=== PATIENT | male | born 1955 | race Caucasian/White ===

== ENCOUNTER 2016-02-29 19:24 | Emergency (ER) | payer OTHER ==
[~2016-02-29] VITALS: Ht 170.2 cm; Wt 120.0 kg
[~2016-02-29 19:24] MED LIST: ATOR40TA49 PO; CARV6.252 PO; LASI20TA PO; PLAV75TA PO; ST JTAB PO; SYNT150T OR
[2016-02-29 19:27] VITALS: BP 110/59; PULSE 98; RESP 16; TEMP 97.6; O2SAT 94
[2016-02-29 19:28] VITALS: PULSE 96; RESP 18; TEMP 98; O2SAT 96
[2016-02-29 23:23] VITALS: BP 100/56; PULSE 85; RESP 14; O2SAT 96
[2016-02-29] MEDS ORDERED: FURO1TAB62 PO (23:43)
[2016-02-29] MEDS ORDERED: LIPI40TA PO (23:43)
[2016-02-29] MEDS ORDERED: ASPI1TAB69 PO (23:43)
[2016-02-29] MEDS ORDERED: LEVO.15 PO (23:43)
[2016-02-29] MEDS ORDERED: SODIUM CHLORIDE 0.9% FLUSH 5 ML FLUSH IVF PRN (23:45)
--- NOTE | 2016-02-29 23:55 | PD ---
HPI Chief Complaint: Edema Time Seen by Provider: 23:31 Travel History International Travel<30 days: No Contact w/Intl Traveler<30days: No Traveled to known affect area: No History of Present Illness HPI This is A 60 year old male with past medical history of diabetes, who presents with bilateral leg edema distal to the knees. He states that he has ran out of the water pills prescribed by his primary care physician, and for the past several days, both legs have been swelling with itchiness predominantly in the left leg. He has purulent lesions predominantly in the left leg that he reports is being managed with by a wound care nurse. He denies, any history of congestive heart failure, cardiovascular disease, and family history of cardiovascular disease. Patient also denies any shortness of breath, palpitations, or chest pain. PFSH Past Medical History Hx Anticoagulant Therapy: Yes Arthritis: Yes Cardiac Catheterization: Yes Cardiovascular Problems: Yes ([place] 2012) Diabetes: Yes Patient Takes Glucophage: No Diminished Hearing: Yes (SLIGHT HEARING LOSS ) Hypertension: No Thyroid Disease: Yes (HYPO) Influenza Vaccination: Yes Past Surgical History Cardiac Surgery: Yes (STENT PLACED IN 09/28) Other Surgery: Yes (rt ft) Social History Alcohol Use: No Tobacco Use: No Substance Use: No Allergies-Medications (Allergen,Severity, Reaction): Coded Allergies: No Known Allergies (Verified , 02/29/16) Reported Meds & Prescriptions Reported Meds & Active Scripts Active Keflex (Cephalexin) 500 Mg Cap 500 Mg PO Q6H 10 Days Clindamycin (Clindamycin HCl) 150 Mg Cap 450 Mg PO Q6H 7 Days Lasix (Furosemide) 20 Mg Tab 20 Mg PO BID Reported Synthroid (Levothyroxine Sodium) 150 Mcg Tab 150 Mcg PO DAILY Lipitor (Atorvastatin Calcium) 40 Mg Tab 40 Mg PO DAILY Aspirin 81 Mg Tabdr 162 Mg PO DAILY Review of Systems Except as stated in HPI: all other systems reviewed are Neg Physical Exam Narrative GENERAL: obese male appears disheveled but oriented x3 SKIN: Warm, edema from knee to lower leg, patient has cellulitis of the left lower extremity anterior portions. He has a weeping wound to the posterior aspect of the distal most catheter. Is a small wound. No abscesses appreciated HEAD: Atraumatic. Normocephalic. EYES: Pupils equal and round. No scleral icterus. No injection or drainage. ENT: No nasal bleeding or discharge. Mucous membranes pink and moist. NECK: Trachea midline. No JVD. CARDIOVASCULAR: Regular rate and rhythm. RESPIRATORY: No accessory muscle use. Clear to auscultation. Breath sounds equal bilaterally. GASTROINTESTINAL: Abdomen soft, non-tender, nondistended. Hepatic and splenic margins not palpable. MUSCULOSKELETAL: Extremities without clubbing, cyanosis, bilateral edema in lower extremities. No obvious deformities. NEUROLOGICAL: Awake and alert. No obvious cranial nerve deficits. Motor grossly within normal limits. Five out of 5 muscle strength in the arms and legs. Normal speech. PSYCHIATRIC: Appropriate mood and affect; insight and judgment normal. Data Data Last Documented VS Vital Signs Date Time Temp Pulse Resp B/P Pulse Ox O2 Delivery O2 Flow Rate FiO2 03/01/16 02:57 74 16 99/63 95 Room Air 02/29/16 19:28 98.0 Orders Electrocardiogram (02/29/16 23:31) B-Type Natriuretic Peptide (02/29/16 23:31) Complete Blood Count With Diff (02/29/16 23:31) Comprehensive Metabolic Panel (02/29/16 23:31) Magnesium (Mg) (02/29/16 23:31) Prothrombin Time / Inr (Pt) (02/29/16 23:31) Act Partial Throm Time (Ptt) (02/29/16 23:31) Troponin I (02/29/16 23:31) Chest, Single Ap (02/29/16 23:31) Ecg Monitoring (02/29/16 23:31) Bilateral Bp Monitoring (02/29/16 23:31) Iv Access Insert/Monitor (02/29/16 23:31) Oximetry (02/29/16 23:31) Oxygen Administration (02/29/16 23:31) Sodium Chloride 0.9% Flush (Ns Flush) (02/29/16 23:45) Acetamin-Hydrocod 325-5 Mg ([place] 5-325 (03/01/16 01:00) Vancomycin Inj (Vancomycin Inj) (03/01/16 01:45) Clindamycin Inj (Cleocin Inj) (03/01/16 01:45) Labs Laboratory Tests Test 02/29/16 23:56 White Blood Count 8.8 TH/MM3 Red Blood Count 3.41 MIL/MM3 Hemoglobin 8.7 GM/DL Hematocrit 27.1 % Mean Corpuscular Volume 79.6 FL Mean Corpuscular Hemoglobin 25.7 PG Mean Corpuscular Hemoglobin 32.3 % Concent Red Cell Distribution Width 15.3 % Platelet Count 261 TH/MM3 Mean Platelet Volume 10.4 FL Neutrophils (%) (Auto) 65.3 % Lymphocytes (%) (Auto) 19.3 % Monocytes (%) (Auto) 6.6 % Eosinophils (%) (Auto) 7.4 % Basophils (%) (Auto) 1.4 % Neutrophils # (Auto) 5.8 TH/MM3 Lymphocytes # (Auto) 1.7 TH/MM3 Monocytes # (Auto) 0.6 TH/MM3 Eosinophils # (Auto) 0.7 TH/MM3 Basophils # (Auto) 0.1 TH/MM3 CBC Comment DIFF FINAL Differential Comment Prothrombin Time 10.8 SEC Prothromb Time International 1.0 RATIO Ratio Activated Partial 24.0 SEC Thromboplast Time Sodium Level 139 MEQ/L Potassium Level 4.0 MEQ/L Chloride Level 107 MEQ/L Carbon Dioxide Level 22.6 MEQ/L Anion Gap 9 MEQ/L Blood Urea Nitrogen 26 MG/DL Creatinine 1.98 MG/DL Estimat Glomerular Filtration 35 ML/MIN Rate Random Glucose 91 MG/DL Calcium Level 9.0 MG/DL Magnesium Level 2.0 MG/DL Total Bilirubin 0.4 MG/DL Aspartate Amino Transf 75 U/L (AST/SGOT) Alanine Aminotransferase 47 U/L (ALT/SGPT) Alkaline Phosphatase 63 U/L Troponin I LESS THAN 0.02 NG/ML B-Type Natriuretic Peptide 7 PG/ML Total Protein 6.6 GM/DL Albumin 2.7 GM/DL [facility] Medical Decision Making Medical Screen Exam Complete: Yes Emergency Medical Condition: No Differential Diagnosis Congestive Heart Failure Bilateral edema cellulitis of the left leg Chronic Kidney Disease possible uncontrolled diabetes Diabetic Neuropathy DVT is highly unlikely Sepsis is highly unlikely Narrative Course Patient roomed in the emergency department, he appears disheveled but nontoxic. He does have bilateral lower extremity edema which is equal bilaterally. He has some mild cellulitis on the left lower extremity and a nonhealing wound of the lateral aspect of the distal most left thigh. Labs are reassuring he is not septic. His cellulitis is amenable to outpatient treatment. He was given clindamycin in the ER. We'll prescribe clindamycin the patient is homeless and will also prescribe Keflex. Discussed with the patient return to ED criteria. Diagnosis Primary Impression: Pedal edema Additional Impression: Cellulitis Admitting Information Admitting Physician Requests: Admit Med/Other Pt SpecificInfo: Prescription(s) given Scripts Cephalexin (Keflex)500 Mg [id number] Mg PO Q6H 10 Days Ref 0 Prov:Girma Ramirez MD 03/01/16 Clindamycin 150 Mg [id number] Mg PO Q6H 7 Days Ref 0 Prov:Girma Ramirez MD 03/01/16 Furosemide (Lasix)20 Mg Tab20 Mg PO BID #60 TAB Ref 0 Prov:Girma Ramirez MD 03/01/16 Disposition: 01 DISCHARGE HOME Condition: Stable Girma Ramirez MD Feb 29, 2016 23:55
[2016-03-01 00:25] LABS: AUTOMATED NEUTROPHIL # 5.8 TH/MM3 (1.8-7.7); BASOPHIL # 0.1 TH/MM3 (0-0.2); BASOPHIL % 1.4 % (0.0-2.0); EOSINOPHIL # 0.7 TH/MM3 (0-0.4); EOSINOPHIL % 7.4 % (0.0-4.0); HEMATOCRIT 27.1 % (39.0-51.0); HEMO FLAGS DIFF FINAL; LYMPH % 19.3 % (9.0-44.0); LYMPHOCYTE # 1.7 TH/MM3 (1.0-4.8); MEAN CELL VOLUME 79.6 FL (80.0-100.0); MEAN CORPUSCULAR HEMOGLOBIN 25.7 PG (27.0-34.0); MEAN CORPUSCULAR HGB CONC 32.3 % (32.0-36.0); MONO % 6.6 % (0.0-8.0); NEUT % 65.3 % (16.0-70.0); PLATELET COUNT 261 TH/MM3 (150-450); RED BLOOD COUNT 3.41 MIL/MM3 (4.50-5.90); RED CELL DISTRIBUTION WIDTH 15.3 % (11.6-17.2); WHITE BLOOD COUNT 8.8 TH/MM3 (4.0-11.0)
[2016-03-01 00:33] LABS: PROTHROMBIN TIME - PATIENT 10.8 SEC (9.8-11.6)
--- NOTE | 2016-03-01 00:42 | RADRPT ---
EXAM DATE/TIME: 02/29/2016 23:58 [facility] COMPARISON: CHEST SINGLE AP, October 02, 2012, 17:39. INDICATIONS : Pt having chest pain. MEDICAL HISTORY : None. SURGICAL HISTORY : None. ENCOUNTER: Initial ACUITY: 1 day PAIN SCORE: 7/10 LOCATION: Bilateral chest FINDINGS: The cardiac silhouette is enlarged in transverse diameter. The lungs are free of acute parenchymal op acity. No effusions are identified. The aortic knob is prominent with tortuosity of the descending th oracic aorta. CONCLUSION: 1. Cardiomegaly. No acute pulmonary disease. Bunny Mcclain MD on March 01, 2016 at 0:40 Board Certified Radiologist. This report was verified electronically.
[2016-03-01 00:57] LABS: BLOOD UREA NITROGEN 26 MG/DL (7-18); GLOMERULAR FILTRATION RATE 35 ML/MIN (>89)
[2016-03-01 00:58] LABS: ALT (GPT) 47 U/L (12-78); ANION GAP 9 MEQ/L (5-15); AST (GOT) 75 U/L (15-37); BICARBONATE 22.6 MEQ/L (21.0-32.0); CHLORIDE 107 MEQ/L (98-107); SODIUM (NA) 139 MEQ/L (136-145)
[2016-03-01 00:59] LABS: ALKALINE PHOSPHATASE 63 U/L (45-117); TOTAL BILIRUBIN ADULT 0.4 MG/DL (0.2-1.0)
[2016-03-01] MEDS ORDERED: ACETAMINOPHEN/HYDROcodone 325 MG/5 MG TAB PO ONE (01:00)
[2016-03-01 01:13] VITALS: BP 104/60; PULSE 86; RESP 20; O2SAT 100
[2016-03-01] MEDS ORDERED: VANCOMYCIN INJ 1,000 MG in SODIUM CHLOR 0.9% 250 ML INJ 250 ML IV ONE (01:45)
[2016-03-01] MEDS ORDERED: CLINDAMYCIN INJ 900 MG in SODIUM CHLORIDE 0.9% INJ 100 ML IV ONE (01:45)
[2016-03-01] MEDS ORDERED: FURO1TAB62 PO (02:13)
[2016-03-01] MEDS ORDERED: CEPH-460 PO (02:13)
[2016-03-01] MEDS ORDERED: CLIN1CAP5 PO (02:13)
[2016-03-01 02:57] VITALS: BP 99/63; PULSE 74; RESP 16; O2SAT 95
[2016-03-01 06:23] VITALS: BP 109/62
--- NOTE | 2016-03-01 15:40 | EKG ---
Date Performed: 02/29/2016 Time Performed: 23:38:29 PTAGE: 60 years EKG: Sinus rhythm MARKED LEFT AXIS DEVIATION Right bundle branch block LATERAL MYOCARDIAL INFARCTION New Q wave in V2, cannot rule out anterior injury Clinical correlation is recommended ABNORMAL ECG PREVIOUS TRACING : 04/10/2015 15.57 DOCTOR: Hamilton Saldivar Interpretating Date/Time 03/01/2016 15:39:03
[2016-03-05] MEDS ORDERED: PLAV75TA29 PO (15:44)
== END 2016-03-01 06:42 | disposition home or self-care (01) ==
LOC: NEPC 19:24
DX: R60.0 Localized edema (principal); L03.116 Cellulitis of left lower limb; E11.9 Type 2 diabetes mellitus without complications; I25.2 Old myocardial infarction; R94.31 Abnormal electrocardiogram [ECG] [EKG]; Z79.82 Long term (current) use of aspirin; Z79.899 Other long term (current) drug therapy
CPT/HCPCS: 71010; 80053; 83735; 83880; 84484; 85025; 85610; 85730; 93005; 96365

== ENCOUNTER 2016-03-13 08:12 | Emergency (ER) | payer OTHER ==
[~2016-03-13 08:12] MED LIST changes: +ASPI1TAB69 PO; -ATOR40TA49 PO; -CARV6.252 PO; +CEPH-460 PO; +CLIN1CAP5 PO; +FURO1TAB62 PO; -LASI20TA PO; +LEVO.15 PO; +LIPI40TA PO; -PLAV75TA PO; +PLAV75TA29 PO; -ST JTAB PO; -SYNT150T OR
[2016-03-13 08:18] VITALS: BP 92/57; PULSE 68; RESP 16; TEMP 97.6; O2SAT 97
[2016-03-13] MEDS ORDERED: ACETAMINOPHEN 500 MG CPLT PO ONE (08:30)
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
[2016-03-13 09:13] LABS: BASOPHIL % 0.4 % (0.0-2.0); EOSINOPHIL # 0.8 TH/MM3 (0-0.4); EOSINOPHIL % 10.2 % (0.0-4.0); HEMATOCRIT 27.8 % (39.0-51.0); HEMO FLAGS DIFF FINAL; LYMPH % 19.7 % (9.0-44.0); LYMPHOCYTE # 1.5 TH/MM3 (1.0-4.8); MEAN CELL VOLUME 79.7 FL (80.0-100.0); MEAN CORPUSCULAR HEMOGLOBIN 25.4 PG (27.0-34.0); MEAN CORPUSCULAR HGB CONC 31.9 % (32.0-36.0); MONO % 6.4 % (0.0-8.0); NEUT % 63.3 % (16.0-70.0); PLATELET COUNT 352 TH/MM3 (150-450); RED BLOOD COUNT 3.49 MIL/MM3 (4.50-5.90); RED CELL DISTRIBUTION WIDTH 15.1 % (11.6-17.2); WHITE BLOOD COUNT 7.8 TH/MM3 (4.0-11.0)
[2016-03-13 09:53] LABS: BICARBONATE 21.7 MEQ/L (21.0-32.0)
[2016-03-13 09:54] LABS: BLOOD UREA NITROGEN 15 MG/DL (7-18)
[2016-03-13 09:56] LABS: ALT (GPT) 43 U/L (12-78); GLOMERULAR FILTRATION RATE 34 ML/MIN (>89)
[2016-03-13 09:58] LABS: TOTAL BILIRUBIN ADULT 0.5 MG/DL (0.2-1.0)
[2016-03-13 09:59] LABS: ALKALINE PHOSPHATASE 63 U/L (45-117)
[2016-03-13 10:01] LABS: ANION GAP 10 MEQ/L (5-15); CHLORIDE 105 MEQ/L (98-107); POTASSIUM 3.4 MEQ/L (3.5-5.1); SODIUM (NA) 137 MEQ/L (136-145)
--- NOTE | 2016-03-13 10:08 | RADHPO ---
EXAM DATE/TIME: 03/13/2016 09:19 [facility] COMPARISON: No previous studies available for comparison. INDICATIONS : Right upper leg pain, no known injury. MEDICAL HISTORY : None. SURGICAL HISTORY : None. ENCOUNTER: Initial ACUITY: 1 day PAIN SCORE: 10/10 LOCATION: Right femur FINDINGS: 2 views of the right femur demonstrates no evidence of fracture or dislocation. The femoral head is a bnormally flattened and subluxed laterally within a very shallow acetabulum consistent with developme ntal hip dysplasia. The bones are normally mineralized. Adjacent soft tissues are unremarkable. CONCLUSION: No evidence of acute injury. Abnormal appearance of the femoral head and acetabulum consistent with d evelopmental hip dysplasia.. Charlette Schaefer MD on March 13, 2016 at 10:05 Board Certified Radiologist. This report was verified electronically.
--- NOTE | 2016-03-13 10:09 | RADHPO ---
EXAM DATE/TIME: 03/13/2016 09:25 [facility] COMPARISON: No previous studies available for comparison. INDICATIONS : Right lower leg pain, no known injury. MEDICAL HISTORY : None. SURGICAL HISTORY : None. ENCOUNTER: Initial ACUITY: 1 day PAIN SCORE: 10/10 LOCATION: Right lower leg FINDINGS: Two view examination of the right tibia demonstrates no evidence of fracture or dislocation. Bony mi neralization is normal. The soft tissue structures are intact. Lateral view of the ankle suggest fus ion of the calcaneus and talus. CONCLUSION: No acute disease. Charlette Schaefer MD on March 13, 2016 at 10:06 Board Certified Radiologist. This report was verified electronically.
[2016-03-13 10:16] LABS: AST (GOT) 79 U/L (15-37)
[2016-03-13 11:29] VITALS: BP 114/66
[2016-03-14] MEDS ORDERED: TYLETAB34 PO (09:08)
[2016-03-14] MEDS ORDERED: SYNT25TA PO (09:18)
== END 2016-03-13 11:37 | disposition home or self-care (01) ==
LOC: PHED 08:12
DX: T14.8 Other injury of unspecified body region (principal); Z99.3 Dependence on wheelchair; Z79.01 Long term (current) use of anticoagulants; E11.9 Type 2 diabetes mellitus without complications; X50.0XXA Overexertion from strenuous movement or load, initial encounter
CPT/HCPCS: 73552; 73590; 80053; 83880; 85025; 99284

== ENCOUNTER 2016-03-14 08:39 | Emergency (ER) | payer OTHER, MEDICAID ==
[~2016-03-14] VITALS: Ht 167.6 cm; Wt 118.0 kg
[~2016-03-14 08:39] MED LIST changes: -ASPI1TAB69 PO; -CEPH-460 PO; -CLIN1CAP5 PO; -LEVO.15 PO; -LIPI40TA PO; -PLAV75TA29 PO
[2016-03-14 09:01] VITALS: BP 95/57; PULSE 72; RESP 18; TEMP 97.6; O2SAT 99
[2016-03-14] MEDS ORDERED: TYLETAB34 PO (09:08)
--- NOTE | 2016-03-14 09:10 | PD ---
HPI Chief Complaint: Pain: Acute or Chronic Time Seen by Provider: 08:54 Travel History International Travel<30 days: No Contact w/Intl Traveler<30days: No Traveled to known affect area: No History of Present Illness HPI This is a frequent visitor to the ER. He was seen here yesterday for the same reason he is here today. He called 911 and asked paramedics to bring him here for left hip pain. He has chronic left hip pain. No acute injury. He is wheelchair bound and homeless. Symptoms severity is mild to moderate PFSH Past Medical History Hx Anticoagulant Therapy: Yes Arthritis: Yes Cardiac Catheterization: Yes Cardiovascular Problems: Yes ([place] 2012) Diabetes: Yes Diminished Hearing: Yes (SLIGHT HEARING LOSS ) Hypertension: No Thyroid Disease: Yes (HYPO-NO MEDS) Past Surgical History Cardiac Surgery: Yes (STENT PLACED IN 09/28) Other Surgery: Yes (rt ft) Social History Alcohol Use: No Tobacco Use: No Substance Use: No Allergies-Medications (Allergen,Severity, Reaction): Coded Allergies: No Known Allergies (Verified , 03/13/16) Reported Meds & Prescriptions Reported Meds & Active Scripts Active Lasix (Furosemide) 20 Mg Tab 20 Mg PO BID Review of Systems General / Constitutional: No: Fever HENT: No: Headaches Cardiovascular: No: Chest Pain or Discomfort Physical Exam Narrative GASTROINTESTINAL: Abdomen soft, non-tender, nondistended. Positive bowel sounds. No hepato-splenomegaly, or palpable masses. No guarding. NECK: Symmetrical appearance, midline trachea. No mass or crepitus. Thyroid without enlargement, tenderness, or mass. He has pain with range of motion of either hip Data Data Last Documented VS Vital Signs Date Time Temp Pulse Resp B/P Pulse Ox O2 Delivery O2 Flow Rate FiO2 03/14/16 09:04 72 16 03/14/16 09:01 97.6 95/57 99 MDM Medical Decision Making Medical Screen Exam Complete: Yes Emergency Medical Condition: Yes Medical Record Reviewed: Yes Differential Diagnosis Arthritis, contusion, chronic pain Narrative Course I have reviewed the patient's electronic medical record. Reviewed his visit from yesterday. He had lab studies and x-rays done yesterday. I don't think repeat workup from yesterday is indicated. I wrote him some Tylenol 3 for intermittent symptom relief if needed. He says he can fill prescriptions. Recommend primary care follow-up Diagnosis Primary Impression: Chronic left hip pain Additional Impression: Homelessness Additional Instructions: The patient was advised to follow up with their physician and return if they worsen. The patient was warned about potential sedation for the medications they will receive on prescription. Med/Other Pt SpecificInfo: Prescription(s) given Scripts Acetaminophen-Codeine (Tylenol-Codeine #3)300-30 mg Tab1 Tab PO Q6HR PRN (PAIN) #20 TAB Ref 0 Prov:Lucas Mueller MD 03/14/16 Disposition: 01 DISCHARGE HOME Condition: Stable Lucas Mueller MD Mar 14, 2016 09:10
[2016-03-14] MEDS ORDERED: SYNT25TA PO (09:18)
== END 2016-03-14 10:18 | disposition home or self-care (01) ==
LOC: PHED 08:39
DX: M25.552 Pain in left hip (principal); G89.29 Other chronic pain; Z59.0 Homelessness
CPT/HCPCS: 99283

== ENCOUNTER 2016-03-15 02:35 | Emergency (ER) | payer OTHER, MEDICAID ==
[~2016-03-15] VITALS: Ht 167.6 cm; Wt 125.0 kg
[~2016-03-15 02:35] MED LIST changes: +SYNT25TA PO; +TYLETAB34 PO
[2016-03-15 02:42] VITALS: BP 90/55; PULSE 70; RESP 18; TEMP 98.7; O2SAT 96
--- NOTE | 2016-03-15 02:48 | PD ---
HPI Chief Complaint: Pain: Acute or Chronic Time Seen by Provider: 02:40 Travel History International Travel<30 days: No Contact w/Intl Traveler<30days: No History of Present Illness HPI 60-year-old homeless man frequent emergency department gas presents with lower extremity cramping. He states he was started on a water pill for some cellulitis a week or so ago. He's been having cramping in his legs at night. He also some numbness in his toes. No other complaints. History Past Medical History Narrative Medical Diabetes CAD Hypothyroid Social History Alcohol Use: No Tobacco Use: No Allergies-Medications (Allergen,Severity, Reaction): Coded Allergies: No Known Allergies (Verified , 03/15/16) Reported Meds & Prescriptions Reported Meds & Active Scripts Active Tylenol-Codeine #3 (Acetaminophen-Codeine) 300-30 mg Tab 1 Tab PO Q6HR PRN Lasix (Furosemide) 20 Mg Tab 20 Mg PO BID Reported Synthroid (Levothyroxine Sodium) 25 Mcg Tab 25 Mcg PO DAILY Review of Systems Except as stated in HPI: all other systems reviewed are Neg Physical Exam Narrative GENERAL: Disheveled obese adult male, no acute distress. SKIN: Warm and dry. CARDIOVASCULAR: Regular rate and rhythm. No murmur appreciated. RESPIRATORY: No accessory muscle use. Clear to auscultation. Breath sounds equal bilaterally. GASTROINTESTINAL: Abdomen soft, non-tender, nondistended. Hepatic and splenic margins not palpable. MUSCULOSKELETAL: No obvious deformities. Chronic edema both lower extremities. Wrapped wounds on the left leg. NEUROLOGICAL: Awake and alert, but drowsy. No obvious cranial nerve deficits. Motor grossly within normal limits. Normal speech. Data Data Last Documented VS Vital Signs Date Time Temp Pulse Resp B/P Pulse Ox O2 Delivery O2 Flow Rate FiO2 03/15/16 02:42 98.7 70 18 90/55 96 Orders Basic Metabolic Panel (Bmp) (03/15/16 02:44) Sodium Chlor 0.9% 1000 Ml Inj (Ns 1000 M (03/15/16 03:00) Labs Laboratory Tests Test 03/15/16 02:50 Sodium Level 140 MEQ/L Potassium Level 3.7 MEQ/L Chloride Level 108 MEQ/L Carbon Dioxide Level 21.7 MEQ/L Anion Gap 10 MEQ/L Blood Urea Nitrogen 19 MG/DL Creatinine 1.92 MG/DL Estimat Glomerular Filtration 36 ML/MIN Rate Random Glucose 93 MG/DL Calcium Level 8.7 MG/DL [facility] Medical Decision Making Medical Screen Exam Complete: Yes Emergency Medical Condition: Yes Interpretation(s) BMP remarkable for mildly elevated BUN/creatinine. Differential Diagnosis Cramping, pain, electrolyte abnormality, other Narrative Course Medical decision making 5 year-old man presents with cramping in his legs. There is recently started on a water pill. We'll just recheck his potassium. Otherwise supportive treatment. Diagnosis Primary Impression: Leg cramping Qualified Code: R25.2 - Cramp of both lower extremities Additional Instructions: Follow-up with a primary physician for further evaluation of her chronic medical problems. Med/Other Pt SpecificInfo: No Change to Meds Disposition: 01 DISCHARGE HOME Condition: Stable Darin Hidalgo MD Mar 15, 2016 02:48
[2016-03-15] MEDS ORDERED: SODIUM CHLOR 0.9% 1000 ML INJ 1,000 ML IV ONE (03:00)
[2016-03-15 03:41] LABS: BICARBONATE 21.7 MEQ/L (21.0-32.0); POTASSIUM 3.7 MEQ/L (3.5-5.1)
== END 2016-03-15 07:20 | disposition home or self-care (01) ==
LOC: NEPE 02:35
DX: R25.2 Cramp and spasm (principal)
CPT/HCPCS: 80048; 96360; 99283; J7030

== ENCOUNTER 2016-04-30 01:19 | Inpatient (IN) | payer OTHER, MEDICARE ==
[~2016-04-30] VITALS: Ht 167.6 cm; Wt 132.0 kg
[2016-04-30] VITALS (10 sets, daily range): BP systolic 85–133; BP diastolic 50–69; PULSE 22–88; RESP 16–22; TEMP 97.5–97.9; O2SAT 95–100
--- NOTE | 2016-04-30 02:34 | PD ---
HPI Chief Complaint: Pain: Acute or Chronic Time Seen by Provider: 02:30 Travel History International Travel<30 days: No Contact w/Intl Traveler<30days: No Traveled to known affect area: No History of Present Illness HPI Patient comes in by EMS complaining of left shoulder, right knee, and right hip pain after falling out of his wheelchair yesterday at his personal [facility]. Patient states he was seen at different ER where he had his right leg ultrasound and an x-ray of his left ankle. Patient states she forgot to mention his left shoulder yesterday. Denies any head injury or loss of consciousness. Patient having pain that he describes as achy like in nature is worse with certain movement in all 3 joints. Patient denies doing anything else for this prior coming to the emergency department. Denies any other known injuries or concerns. Denies any chest pain, shortness of breath, nausea, fevers, or abdominal pain. PFSH Past Medical History Hx Anticoagulant Therapy: Yes (ASA) Arthritis: Yes Cardiac Catheterization: Yes Cardiovascular Problems: Yes High Cholesterol: Yes Coronary Artery Disease: Yes Diabetes: Yes Diminished Hearing: Yes (SLIGHT HEARING LOSS ) Hypertension: No Integumentary: Yes (wounds to bilat legs) Thyroid Disease: Yes (HYPO-) Past Surgical History Cardiac Surgery: Yes (STENT PLACED IN 09/28) Other Surgery: Yes (rt ft) Social History Alcohol Use: No Tobacco Use: No (never) Substance Use: No Allergies-Medications (Allergen,Severity, Reaction): Coded Allergies: No Known Allergies (Verified , 04/30/16) Reported Meds & Prescriptions Reported Meds & Active Scripts Active Tylenol-Codeine #3 (Acetaminophen-Codeine) 300-30 mg Tab 1 Tab PO Q6HR PRN Lasix (Furosemide) 20 Mg Tab 20 Mg PO BID Reported Synthroid (Levothyroxine Sodium) 25 Mcg Tab 25 Mcg PO DAILY Review of Systems Except as stated in HPI: all other systems reviewed are Neg Physical Exam Narrative GENERAL: Well-developed, overly nourished, in no acute distress, and non-ill appearing. SKIN: Warm and dry. Erythematous and bilateral lower extremities. Patient reports this is chronic. HEAD: Atraumatic. Normocephalic. EYES: Pupils equal and round. EOMI. No scleral icterus. No injection or drainage. ENT: No nasal bleeding or discharge. Mucous membranes pink and moist. NECK: Trachea midline. Supple. No nuclear rigidity. CARDIOVASCULAR: Dorsal and radial pulses 2+, intact, and equal bilaterally. Capillary refill less than 2 seconds. RESPIRATORY: No accessory muscle use. No respiratory distress. MUSCULOSKELETAL: No obvious deformities. No clubbing. No cyanosis. 1+ edema bilateral lower extremities patient reports is chronic. Full range of motion. Shoulder:FROM equal BL with passive flexion, extension, Abduction, Adduction, internal/external rotation, and pronation/supination. Sensation equal BL deltoid muscles. Pulses equal BL distal to injury. Capillary refill less than 2 seconds distal to injury and equal BL. FROM distal to injury and equal BL. Strength distal to injury equal BL. NV intact distal to injury equal BL. Flexion and extension of thumb equal BL. Equal strength and movement with abduction/adductions of BL fingers. [employer] strength equal BL. Patient reports tenderness to palpation left lateral shoulder.Knee: Negative patellar apprehension, varus and valgus maneuvers, anterior draw test, and Fermín test. Pulses equal BL distal to injury. Capillary refill less than 2 seconds distal to injury and equal BL. FROM distal to injury and equal BL. Strength distal to injury equal BL. NV intact distal to injury. Dorsal pulses equal BL. Patient reports tenderness anterior aspect of right knee.Hip: FROM and equal BL with passive flexion, extension, Abduction, Adduction, and internal/ external rotation. Pulses equal BL distal to injury. Capillary refill less than 2 seconds distal to injury and equal BL. FROM distal to injury and equal BL. Strength distal to injury equal BL. NV intact distal to injury and equal BL. Plantar flexion and dorsal flexion equal BL. Dorsal pulses equal BL. Patient reports pain with passive movement of right hip. NEUROLOGICAL: Awake and alert. No obvious cranial nerve deficits. Motor grossly within normal limits. Normal speech. PSYCHIATRIC: Appropriate mood and affect; insight and judgment normal. Data Data Last Documented VS Vital Signs Date Time Temp Pulse Resp B/P Pulse Ox O2 Delivery O2 Flow Rate FiO2 04/30/16 09:53 53 20 105/67 100 Room Air 04/30/16 01:28 97.5 Orders Shoulder, Complete (>2vws) (04/30/16 ) Knee, Complete (4vws) (04/30/16 ) Hip, Uni(Ap&Lat) W Ap Pelvis (04/30/16 ) Complete Blood Count With Diff (3/15/17 07:50) Comprehensive Metabolic Panel (04/30/16 07:50) Urinalysis - C+S If Indicated (04/30/16 07:50) Chest, Single Ap (04/30/16 ) Blood Culture (04/30/16 07:50) Lactic Acid (04/30/16 07:50) Clindamycin Inj (Cleocin Inj) (04/30/16 08:00) Morphine Inj (Morphine Inj) (04/30/16 08:00) Ondansetron Inj (Zofran Inj) (04/30/16 08:00) Us Testicles W Doppler (04/30/16 ) Sodium Chlorid 0.9% 500 Ml Inj (Ns 500 M (04/30/16 08:30) Ciprofloxacin 400 Mg Premix (Cipro 400 M (04/30/16 10:00) Admit Order (Ed Use Only) (04/30/16 10:44) Labs Laboratory Tests Test 04/30/16 08:02 White Blood Count 7.3 TH/MM3 Red Blood Count 3.79 MIL/MM3 Hemoglobin 9.7 GM/DL Hematocrit 29.6 % Mean Corpuscular Volume 78.1 FL Mean Corpuscular Hemoglobin 25.6 PG Mean Corpuscular Hemoglobin 32.8 % Concent Red Cell Distribution Width 16.8 % Platelet Count 183 TH/MM3 Mean Platelet Volume 10.5 FL Neutrophils (%) (Auto) 68.3 % Lymphocytes (%) (Auto) 18.2 % Monocytes (%) (Auto) 5.4 % Eosinophils (%) (Auto) 7.6 % Basophils (%) (Auto) 0.5 % Neutrophils # (Auto) 5.0 TH/MM3 Lymphocytes # (Auto) 1.3 TH/MM3 Monocytes # (Auto) 0.4 TH/MM3 Eosinophils # (Auto) 0.6 TH/MM3 Basophils # (Auto) 0.0 TH/MM3 CBC Comment DIFF FINAL Differential Comment Sodium Level 138 MEQ/L Potassium Level 3.4 MEQ/L Chloride Level 109 MEQ/L Carbon Dioxide Level 21.8 MEQ/L Anion Gap 7 MEQ/L Blood Urea Nitrogen 25 MG/DL Creatinine 2.03 MG/DL Estimat Glomerular Filtration 33 ML/MIN Rate Random Glucose 107 MG/DL Lactic Acid Level 1.3 mmol/L Calcium Level 8.8 MG/DL Magnesium Level 2.1 MG/DL Total Bilirubin 0.2 MG/DL Aspartate Amino Transf 87 U/L (AST/SGOT) Alanine Aminotransferase 27 U/L (ALT/SGPT) Alkaline Phosphatase 70 U/L Total Creatine Kinase 1746 U/L Creatine Kinase MB 28.6 NG/ML Creatine Kinase MB % 1.6 % Total Protein 7.0 GM/DL Albumin 3.1 GM/DL MDM Medical Decision Making Medical Screen Exam Complete: Yes Emergency Medical Condition: Yes Differential Diagnosis Fracture, strain, contusion, malingering, other Narrative Course Patient is refusing CAT scan for further evaluation of incidental finding noted on pelvic x-ray of the right hip. Patient states he cannot lay flat and has not been able to do so for several years. He states this incidental finding is a chronic condition and is from an old injury that he never got fixed. Patient denies any pain in his left hip. I discussed the findings x-rays of arthritic findings noted on shoulder x-ray and chronic right femoral head deformities that is unchanged from his previous x-rays. Patient in no obvious distress upon re-evaluation. All pertinent Radiology result(s) discussed with patient. I discussed patient with Dr. Delgado who is in agreement with plan of care and disposition. Any questions/concerns in reference to patient diagnosis/condition discussed and clarified prior to patient's discharge. Reinforced sheer importance of close follow up with patient 's primary physician or primary care clinic and orthopedics. Diagnosis Primary Impression: Left shoulder pain Qualified Code: M25.512 - Acute pain of left shoulder Additional Impressions: Right knee pain Qualified Code: M25.561 - Acute pain of right knee Right hip pain Referrals: Israel Mcclain MD Patient Instructions: Arthritis (ED), General Instructions, Hip Pain (ED), Knee Pain (ED), Shoulder Pain (ED) Condition: Stable Mendoza [place] Apr 30, 2016 02:34 Mendoza [place] Apr 30, 2016 02:34
--- NOTE | 2016-04-30 03:37 | RADRPT ---
EXAM DATE/TIME: 04/30/2016 02:53 [facility] COMPARISON: CHEST SINGLE AP, February 29, 2016, 23:58. INDICATIONS : Shoulder pain. MEDICAL HISTORY : None. SURGICAL HISTORY : None. ENCOUNTER: Initial ACUITY: 1 day PAIN SCORE: 0/10 LOCATION: Left shoulder FINDINGS: 2 views of the left shoulder. Bone alignment within normal limits. Deformity of the humeral head and glenoid indicating arthrosis. This finding is also seen on the prior chest x-ray of 02/29/2016. No rosana dence of acute fracture. Mild acromioclavicular joint arthritic findings. CONCLUSION: 1. Moderate severity left glenohumeral joint arthritic findings. 2. Mild acromioclavicular joint arthritic findings. Jose Wheeler MD on April 30, 2016 at 3:32 Board Certified Radiologist. This report was verified electronically.
--- NOTE | 2016-04-30 03:45 | RADRPT ---
EXAM DATE/TIME: 04/30/2016 03:06 [facility] COMPARISON: FEMUR RIGHT (AP & LAT/2VWS), March 13, 2016, 9:19. INDICATIONS : Hip pain. MEDICAL HISTORY : None. SURGICAL HISTORY : None. ENCOUNTER: Initial ACUITY: 1 day PAIN SCORE: 0/10 LOCATION: Right hip FINDINGS: 3 views of the right hip and pelvis. There is chronic deformity of the right femoral head enlargement and flattening of the femoral head contour indicating coxa magna deformity. No evidence of dislocati on. Severe narrowing of the right hip. Deformity of the proximal left femur and apparent superior sub luxation/dislocation of the left femoral head noted. CONCLUSION: 1. 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 Most likely etiology is prior developm ental dysplasia of the hip. No acute fracture identified. Findings are unchanged from prior right fem ur radiographs. 2. There is deformity of the left femoral head as well with possible subluxation/dislocation superior ly of the left femoral head. Jose Wheeler MD on April 30, 2016 at 3:36 Board Certified Radiologist. This report was verified electronically.
--- NOTE | 2016-04-30 03:46 | RADRPT ---
EXAM DATE/TIME: 04/30/2016 03:11 [facility] COMPARISON: HIP RIGHT (AP&LAT 2/3VWS) W AP PELVIS, April 30, 2016, 3:06. INDICATIONS : Knee pain. MEDICAL HISTORY : None. SURGICAL HISTORY : None. ENCOUNTER: Initial ACUITY: 1 day PAIN SCORE: 0/10 LOCATION: Right knee FINDINGS: 3 views of the right knee. Bone alignment within normal limits. No evidence of fracture. No evidence of joint effusion. CONCLUSION: Right knee series within normal limits. Jose Wheeler MD on April 30, 2016 at 3:43 Board Certified Radiologist. This report was verified electronically.
--- NOTE | 2016-04-30 07:59 | PD ---
Physical Exam Date Seen by Provider: Apr 30, 2016 Time Seen by Provider: 07:58 Narrative The patient is a 61-year-old male was initially evaluated by the mid-level provider. Please refer to the initial history, physical, diagnostic evaluation , treatment modality plan. Data Data Last Documented VS Vital Signs Date Time Temp Pulse Resp B/P Pulse Ox O2 Delivery O2 Flow Rate FiO2 04/30/16 09:53 53 20 105/67 100 Room Air 04/30/16 01:28 97.5 Orders Shoulder, Complete (>2vws) (04/30/16 ) Knee, Complete (4vws) (04/30/16 ) Hip, Uni(Ap&Lat) W Ap Pelvis (04/30/16 ) Complete Blood Count With Diff (04/30/16 07:50) Comprehensive Metabolic Panel (04/30/16 07:50) Urinalysis - C+S If Indicated (04/30/16 07:50) Chest, Single Ap (04/30/16 ) Blood Culture (04/30/16 07:50) Lactic Acid (04/30/16 07:50) Clindamycin Inj (Cleocin Inj) (04/30/16 08:00) Morphine Inj (Morphine Inj) (04/30/16 08:00) Ondansetron Inj (Zofran Inj) (04/30/16 08:00) Us Testicles W Doppler (04/30/16 ) Sodium Chlorid 0.9% 500 Ml Inj (Ns 500 M (04/30/16 08:30) Ciprofloxacin 400 Mg Premix (Cipro 400 M (04/30/16 10:00) Vascular Poc Ultrasound (04/30/16 ) Admit Order (Ed Use Only) (04/30/16 10:44) Labs Laboratory Tests Test 04/30/16 08:02 White Blood Count 7.3 TH/MM3 Red Blood Count 3.79 MIL/MM3 Hemoglobin 9.7 GM/DL Hematocrit 29.6 % Mean Corpuscular Volume 78.1 FL Mean Corpuscular Hemoglobin 25.6 PG Mean Corpuscular Hemoglobin 32.8 % Concent Red Cell Distribution Width 16.8 % Platelet Count 183 TH/MM3 Mean Platelet Volume 10.5 FL Neutrophils (%) (Auto) 68.3 % Lymphocytes (%) (Auto) 18.2 % Monocytes (%) (Auto) 5.4 % Eosinophils (%) (Auto) 7.6 % Basophils (%) (Auto) 0.5 % Neutrophils # (Auto) 5.0 TH/MM3 Lymphocytes # (Auto) 1.3 TH/MM3 Monocytes # (Auto) 0.4 TH/MM3 Eosinophils # (Auto) 0.6 TH/MM3 Basophils # (Auto) 0.0 TH/MM3 CBC Comment DIFF FINAL Differential Comment Sodium Level 138 MEQ/L Potassium Level 3.4 MEQ/L Chloride Level 109 MEQ/L Carbon Dioxide Level 21.8 MEQ/L Anion Gap 7 MEQ/L Blood Urea Nitrogen 25 MG/DL Creatinine 2.03 MG/DL Estimat Glomerular Filtration 33 ML/MIN Rate Random Glucose 107 MG/DL Lactic Acid Level 1.3 mmol/L Calcium Level 8.8 MG/DL Total Bilirubin 0.2 MG/DL Aspartate Amino Transf 87 U/L (AST/SGOT) Alanine Aminotransferase 27 U/L (ALT/SGPT) Alkaline Phosphatase 70 U/L Total Protein 7.0 GM/DL Albumin 3.1 GM/DL [facility] Medical Record Reviewed: Yes Supervised Visit with CEZAR: Yes Interpretation(s) Last Impressions Shoulder X-Ray 04/30/16 0000 Signed Impressions: Service Date/Time: Saturday, April 30, 2016 02:53 - CONCLUSION: 1. Moderate severity left glenohumeral joint arthritic findings. 2. Mild acromioclavicular joint arthritic findings. Jose Wheeler MD Knee X-Ray 04/30/16 0000 Signed Impressions: Service Date/Time: Saturday, April 30, 2016 03:11 - CONCLUSION: Right knee series within normal limits. Jose Wheeler MD Hip and Pelvis X-Ray 04/30/16 0000 Signed Impressions: Service Date/Time: Saturday, April 30, 2016 03:06 - CONCLUSION: 1. 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 Most likely etiology is prior developmental dysplasia of the hip. No acute fracture identified. Findings are unchanged from prior right femur radiographs. 2. There is deformity of the left femoral head as well with possible subluxation/dislocation superiorly of the left femoral head. Jose Wheeler MD Chest X-Ray 04/30/16 0000 Signed Impressions: Service Date/Time: Saturday, April 30, 2016 08:32 - CONCLUSION: Hypoaerated lungs otherwise no evidence of significant congestion or acute air space disease. Vaughn Porter MD Ultrasound the testicle with Doppler reveals very prominent scrotal skin thickening. Both testicles appear small with reduced flow although there is minimal flow seen bilaterally. Echogenic material seen within the hemiscrotum bilaterally around the testicles likely related to prominent epididymis and or some degree of echogenic material within the hemiscrotum such as hemorrhage. Differential Diagnosis Differential diagnosis includes hypoalbuminemia, dependent edema, cellulitis, chronic skin ulcer, poor social situation, fracture, contusion, dislocation. Narrative Course I, Dr. Nielsen, have reviewed the advance practice practitioner's documentation and am in agreement, met with the patient face to face, made the diagnosis, and the medical decision making was done by me. *My assessment and Findings: The patient is a 61-year-old male was initially evaluated by the mid-level provider, had x-rays of the pelvis, hip, right knee, and left shoulder which revealed chronic changes but no acute fractures. The patient is currently wheelchair bound, unable to ambulate, and is currently homeless. He has been sleeping in a building at night, but mostly during the day. He has no family in the area and has been unable to follow-up with home health care or his primary physician for chronic wound care of a chronic left knee ulcer. He now notes edema of the left lower extremity with redness and increasing pain. He also complains of significant swelling to the scrotum over the last 2 weeks. He is unsure if he has been running a fever. The patient states his primary physician was Dr. Stoll and he was having home health care for the chronic leg/knee wound, however, is not currently having wound care performed to the chronic ulcer. The patient was going to be discharged with a probable pod, however, is unable to ambulate and unable to obtain care outside the hospital for chronic knee ulcer. He also appears to have sialitis and probable hypoalbuminemia with physical examination. Therefore, blood cultures were sent to lab and the patient was administered clindamycin. The patient does have [employer], therefore, [facility] will be paged for admission, patient will need antibiotics, wound care consultation, case management for placement. An ultrasound was performed of the patient's scrotum to rule out abscess was significant edema and erythema over the affected area. 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 The patient also was seen at [facility] yesterday where he apparently had an ultrasound of the left knee and left lower extremity. Therefore, we attempted to obtain ultrasound reports from [facility]. The patient will need to be 23 hour observation with case management, patient will need permanent placement for continuing care of his chronic medical problems, patient is unable to care for himself and is currently homeless. The patient's ultrasound reveals scrotal skin thickening as well as echogenic material likely related to prominent epididymis and/or some degree of echogenic material within the hemiscrotum such as hemorrhage. Therefore, the patient was administered Cipro. Ultrasound report from [facility] was performed on April 29, 2016 reveals no left lower extremity DVT. Physician Communication Physician Communication [facility] were paged for admission/23 hour observation. I discussed the patient with Dr. Mack who agrees with 23 hour observation. Diagnosis Primary Impression: Left shoulder pain Qualified Code: M25.512 - Acute pain of left shoulder Additional Impressions: Right hip pain Right knee pain Qualified Code: M25.561 - Acute pain of right knee Decubitus ulcer of knee Qualified Code: L89.892 - Decubitus ulcer of left knee, stage 2 Cellulitis of scrotum Admitting Information Admitting Physician Requests: Observation Referrals: Israel Mcclain MD Patient Instructions: General Instructions, Knee Pain (ED), Shoulder Pain (ED) , Hip Pain (ED), Arthritis (ED) Departure Forms: Tests/Procedures Additional Instruction: Follow-up with your primary care physician or orthopedics in 2-3 days for reevaluation. Use [id number] Tylenol and/or appropriate as a for pain. Follow instructions on the packaging. Return to the emergency department if symptoms get worse. Disposition: 01 DISCHARGE HOME Condition: Stable Abelino Nielsen MD Apr 30, 2016 07:59
[2016-04-30] MEDS ORDERED: MORPHINE SULFATE 4 MG/ML INJ IV PUSH ONE (08:00)
[2016-04-30] MEDS ORDERED: CLINDAMYCIN INJ 600 MG in SODIUM CHLORIDE 0.9% INJ 100 ML IV ONE (08:00)
[2016-04-30] MEDS ORDERED: ONDANSETRON HCL 4 MG/2 ML VIAL IV PUSH ONE (08:00)
[2016-04-30] MEDS ORDERED: SODIUM CHLORID 0.9% 500 ML INJ 500 ML IV ONE (08:30)
[2016-04-30 08:39] LABS: BASOPHIL % 0.5 % (0.0-2.0); EOSINOPHIL # 0.6 TH/MM3 (0-0.4); EOSINOPHIL % 7.6 % (0.0-4.0); HEMATOCRIT 29.6 % (39.0-51.0); HEMO FLAGS DIFF FINAL; LYMPH % 18.2 % (9.0-44.0); LYMPHOCYTE # 1.3 TH/MM3 (1.0-4.8); MEAN CELL VOLUME 78.1 FL (80.0-100.0); MEAN CORPUSCULAR HEMOGLOBIN 25.6 PG (27.0-34.0); MEAN CORPUSCULAR HGB CONC 32.8 % (32.0-36.0); MONO % 5.4 % (0.0-8.0); NEUT % 68.3 % (16.0-70.0); PLATELET COUNT 183 TH/MM3 (150-450); RED BLOOD COUNT 3.79 MIL/MM3 (4.50-5.90); RED CELL DISTRIBUTION WIDTH 16.8 % (11.6-17.2); WHITE BLOOD COUNT 7.3 TH/MM3 (4.0-11.0)
[2016-04-30 09:00] LABS: ANION GAP 7 MEQ/L (5-15); AST (GOT) 87 U/L (15-37); BICARBONATE 21.8 MEQ/L (21.0-32.0); BLOOD UREA NITROGEN 25 MG/DL (7-18); CHLORIDE 109 MEQ/L (98-107); GLOMERULAR FILTRATION RATE 33 ML/MIN (>89); POTASSIUM 3.4 MEQ/L (3.5-5.1); SODIUM (NA) 138 MEQ/L (136-145)
[2016-04-30 09:04] LABS: ALKALINE PHOSPHATASE 70 U/L (45-117); ALT (GPT) 27 U/L (12-78); TOTAL BILIRUBIN ADULT 0.2 MG/DL (0.2-1.0)
--- NOTE | 2016-04-30 09:14 | RADRPT ---
EXAM DATE/TIME: 04/30/2016 08:32 [facility] COMPARISON: CHEST SINGLE AP, February 29, 2016, 23:58. INDICATIONS : Fall. Short of breath. MEDICAL HISTORY : None. SURGICAL HISTORY : None. ENCOUNTER: Initial ACUITY: 1 day PAIN SCORE: Non-responsive. LOCATION: Bilateral chest FINDINGS: Lungs are hypoaerated. There is paucity interstitial vascular markings without evidence of consolidat ing airspace disease or significant pulmonary edema. Heart is at the upper limits of normal size. CONCLUSION: Hypoaerated lungs otherwise no evidence of significant congestion or acute air space disease. Vaughn Porter MD on April 30, 2016 at 9:11 Board Certified Radiologist. This report was verified electronically.
--- NOTE | 2016-04-30 09:44 | RADRPT ---
EXAM DATE/TIME: 04/30/2016 08:35 [facility] COMPARISON: No previous studies available for comparison. INDICATIONS: Scrotal swelling. MEDICAL HISTORY: Hypercholesterolemia. CAD. Diabetic. SURGICAL HISTORY: Cardiac stent. ENCOUNTER: Initial ACUITY: 1 day PAIN SCORE: 7/10 LOCATION: Scrotum. MEASUREMENTS: RIGHT TESTICLE: 2.0 x 1.7 x 2.1cm LEFT TESTICLE: 2.3 x 1.5 x 1.6cm FINDINGS: There is very prominent skin thickening throughout the scrotum. Both testicles are identified. Thes e appear small. There is diminished flow within the testicles bilaterally being worse on the left. Minimal flow is seen bilaterally. There is echogenic material within the right and left dimitry-scrotum . This could be related to very prominent echogenic epididymis. Other material including hemorrhage could have this appearance. Bowel was not seen. There is a 1 cm cyst at the left extra-testicular region likely related to the epididymis. CONCLUSION: 1. Very prominent scrotal skin thickening. 2. Both testicles appear small with reduced flow although there is minimal flow seen bilaterally. 3. Echogenic material seen within the dimitry-scrotum bilaterally around the testicles likely related t o prominent epididymis and/or some degree of echogenic material within the dimitry-scrotum such as hemor rhage. Too Menezes MD on April 30, 2016 at 9:24 Board Certified Radiologist. This report was verified electronically.
[2016-04-30] MEDS ORDERED: CIPROFLOXACIN 400 MG PREMIX 200 ML IV ONE (10:00)
[2016-04-30] MEDS ORDERED: DEXTROSE 50% IN WATER 50 ML VIAL(D50) IV PUSH PRN (10:45)
[2016-04-30] MEDS ORDERED: GLUCAGON 1 MG/ML VIAL OTHER PRN (10:45)
[2016-04-30] MEDS ORDERED: SENNOSIDES 8.6 MG TAB PO PRN (11:00)
[2016-04-30] MEDS ORDERED: MORPHINE SULFATE 4 MG/ML INJ IV PRN (11:00)
[2016-04-30] MEDS ORDERED: ONDANSETRON HCL 4 MG/2 ML VIAL IVP PRN (11:00)
[2016-04-30] MEDS ORDERED: NALOXONE HCL 0.4 MG/ML AMP IV PRN (11:00)
[2016-04-30] MEDS ORDERED: ACETAMINOPHEN 325 MG TAB PO PRN ×2 (11:00)
[2016-04-30] MEDS ORDERED: BISACODYL 10 MG SUPP PR PRN (11:00)
[2016-04-30] MEDS ORDERED: SODIUM CHLORIDE 0.9% FLUSH 5 ML FLUSH FLUSH PRN (11:00)
[2016-04-30] MEDS: INSULIN ASPART SUPPLEMENTAL SCALE SQ SCH ×3 (11:00→21:00)
[2016-04-30 11:56] LABS: CKMB 28.6 NG/ML (0.5-3.6)
[2016-04-30] MEDS: DOCUSATE SODIUM 100 MG CAP PO SCH ×2 (12:14→23:25)
[2016-04-30] MEDS: HEPARIN SODIUM - SQ 10,000 UNITS/ML VIAL SQ SCH (12:14)
[2016-04-30] MEDS ORDERED: POTASSIUM CHLORIDE 20 MEQ CONTROLLED RELEASE TAB PO ONE (13:00)
[2016-04-30] MEDS: SODIUM CHLOR 0.9% 1000 ML INJ 1,000 ML IV SCH (13:44)
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
[2016-04-30] MEDS ORDERED: DIATRIZOATE MEGLUM/DIATRIZOATE SOD 9 ML CUP PO ONE (16:10)
[2016-04-30 17:38] LABS: BACTERIA, URINE MANY /hpf; BLOOD, URINE NEG (NEG); GLUCOSE,URINE NEG (NEG); KETONE, URINE NEG (NEG); NITRITE,URINE POS (NEG); PH, URINE 8.5 (5.0-8.5); SQUAMOUS EPITHELIAL CELL URINE 1 /hpf (0-5); URIC ACID CRYSTALS, URINE MOD /hpf; URINE COLOR YELLOW (YELLW/STRAW)
[2016-04-30 17:39] LABS: COMMENT (UR) CULTURE INDICATED; CULTURE IF INDICATED CULTURE INDICATED
[2016-04-30] MEDS: CLINDAMYCIN INJ 600 MG in SODIUM CHLORIDE 0.9% INJ 100 ML IV SCH ×2 (18:27→21:21)
[2016-04-30] MEDS: ACETAMINOPHEN/HYDROcodone 325 MG/10 MG TAB PO PRN (19:51)
[2016-04-30] MEDS: SODIUM CHLORIDE 0.9% FLUSH 5 ML FLUSH FLUSH SCH (21:00)
--- NOTE | 2016-04-30 22:48 | RADRPT ---
EXAM DATE/TIME: 04/30/2016 22:19 [facility] COMPARISON: No previous studies available for comparison. INDICATIONS : Rule out metastatic disease. ORAL CONTRAST: Prescribed oral contrast ingested. RADIATION DOSE: 18.42 CTDIvol (mGy) MEDICAL HISTORY : Cardiovascular disease. Cerebrovascular disease. Diabetes mellitus type 2. SURGICAL HISTORY : None. ENCOUNTER: Initial ACUITY: 1 day PAIN SCALE: 7/10 LOCATION: Bilateral flank TECHNIQUE: Volumetric scanning of the abdomen and pelvis was performed. Using automated exposure control and ad justment of the mA and/or kV according to patient size, radiation dose was kept as low as reasonably achievable to obtain optimal diagnostic quality images. FINDINGS: Coronary artery calcification is noted. Unenhanced appearance of the liver, spleen, pancreas, ad renal glands, gallbladder are unremarkable. There are 2 exophytic left mid pole renal mass is identif ied which are incompletely characterized on this study. The more posterior this measures 2.4 cm and t he more anterior mass measures one point centimeters on image 35. Urinary bladder is unremarkable. At herosclerotic calcifications of the aorta and iliac vessels are seen. There is a diverticulum of the second portion of the duodenum. No evidence of a bowel obstruction. No inflammatory changes are seen. There is gluteal muscular atrophy and body wall edema. Lung bases are clear. Review of bone windows show degenerative changes of the spine. There is a chronic deformity of both hips. CONCLUSION: 1. There are 2 left renal masses noted which are incompletely evaluated without contrast. 2. No other masses are seen Naveed Brito MD on April 30, 2016 at 22:43 Board Certified Radiologist. This report was verified electronically.
--- NOTE | 2016-04-30 22:49 | RADRPT ---
EXAM DATE/TIME: 04/30/2016 22:21 [facility] COMPARISON: US TESTICLE W/DOPPLER, April 30, 2016, 8:35. CT ABDOMEN & PELVIS W/O CONTRAST, April 30, 2016, 22:19 . INDICATIONS : Rule out metastatic disease. RADIATION DOSE: 18.43 CTDIvol (mGy) ; Combined studies - Thorax/Abdomen/Pelvis MEDICAL HISTORY : Cardiovascular disease. Cerebrovascular disease. Diabetes mellitus type 2. SURGICAL HISTORY : None. ENCOUNTER: Initial ACUITY: 1 day PAIN SCALE: 0/10 LOCATION: chest TECHNIQUE: Volumetric scanning of the chest was performed. Using automated exposure control and adjustment of t he mA and/or kV according to patient size, radiation dose was kept as low as reasonably achievable to obtain optimal diagnostic quality images. FINDINGS: There is no evidence for lung mass or consolidation. Atherosclerotic calcifications of the aorta and coronary arteries. Degenerative changes of the spine are seen. There is no lymphadenopathy. CONCLUSION: No acute disease. Naveed Brito MD on April 30, 2016 at 22:46 Board Certified Radiologist. This report was verified electronically.
[2016-04-30] MEDS: CIPROFLOXACIN 400 MG PREMIX 200 ML IV SCH (23:25)
[2016-05-01 00:02] VITALS: BP 104/61; PULSE 58; RESP 20; TEMP 97.4; O2SAT 96
[2016-05-01] MEDS: ACETAMINOPHEN/HYDROcodone 325 MG/10 MG TAB PO PRN (02:22)
[2016-05-01 03:43] VITALS: BP 91/53; PULSE 62; RESP 20; TEMP 97.6; O2SAT 98
[2016-05-01] MEDS: CLINDAMYCIN INJ 600 MG in SODIUM CHLORIDE 0.9% INJ 100 ML IV SCH ×3 (04:41→16:57)
[2016-05-01 05:33] LABS: POTASSIUM 3.7 MEQ/L (3.5-5.1)
[2016-05-01] MEDS: INSULIN ASPART SUPPLEMENTAL SCALE SQ SCH ×4 (05:50→21:00)
[2016-05-01 05:51] LABS: CKMB 13.5 NG/ML (0.5-3.6)
[2016-05-01 08:39] VITALS: BP 104/64; PULSE 53; RESP 20; TEMP 95.3; O2SAT 100
[2016-05-01] MEDS ORDERED: LEVOTHYROXINE SODIUM 25 MCG TAB PO SCH (09:00)
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
[2016-05-01 09:22] VITALS: O2SAT 99
[2016-05-01] MEDS: SODIUM CHLOR 0.9% 1000 ML INJ 1,000 ML IV SCH ×2 (10:14→12:50)
[2016-05-01] MEDS: SODIUM CHLORIDE 0.9% FLUSH 5 ML FLUSH FLUSH SCH ×2 (10:14→22:39)
[2016-05-01] MEDS: DOCUSATE SODIUM 100 MG CAP PO SCH (11:10)
[2016-05-01] MEDS: ACETAMINOPHEN/HYDROcodone 325 MG/5 MG TAB PO PRN ×2 (11:10→22:35)
[2016-05-01] MEDS: CIPROFLOXACIN 400 MG PREMIX 200 ML IV SCH ×3 (14:28→22:35)
[2016-05-01] MEDS ORDERED: LEVO50TA4 PO (14:54)
[2016-05-01] MEDS ORDERED: FURO1TAB62 PO (15:02)
[2016-05-01] MEDS ORDERED: LISI-519 PO (15:03)
[2016-05-01] MEDS ORDERED: LEVO500T3 PO (15:03)
[2016-05-01] MEDS ORDERED: B-12100T PO (15:03)
[2016-05-01] MEDS ORDERED: CICL0.773 TOPICAL (15:03)
[2016-05-01] MEDS ORDERED: CARV6.25 PO (15:03)
[2016-05-01] MEDS ORDERED: ASPI81TA5 PO (15:03)
[2016-05-01] MEDS ORDERED: FERR325T PO (15:03)
[2016-05-01] MEDS ORDERED: MULT-135 PO (15:04)
[2016-05-01 15:44] VITALS: BP 86/54; PULSE 57; RESP 18; TEMP 97.3; O2SAT 95
[2016-05-01 15:48] VITALS: BP 95/56; PULSE 57; RESP 18; TEMP 97.8
--- NOTE | 2016-05-01 19:16 | MB ---
cc: PÉREZ CONCEPCION MD DATE OF CONSULTATION 05/01/[address] Michael Mack REASON FOR CONSULTATION Skin cancer of left lower extremity. HISTORY OF PRESENT ILLNESS The patient is a 61-year-old male with multiple medical problems. The patient is wheelchair-bound. He does have a history of hypertension, hypothyroidism, diabetes, coronary artery disease, etc. The patient came into the emergency room after falling out of his wheelchair. He was also admitted with a diagnosis of scrotal cellulitis. During the workup, it was noted that the patient has a skin cancer of his left knee which recently was biopsied. According to the patient, it is a basal cell carcinoma. The consultation is requested regarding evaluation and treatment of this chronic basal cell carcinoma of his left lower extremity. PAST MEDICAL HISTORY As noted above. 1. History of hypertension 2. Hyperlipidemia, 3. Hypothyroidism, 4. Osteoarthritis, 5. Diabetes mellitus, 6. Coronary artery disease. 7. Chronic hip pain. PAST SURGICAL HISTORY Cardiac catheterization with a stent placed 2013 MEDICATIONS Listed on the chart. ALLERGIES No known allergies. FAMILY HISTORY Noncontributory. SOCIAL HISTORY The patient denies any alcohol, tobacco or drug use. PHYSICAL EXAMINATION GENERAL: The patient is sitting comfortably in the chair. VITAL SIGNS: Temperature is 97.3, pulse 57, respirations 18, blood pressure is 86/54 and his pulse oximetry is 95 on room air. HEENT: His extraocular muscles are intact. His pupils equal round and reactive to light. LUNGS: Clear. HEART: Regular rate and rhythm. EXTREMITIES: Examination of his left lower extremity reveals some induration around an ulcer measuring approximately 6 x 7 cm in greatest dimension. There is no evidence of cellulitis. It is not bleeding. IMPRESSION The patient appears to have a chronic cancer of the lateral aspect of his left lower extremity. PLAN The patient is advised that he can follow up in our office where we can plan surgical reconstruction of his skin cancer. An oncologic workup in order to evaluate for metastasis is in order. MD MARLEN Maston/ /5:19 PM /6:56 PM
[2016-05-01] MEDS: FERROUS SULFATE 325 MG (65 MG ELEMENTAL IRON) TAB PO SCH (19:24)
[2016-05-01] MEDS: ASPIRIN EC 81 MG TABEC PO SCH (22:35)
[2016-05-01] MEDS: CARVEDILOL 6.25 MG TAB PO SCH (22:35)
[2016-05-02] VITALS (7 sets, daily range): BP systolic 82–109; BP diastolic 44–74; PULSE 55–64; RESP 17–22; TEMP 95.8–98; O2SAT 90–97
[2016-05-02] MEDS: CLINDAMYCIN INJ 600 MG in SODIUM CHLORIDE 0.9% INJ 100 ML IV SCH ×5 (00:45→21:28)
[2016-05-02] MEDS: DOCUSATE SODIUM 100 MG CAP PO SCH ×2 (00:45→13:39)
[2016-05-02] MEDS: CIPROFLOXACIN 400 MG PREMIX 200 ML IV SCH (05:34)
[2016-05-02] MEDS: LEVOTHYROXINE SODIUM 50 MCG TAB PO SCH (05:34)
[2016-05-02] MEDS: INSULIN ASPART SUPPLEMENTAL SCALE SQ SCH ×4 (05:54→21:00)
[2016-05-02 07:07] LABS: BASOPHIL % 0.6 % (0.0-2.0); EOSINOPHIL # 0.6 TH/MM3 (0-0.4); EOSINOPHIL % 10.3 % (0.0-4.0); HEMATOCRIT 27.4 % (39.0-51.0); LYMPH % 29.8 % (9.0-44.0); LYMPHOCYTE # 1.7 TH/MM3 (1.0-4.8); MEAN CELL VOLUME 79.1 FL (80.0-100.0); MEAN CORPUSCULAR HEMOGLOBIN 24.8 PG (27.0-34.0); MEAN CORPUSCULAR HGB CONC 31.3 % (32.0-36.0); MONO % 7.3 % (0.0-8.0); PLATELET COUNT 155 TH/MM3 (150-450); RED BLOOD COUNT 3.46 MIL/MM3 (4.50-5.90); RED CELL DISTRIBUTION WIDTH 17.1 % (11.6-17.2); WHITE BLOOD COUNT 5.8 TH/MM3 (4.0-11.0)
[2016-05-02 07:11] LABS: HEMO FLAGS AUTO DIFF
[2016-05-02 07:28] LABS: BICARBONATE 23.1 MEQ/L (21.0-32.0); MAGNESIUM 1.9 MG/DL (1.5-2.5); POTASSIUM 4.5 MEQ/L (3.5-5.1)
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
[2016-05-02 08:26] LABS: KERATOCYTES OCC (NORMAL); OVALOCYTES 1+ (NORMAL); SCAN/DIFF AUTO DIFF CONFIRMED
[2016-05-02] MEDS: SODIUM CHLOR 0.9% 1000 ML INJ 1,000 ML IV SCH ×2 (10:01→13:40)
[2016-05-02] MEDS: SODIUM CHLORIDE 0.9% FLUSH 5 ML FLUSH FLUSH SCH ×2 (10:02→21:25)
[2016-05-02] MEDS: CARVEDILOL 6.25 MG TAB PO SCH ×2 (10:02→21:00)
[2016-05-02] MEDS: ASPIRIN EC 81 MG TABEC PO SCH ×2 (10:02→21:26)
[2016-05-02] MEDS: FERROUS SULFATE 325 MG (65 MG ELEMENTAL IRON) TAB PO SCH ×3 (10:02→16:45)
[2016-05-02] MEDS: CIPROFLOXACIN 500 MG TAB PO SCH ×2 (10:27→21:25)
[2016-05-02] MEDS: ACETAMINOPHEN/HYDROcodone 325 MG/10 MG TAB PO PRN (15:03)
[2016-05-02] MEDS: cefTRIAXone INJ 1,000 MG in SODIUM CHLORIDE 0.9% INJ 100 ML IV SCH (16:45)
[2016-05-02] MEDS: HEPARIN SODIUM - SQ 10,000 UNITS/ML VIAL SQ SCH (23:20)
[2016-05-03] VITALS: BP 131/70; PULSE 67; RESP 17; TEMP 96.4; O2SAT 97
[2016-05-03] MEDS: SODIUM CHLOR 0.9% 1000 ML INJ 1,000 ML IV SCH ×2 (00:35→11:45)
[2016-05-03] MEDS: ACETAMINOPHEN/HYDROcodone 325 MG/10 MG TAB PO PRN ×3 (00:46→22:30)
[2016-05-03] MEDS: DOCUSATE SODIUM 100 MG CAP PO SCH ×2 (00:46→11:32)
[2016-05-03] MEDS: CLINDAMYCIN INJ 600 MG in SODIUM CHLORIDE 0.9% INJ 100 ML IV SCH ×2 (04:38→10:14)
[2016-05-03] MEDS: LEVOTHYROXINE SODIUM 50 MCG TAB PO SCH (05:53)
[2016-05-03] MEDS: INSULIN ASPART SUPPLEMENTAL SCALE SQ SCH ×4 (05:53→21:00)
[2016-05-03 08:00] VITALS: BP 103/61; PULSE 60; RESP 14; TEMP 96.7; O2SAT 95
[2016-05-03] MEDS: CARVEDILOL 6.25 MG TAB PO SCH (09:00)
[2016-05-03] MEDS: SODIUM CHLORIDE 0.9% FLUSH 5 ML FLUSH FLUSH SCH ×2 (09:00→21:00)
[2016-05-03] MEDS: ASPIRIN EC 81 MG TABEC PO SCH ×2 (10:13→22:30)
[2016-05-03] MEDS: FERROUS SULFATE 325 MG (65 MG ELEMENTAL IRON) TAB PO SCH ×3 (10:14→18:02)
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
[2016-05-03] MEDS: HEPARIN SODIUM - SQ 10,000 UNITS/ML VIAL SQ SCH ×2 (11:32→22:30)
[2016-05-03 12:00] VITALS: BP 118/69; PULSE 63; RESP 16; TEMP 95.5; O2SAT 97
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
[2016-05-03 16:00] VITALS: BP 122/70; PULSE 66; RESP 18; TEMP 97.1; O2SAT 97
[2016-05-03] MEDS ORDERED: VANCOMYCIN INJ 1,000 MG in SODIUM CHLOR 0.9% 250 ML INJ 250 ML IV ONE (16:00)
[2016-05-03] MEDS: cefTRIAXone INJ 1,000 MG in SODIUM CHLORIDE 0.9% INJ 100 ML IV SCH (18:02)
[2016-05-03 20:29] VITALS: BP 127/66; PULSE 88; RESP 17; TEMP 96.5; O2SAT 93
[2016-05-03] MEDS: CARVEDILOL 3.125 MG TAB PO SCH (22:30)
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
[2016-05-04 00:07] VITALS: BP 105/62; PULSE 62; RESP 18; TEMP 96.8; O2SAT 97
[2016-05-04] MEDS: DOCUSATE SODIUM 100 MG CAP PO SCH ×3 (00:15→22:51)
[2016-05-04] MEDS: SODIUM CHLOR 0.9% 1000 ML INJ 1,000 ML IV SCH ×3 (00:25→22:51)
[2016-05-04 05:44] LABS: AUTOMATED NEUTROPHIL # 3.7 TH/MM3 (1.8-7.7); BASOPHIL % 0.5 % (0.0-2.0); EOSINOPHIL # 0.6 TH/MM3 (0-0.4); EOSINOPHIL % 8.5 % (0.0-4.0); HEMATOCRIT 25.9 % (39.0-51.0); HEMO FLAGS DIFF FINAL; LYMPH % 27.3 % (9.0-44.0); LYMPHOCYTE # 1.8 TH/MM3 (1.0-4.8); MEAN CELL VOLUME 78.9 FL (80.0-100.0); MEAN CORPUSCULAR HEMOGLOBIN 25.5 PG (27.0-34.0); MEAN CORPUSCULAR HGB CONC 32.3 % (32.0-36.0); MONO % 7.3 % (0.0-8.0); NEUT % 56.4 % (16.0-70.0); PLATELET COUNT 141 TH/MM3 (150-450); RED BLOOD COUNT 3.29 MIL/MM3 (4.50-5.90); RED CELL DISTRIBUTION WIDTH 16.6 % (11.6-17.2); WHITE BLOOD COUNT 6.5 TH/MM3 (4.0-11.0)
[2016-05-04] MEDS: LEVOTHYROXINE SODIUM 50 MCG TAB PO SCH (05:58)
[2016-05-04] MEDS: ACETAMINOPHEN/HYDROcodone 325 MG/10 MG TAB PO PRN ×2 (05:58→22:50)
[2016-05-04 06:28] LABS: BICARBONATE 23.2 MEQ/L (21.0-32.0); POTASSIUM 4.4 MEQ/L (3.5-5.1)
[2016-05-04] MEDS: INSULIN ASPART SUPPLEMENTAL SCALE SQ SCH ×4 (07:00→21:00)
[2016-05-04 08:00] VITALS: BP 100/57; PULSE 54; RESP 16; TEMP 96.2; O2SAT 94
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
[2016-05-04] MEDS: CARVEDILOL 3.125 MG TAB PO SCH ×2 (09:00→21:45)
[2016-05-04] MEDS: SODIUM CHLORIDE 0.9% FLUSH 5 ML FLUSH FLUSH SCH ×2 (09:00→21:00)
[2016-05-04] MEDS: ASPIRIN EC 81 MG TABEC PO SCH ×2 (09:51→21:45)
[2016-05-04] MEDS: FERROUS SULFATE 325 MG (65 MG ELEMENTAL IRON) TAB PO SCH ×3 (09:51→18:09)
[2016-05-04 12:00] VITALS: BP 112/55; PULSE 64; RESP 14; TEMP 96.2; O2SAT 96
[2016-05-04] MEDS ORDERED: VANCOMYCIN INJ 1,000 MG in SODIUM CHLOR 0.9% 250 ML INJ 250 ML IV ONE (12:15)
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
[2016-05-04] MEDS: HEPARIN SODIUM - SQ 10,000 UNITS/ML VIAL SQ SCH ×2 (12:39→22:51)
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
[2016-05-04 16:00] VITALS: BP 110/61; PULSE 61; RESP 16; TEMP 96.2; O2SAT 97
[2016-05-04] MEDS: cefTRIAXone INJ 1,000 MG in SODIUM CHLORIDE 0.9% INJ 100 ML IV SCH (16:15)
[2016-05-04 20:15] VITALS: BP 146/73; PULSE 69; RESP 18; TEMP 96.3; O2SAT 95
[2016-05-05 00:14] VITALS: BP 114/62; PULSE 62; RESP 20; TEMP 96.6; O2SAT 95
[2016-05-05] MEDS: LEVOTHYROXINE SODIUM 50 MCG TAB PO SCH (06:15)
[2016-05-05] MEDS: ACETAMINOPHEN/HYDROcodone 325 MG/10 MG TAB PO PRN ×3 (06:15→18:17)
[2016-05-05] MEDS: INSULIN ASPART SUPPLEMENTAL SCALE SQ SCH ×4 (06:18→20:35)
[2016-05-05] MEDS: SODIUM CHLORIDE 0.9% FLUSH 5 ML FLUSH FLUSH SCH ×2 (07:49→20:35)
[2016-05-05 08:00] VITALS: BP 98/61; PULSE 55; RESP 16; TEMP 96.3; O2SAT 98
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
[2016-05-05] MEDS: FERROUS SULFATE 325 MG (65 MG ELEMENTAL IRON) TAB PO SCH ×3 (09:33→18:16)
[2016-05-05] MEDS: ASPIRIN EC 81 MG TABEC PO SCH ×2 (09:33→20:35)
[2016-05-05] MEDS: DOCUSATE SODIUM 100 MG CAP PO SCH ×2 (11:31→22:23)
[2016-05-05] MEDS: HEPARIN SODIUM - SQ 10,000 UNITS/ML VIAL SQ SCH ×2 (11:31→22:23)
[2016-05-05 12:00] VITALS: BP 111/64; PULSE 60; RESP 16; TEMP 96.2; O2SAT 96
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
[2016-05-05] MEDS ORDERED: VANCOMYCIN INJ 1,000 MG in SODIUM CHLOR 0.9% 250 ML INJ 250 ML IV ONE (14:00)
[2016-05-05] MEDS ORDERED: Vancomycin Consult Pharmacy 1 EA OTHER SCH (14:00)
[2016-05-05] MEDS ORDERED: VANCOMYCIN INJ 2,000 MG in SODIUM CHLORID 0.9% 500 ML INJ 500 ML IV ONE (15:00)
[2016-05-05 16:00] VITALS: BP 105/59; PULSE 60; RESP 16; TEMP 96.2; O2SAT 98
[2016-05-05] MEDS: cefTRIAXone INJ 1,000 MG in SODIUM CHLORIDE 0.9% INJ 100 ML IV SCH (18:16)
[2016-05-05 20:00] VITALS: BP 114/62; PULSE 67; RESP 17; TEMP 97.2; O2SAT 94
[2016-05-06] VITALS: BP 110/62; PULSE 64; RESP 17; TEMP 97; O2SAT 95
[2016-05-06] MEDS: LEVOTHYROXINE SODIUM 50 MCG TAB PO SCH (04:52)
[2016-05-06] MEDS: ACETAMINOPHEN/HYDROcodone 325 MG/10 MG TAB PO PRN (05:16)
[2016-05-06] MEDS: INSULIN ASPART SUPPLEMENTAL SCALE SQ SCH ×4 (06:11→21:00)
[2016-05-06 08:00] VITALS: BP 100/56; PULSE 60; RESP 17; TEMP 96.7; O2SAT 94
[2016-05-06] MEDS: ASPIRIN EC 81 MG TABEC PO SCH ×2 (08:41→22:02)
[2016-05-06] MEDS: FERROUS SULFATE 325 MG (65 MG ELEMENTAL IRON) TAB PO SCH ×3 (08:41→17:06)
[2016-05-06] MEDS: SODIUM CHLORIDE 0.9% FLUSH 5 ML FLUSH FLUSH SCH ×2 (08:41→22:02)
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
[2016-05-06 12:00] VITALS: BP 105/57; PULSE 61; RESP 17; TEMP 97; O2SAT 96
[2016-05-06] MEDS: HEPARIN SODIUM - SQ 10,000 UNITS/ML VIAL SQ SCH ×2 (12:02→22:03)
[2016-05-06] MEDS: DOCUSATE SODIUM 100 MG CAP PO SCH ×2 (12:02→22:03)
[2016-05-06] MEDS: AMOXICILLIN/CLAVULANATE K 500 MG TAB PO SCH ×2 (14:49→22:03)
[2016-05-06 16:00] VITALS: BP 116/64; PULSE 60; RESP 16; TEMP 96.2; O2SAT 93
[2016-05-06 20:00] VITALS: BP 116/72; PULSE 66; RESP 19; TEMP 96.3; O2SAT 96
[2016-05-07] VITALS: BP 105/66; PULSE 63; RESP 18; TEMP 97.6; O2SAT 96
[2016-05-07] MEDS: ACETAMINOPHEN/HYDROcodone 325 MG/10 MG TAB PO PRN ×2 (02:46→22:25)
[2016-05-07] MEDS: AMOXICILLIN/CLAVULANATE K 500 MG TAB PO SCH ×3 (05:12→22:24)
[2016-05-07] MEDS: LEVOTHYROXINE SODIUM 50 MCG TAB PO SCH (05:12)
[2016-05-07] MEDS: INSULIN ASPART SUPPLEMENTAL SCALE SQ SCH ×4 (06:33→21:00)
[2016-05-07 08:00] VITALS: BP 96/55; PULSE 57; RESP 18; TEMP 96; O2SAT 95
[2016-05-07] MEDS: ASPIRIN EC 81 MG TABEC PO SCH ×2 (08:26→22:24)
[2016-05-07] MEDS: FERROUS SULFATE 325 MG (65 MG ELEMENTAL IRON) TAB PO SCH ×3 (08:26→16:45)
[2016-05-07] MEDS: SODIUM CHLORIDE 0.9% FLUSH 5 ML FLUSH FLUSH SCH ×2 (09:00→21:00)
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
[2016-05-07 12:00] VITALS: BP 107/63; PULSE 65; RESP 19; TEMP 96.9; O2SAT 95
[2016-05-07] MEDS ORDERED: VANCOMYCIN INJ 2,000 MG in SODIUM CHLORID 0.9% 500 ML INJ 500 ML IV SCH (12:00)
[2016-05-07] MEDS: HEPARIN SODIUM - SQ 10,000 UNITS/ML VIAL SQ SCH ×2 (12:23→22:28)
[2016-05-07] MEDS: DOCUSATE SODIUM 100 MG CAP PO SCH ×2 (12:24→22:28)
[2016-05-07 16:00] VITALS: BP 105/68; PULSE 59; RESP 19; TEMP 98.2; O2SAT 97
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
[2016-05-07 20:00] VITALS: BP 114/58; PULSE 61; RESP 20; TEMP 96.4; O2SAT 94
[2016-05-08] VITALS: BP 98/54; PULSE 61; RESP 20; TEMP 96.8; O2SAT 94
[2016-05-08] MEDS: LEVOTHYROXINE SODIUM 50 MCG TAB PO SCH (05:44)
[2016-05-08] MEDS: ACETAMINOPHEN/HYDROcodone 325 MG/10 MG TAB PO PRN ×2 (05:44→12:41)
[2016-05-08] MEDS: AMOXICILLIN/CLAVULANATE K 500 MG TAB PO SCH ×2 (05:44→12:42)
[2016-05-08] MEDS: INSULIN ASPART SUPPLEMENTAL SCALE SQ SCH ×2 (05:45→11:00)
[2016-05-08 08:00] VITALS: BP 108/57; PULSE 62; RESP 19; TEMP 97.5; O2SAT 94
[2016-05-08] MEDS: SODIUM CHLORIDE 0.9% FLUSH 5 ML FLUSH FLUSH SCH (09:05)
[2016-05-08] MEDS: ASPIRIN EC 81 MG TABEC PO SCH (09:05)
[2016-05-08] MEDS: FERROUS SULFATE 325 MG (65 MG ELEMENTAL IRON) TAB PO SCH ×2 (09:05→12:42)
[2016-05-08 12:00] VITALS: BP 106/55; PULSE 58; RESP 18; TEMP 96.6; O2SAT 95
[2016-05-08] MEDS: HEPARIN SODIUM - SQ 10,000 UNITS/ML VIAL SQ SCH (12:42)
[2016-05-08] MEDS: DOCUSATE SODIUM 100 MG CAP PO SCH (12:42)
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
[2016-05-08] MEDS ORDERED: TYLETAB34 PO (13:14)
[2016-05-08] MEDS ORDERED: AUGM500T7 PO (13:14)
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
[2016-05-08] MEDS ORDERED: VANCOMYCIN INJ 1,000 MG in SODIUM CHLOR 0.9% 250 ML INJ 250 ML IV ONE (15:00)
[2016-05-11] MEDS ORDERED: PHARMACY ORDERED LAB XX ONE (11:45)
--- NOTE | 2016-05-18 09:44 | PQ ---
Physician Query Response Document PATIENT: LANIE GATES : 1955 ADMIT DATE: 05/01/2016 4:20 PM DISCH DATE: 05/08/2016 5:14 PM RESPONDING PROVIDER #: ayaka QUERY TEXT: Kidney Disease, Chronic CKD Stage Chronic Kidney Disease (CKD) is documented in the Medical Record. Please specify the disease stage ( includes probable or suspected) Such as: -- Chronic kidney disease Stage 1 -- Chronic kidney disease Stage 2 -- Chronic kidney disease Stage 3 -- Chronic kidney disease Stage 4 -- Chronic kidney disease Stage 5 -- Chronic kidney disease Stage 5, requiring dialysis -- End Stage Renal Disease -- Other, please specify Stages are defined by the National Kid[employer] as follows: CKD Stage I GFR >= 90 ml / min per 1.73 m2 and persistent albuminuria CKD Stage 2 GFR between 60 and 89 with persistent albuminuria CKD Stage 3 GFR between 30 and 59 CKD Stage 4 GFR between 15 and 29 CKD Stage 5 GFR between <15 or End Stage Renal Disease The patient's Clinical Indicators include: Progress noted dated 05/07/16 : Chronic kidney disease: Creatinine 2.03, previously 1.92 on 03/15/16. Held home Lasix and lisinopril for now with rhabdomyolysis as above. Monitor renal function. Stable . 04/30/16: BUN 25, Creatinine 2.03, GFR 33 05/01/16: BUN 20, Creatinine 1.71, GFR 41 05/02/16: BUN 28, Creatinine 2.00, GFR 34 05/04/16: BUN 31, Creatinine 1.82, GFR 38 05/06/16: BUN __, Creatinine 1.74, GFR 40 Query created by: Divine Spear on 05/07/2016 3:28 PM RESPONSE TEXT: CKD St. [address] Electronically signed by: Héctor Ba MD 05/18/2016 9:40 AM
== END 2016-05-08 17:14 | DRG 728 ==
LOC: NEPB 01:19 → NEDA 10:46 → NEPFCDU 17:58 → OBSVTOIN 05-01 16:20 → N07A 05-03 00:15
PROVIDERS: ADMIT Hospitalist; ATTEND Hospitalist
DX: N49.2 Inflammatory disorders of scrotum (principal); N17.9 Acute kidney failure, unspecified; M62.82 Rhabdomyolysis; L97.829 Non-pressure chronic ulcer of other part of left lower leg with unspecified severity; N39.0 Urinary tract infection, site not specified; Q60.0 Renal agenesis, unilateral; Z68.42 Body mass index [BMI] 45.0-49.9, adult; E88.09 Other disorders of plasma-protein metabolism, not elsewhere classified; E03.9 Hypothyroidism, unspecified; I25.10 Atherosclerotic heart disease of native coronary artery without angina pectoris; C44.719 Basal cell carcinoma of skin of left lower limb, including hip; E66.01 Morbid (severe) obesity due to excess calories; N28.1 Cyst of kidney, acquired; G89.29 Other chronic pain; Z66 Do not resuscitate; M25.561 Pain in right knee; M25.551 Pain in right hip; D50.9 Iron deficiency anemia, unspecified; I12.9 Hypertensive chronic kidney disease with stage 1 through stage 4 chronic kidney disease, or unspecified chronic kidney disease; N18.9 Chronic kidney disease, unspecified; M19.90 Unspecified osteoarthritis, unspecified site; B96.4 Proteus (mirabilis) (morganii) as the cause of diseases classified elsewhere; Z95.5 Presence of coronary angioplasty implant and graft; Z59.0 Homelessness; Z99.3 Dependence on wheelchair
CPT/HCPCS: 71010; 71250; 73030; 73502; 73564; 74176; 76775; 76870; 76937; 80048; 80053; 80202; 81001; 82550; 82552; 82565; 82948; 83605; 83735; 85025; 87040; 87077; 87086; 87186; 87205; 93975; 96365; G0378; J0696; J0744; J1644; J1815; J3370; J7030; J7040; J7050; Q9963

== ENCOUNTER 2016-08-02 00:45 | Observation (INO) | payer OTHER ==
[~2016-08-02] VITALS: Ht 167.6 cm; Wt 120.0 kg
[~2016-08-02 00:45] MED LIST changes: +ASPI81TA5 PO; +AUGM500T7 PO; +B-12100T PO; +CARV6.25 PO; +CICL0.773 TOPICAL; +FERR325T PO; +LEVO50TA4 PO; +LISI-519 PO; +MULT-135 PO; -SYNT25TA PO
[2016-08-02 00:51] VITALS: BP 125/76; PULSE 78; RESP 20; TEMP 98; O2SAT 100
--- NOTE | 2016-08-02 00:59 | HHI.FF ---
Face to Face Verification Diagnosis: (1) Pedal edema (2) Chronic left hip pain (3) Right hip pain (4) Decubitus ulcer of knee Home Health Nursing Order: Medical education Signs/symptoms of disease process Wound care and dressing changes Nursing assessment with vital signs Home Health Aide Order: To Assist In: Bathing and personal care I have seen patient Danial Wood on 08/02/16. My clinical findings support the need for the requested home health care services because: Ltd mobility - disease progression Deconditioned w/ increased weakness Med compliance is questionable Limited ability to care for self High risk of falls I certify that my clinical findings support that this patient is homebound because: Unsteady gait/balance Celina Cool MD Aug 02, 2016 00:59
[2016-08-02] MEDS ORDERED: LEVO.15 PO (01:00)
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
--- NOTE | 2016-08-02 01:53 | RADRPT ---
EXAM DATE/TIME: 08/02/2016 00:56 [facility] COMPARISON: No previous studies available for comparison. INDICATIONS : Bilateral ankle pain from falling out of a wheelchair. MEDICAL HISTORY : Hypercholesterolemia. Hypothyroidism. Arthritis. CAD CVA Diabetes MSRA SURGICAL HISTORY : Coronary artery stent. ENCOUNTER: Initial ACUITY: 1 day PAIN SCORE: 10/10 LOCATION: Right Ankle FINDINGS: There is at least partial fusion across the talus and calcaneus. No acute fracture or dislocation. So ft tissue swelling at the ankle. CONCLUSION: 1. Soft tissue swelling at ankle. No acute bony abnormality. Edouard Gomez MD on August 02, 2016 at 1:50 Board Certified Radiologist. This report was verified electronically.
--- NOTE | 2016-08-02 01:56 | RADRPT ---
EXAM DATE/TIME: 08/02/2016 01:01 [facility] COMPARISON: No previous studies available for comparison. INDICATIONS : Bilateral ankle pain from falling out of a wheelchair. MEDICAL HISTORY : Hypercholesterolemia. Hypothyroidism. Arthritis. CAD CVA Diabetes MRSA SURGICAL HISTORY : Coronary artery stent. ENCOUNTER: Initial ACUITY: 1 day PAIN SCORE: 10/10 LOCATION: Left ankle FINDINGS: Three view exam was performed of the left ankle. The bony structures are in normal alignment. No ev idence of fracture, dislocation. The ankle mortise is intact. No radiopaque foreign bodies are seen. Bony mineralization is normal. CONCLUSION: 1. Soft tissue swelling at the ankle. No acute bony abnormality. Edouard Gomez MD on August 02, 2016 at 1:52 Board Certified Radiologist. This report was verified electronically.
[2016-08-02 02:00] VITALS: BP 128/65; PULSE 75; RESP 18; O2SAT 98
[2016-08-02] MEDS ORDERED: ACETAMINOPHEN 325 MG TAB PO PRN (03:00)
[2016-08-02] MEDS ORDERED: BISACODYL 10 MG SUPP RECTAL PRN (03:00)
[2016-08-02] MEDS ORDERED: SENNOSIDES 8.6 MG TAB PO PRN (03:00)
[2016-08-02] MEDS ORDERED: ACETAMINOPHEN/HYDROcodone 325 MG/7.5 MG TAB PO PRN (03:00)
[2016-08-02] MEDS ORDERED: LACTULOSE SYRUP 20 GM/30 ML CUP PO PRN (03:00)
[2016-08-02] MEDS ORDERED: MAGNESIUM HYDROXIDE SUSP 30 ML CUP PO PRN (03:00)
[2016-08-02] MEDS ORDERED: SODIUM CHLORIDE 0.9% FLUSH 10 ML FLUSH IV FLUSH PRN (03:00)
[2016-08-02] MEDS ORDERED: ONDANSETRON HCL 4 MG/2 ML VIAL IVP PRN (03:00)
[2016-08-02] MEDS: SODIUM CHLOR 0.9% 1000 ML INJ 1,000 ML IV SCH ×3 (03:21→20:27)
[2016-08-02 03:25] LABS: AUTOMATED NEUTROPHIL # 6.9 TH/MM3 (1.8-7.7); BASOPHIL # 0.1 TH/MM3 (0-0.2); BASOPHIL % 0.7 % (0.0-2.0); EOSINOPHIL # 0.9 TH/MM3 (0-0.4); EOSINOPHIL % 8.6 % (0.0-4.0); HEMATOCRIT 35.5 % (39.0-51.0); HEMO FLAGS DIFF FINAL; LYMPH % 16.3 % (9.0-44.0); LYMPHOCYTE # 1.7 TH/MM3 (1.0-4.8); MEAN CELL VOLUME 80.3 FL (80.0-100.0); MEAN CORPUSCULAR HEMOGLOBIN 26.3 PG (27.0-34.0); MEAN CORPUSCULAR HGB CONC 32.8 % (32.0-36.0); MONO % 8.2 % (0.0-8.0); NEUT % 66.2 % (16.0-70.0); PLATELET COUNT 223 TH/MM3 (150-450); RED BLOOD COUNT 4.43 MIL/MM3 (4.50-5.90); RED CELL DISTRIBUTION WIDTH 15.4 % (11.6-17.2); WHITE BLOOD COUNT 10.5 TH/MM3 (4.0-11.0)
--- NOTE | 2016-08-02 03:37 | HHI.HP ---
[facility] Service [facility] Primary Care Physician Gayla Pizano MD Admission Diagnosis FTT, bilat ankle pain Diagnoses: (1) Fall Diagnosis: Principal (2) Bilateral ankle pain Diagnosis: Principal (3) Total self-care deficit Diagnosis: Principal Travel History International Travel<30 Days: No Contact w/Intl Traveler <30 Da: No Traveled to Known Affected Are: No History of Present Illness This is a 61-year-old Homeless with a PMH of HTN, CAD, Hyperlipidemia and Wheelchair Bound was brought to the ER by EMS secondary to complaints of bilateral ankle pain after fall from wheelchair. Per patient, he was attempting to transfer when he had sudden fall. No head trauma or LOC reported. Per EMS, patient's clothes and socks were soaked in urine and house was unkempt. Pt initially reported living w/ friend, however unable to provide address or phone for possible HHC. Asked to admit for placement. Pt without complaints at this time. Vitals stable. Review of Systems Except as stated in HPI: all other systems reviewed are Neg ROS: 14 point review of systems otherwise negative. Past Family Social History Past Medical History PMH: HTN, CAD, Hyperlipidemia and Wheelchair Bound Past Surgical History PAST SURGICAL HISTORY: Cardiac Stent, Right Foot Surgery Allergies: Coded Allergies: *MDRO Multi-Drug Resistant Organism (Verified Adverse Reaction, Unknown, ) 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 Family History PAST FAMILY HISTORY: Reviewed. No h/o DM or CAD Social History PAST SOCIAL HISTORY: Negative for alcohol, tobacco or drugs. Physical Exam Vital Signs Vital Signs Date Time Temp Pulse Resp B/P Pulse Ox O2 Delivery O2 Flow Rate FiO2 08/02/16 00:51 98.0 78 20 125/76 100 Physical Exam PE: GENERAL: Middle-aged white male in no acute distress, disheveled, unkept. HEENT: PERRLA, EOMI. No scleral icterus or conjunctival pallor. No lid lag or facial droop. CARDIOVASCULAR: Regular rate and rhythm. No obvious murmurs to auscultation. No chest tenderness to palpation. RESPIRATORY: No obvious rhonchi or wheezing. Clear to auscultation. Breath sounds equal bilaterally. GASTROINTESTINAL: Abdomen soft, non-tender, nondistended. BS normal. MUSCULOSKELETAL: Extremities without clubbing, cyanosis, or edema. No obvious deformities. Bilateral ankle tenderness to palpation, no deformity noted. NEUROLOGICAL: Awake, alert and oriented x4. No focal neurologic deficits. Moving both upper and lower extremities spontaneously. Assessment and Plan Problem List: (1) Fall ICD Code: W19.XXXA Status: Acute (2) Bilateral ankle pain ICD Code: M25.571 Status: Acute (3) Total self-care deficit ICD Code: R41.89 Status: Acute Assessment and Plan A/P: 1. Fall: s/p mechanical fall from wheelchair, denies LOC or head trauma. No injuries sustained. 2. Bilateral Ankle Pain: secondary to fall, no obvious deformity noted, Ankle X-ray w/ soft tissue swelling, no acute bony injury, images reviewed by me. Analgesics as needed. 3. Total Self-Care Deficit: Pt found by EMS to be living in horrid conditions , reports living w/ friend but unable to provide address/phone for possible HHC. Clothes/socks soaked in urine. Pt unable to care for self, unsafe discharge home. Will admit for Observation, check labs, PT for eval/tx, Case Management consult placed by ER physician. 4. DVT Prophylaxis: Mechanical contraindication secondary to lower extremity wounds/edema. Will await labs prior to initiating pharmacologic prophylaxis. 5. Social work for d/c planning as needed. 6. Case discussed w/ ER physician at length Problem Qualifiers (1) Bilateral ankle pain: Qualified Code: M25.571 - Acute bilateral ankle pain Vanda Lei MD Aug 02, 2016 03:37
[2016-08-02 03:51] LABS: ALKALINE PHOSPHATASE 62 U/L (45-117); TOTAL BILIRUBIN ADULT 0.3 MG/DL (0.2-1.0)
[2016-08-02 04:20] LABS: ALT (GPT) 24 U/L (12-78); ANION GAP 7 MEQ/L (5-15); AST (GOT) 31 U/L (15-37); BICARBONATE 22.6 MEQ/L (21.0-32.0); BLOOD UREA NITROGEN 37 MG/DL (7-18); CHLORIDE 111 MEQ/L (98-107); GLOMERULAR FILTRATION RATE 35 ML/MIN (>89); POTASSIUM 4.2 MEQ/L (3.5-5.1); SODIUM (NA) 141 MEQ/L (136-145)
[2016-08-02 04:38] VITALS: BP 144/82; PULSE 69; RESP 18; TEMP 98.4; O2SAT 98
[2016-08-02] MEDS: DOCUSATE SODIUM 50 MG/SENNA 8.6 MG TAB PO SCH ×3 (09:00→20:26)
[2016-08-02] MEDS: SODIUM CHLORIDE 0.9% FLUSH 10 ML FLUSH IV FLUSH SCH ×2 (09:00→20:26)
[2016-08-02] MEDS: ASPIRIN EC 81 MG TABEC PO SCH ×2 (10:10→20:26)
[2016-08-02] MEDS: CARVEDILOL 6.25 MG TAB PO SCH ×2 (10:10→20:26)
[2016-08-02] MEDS: FUROSEMIDE 20 MG TAB PO SCH (10:10)
[2016-08-02 10:28] VITALS: BP 140/62; PULSE 68; RESP 20; TEMP 98; O2SAT 96
--- NOTE | 2016-08-02 10:52 | HHI.PR ---
Subjective Remarks Follow-up for fall and failure to thrive. RN at bedside. The patient has no specific complaints today. He had a mechanical fall out of his wheelchair after he tried to reach down and pick something up. He does have bilateral ankle pain from a fall which he rates as an 8/10 in severity. He states the Tylenol No. 3 has helped him with pain in the past. He does have some skin tears of his lower extremities from the fall. The patient was recently discharged from [facility] about 10 days ago. He has been staying with a friend in [place]. He has been getting home health care there. He does state that his living situation was temporary, he is not sure he can return to living with his friend. The patient is wheelchair-bound at baseline due to severe osteoarthritis of the hips. He states he's been recommended for hip replacement in the past. The patient does have a basal cell carcinoma on the left knee, states he has an appointment to have it removed with Dr. Bazzi at the beginning of August. Tolerating diet. Objective Vitals Vital Signs Date Time Temp Pulse Resp B/P Pulse Ox O2 Delivery O2 Flow Rate FiO2 08/02/16 10:28 98.0 68 20 140/62 96 08/02/16 04:38 98.4 69 18 144/82 98 08/02/16 02:00 75 18 128/65 98 Room Air 08/02/16 00:51 98.0 78 20 125/76 100 I/O 08/01/16 08/01/16 08/01/16 08/02/16 08/02/16 08/02/16 07:00 15:00 23:00 07:00 15:00 23:00 Intake Total 360 ml 820 ml Output Total 400 ml Balance 360 ml 420 ml Intake Oral 360 ml 520 ml IV Total 300 ml Output Urine Total 400 ml Result Diagram: 08/02/16 0304 08/02/16 0304 Imaging Last Impressions Ankle X-Ray 08/02/16 0000 Signed Impressions: Service Date/Time: Tuesday, August 02, 2016 01:01 - CONCLUSION: 1. Soft tissue swelling at the ankle. No acute bony abnormality. Edouard Gomez MD Objective Remarks GENERAL: Well-developed well-nourished. In no acute distress. SKIN: Warm and dry. Venous stasis skin changes of the lower extremities. Skin tears of the bilateral ankles. Chronic ulceration on the lateral aspect of the left knee with no surrounding erythema or drainage. HEENT: Normocephalic. Pupils equal and round. Mucous membranes pink and moist. CARDIOVASCULAR: Regular rate and rhythm. No murmur appreciated. RESPIRATORY: No accessory muscle use. Clear to auscultation. Breath sounds equal bilaterally. GASTROINTESTINAL: Abdomen soft, non-tender, nondistended. Bowel sounds x4. Mild scrotal edema. MUSCULOSKELETAL: Sitting up with kyphosis of the spine. Bilateral lower extremity edema, 1+ on the right and 2+ on the left. NEUROLOGICAL: Awake and alert. No focal neurological deficits. Moves upper and lower extremities spontaneously. Normal speech. PSYCHIATRIC: Pleasant mood and affect; insight and judgment normal. A/P Problem List: (1) Fall ICD Code: W19.XXXA Status: Acute (2) Bilateral ankle pain ICD Code: M25.571 Status: Acute (3) Total self-care deficit ICD Code: R41.89 Status: Acute Assessment and Plan 61-year-old Homeless with a PMH of HTN, CAD, HLD, and Wheelchair Bound who was brought to the ER by EMS secondary to complaints of bilateral ankle pain after fall from wheelchair Fall: s/p mechanical fall from wheelchair, denies LOC or head trauma. No injuries sustained other than superficial skin tear. Bilateral Ankle Pain: secondary to fall, no obvious deformity noted, Ankle X- ray w/ soft tissue swelling, no acute bony injury. Tylenol 3 and [place] as needed. Total Self-Care Deficit: Pt found by EMS to be living in poor conditions. PT consulted. Case management consulted. CKD stage III with possible mild dehydration/JOEY: Creatinine 1.93, previously 1.59 on 05/08/16. Gentle IVF. Follow-up BMP. Chronic basal cell carcinoma of the left knee: Continue outpatient general surgery follow-up for removal. CHF/anasarca: Chronic, diastolic, preserved EF in 2013. Caution with IVF. Continue carvedilol and Lasix. Monitor. Hypothyroidism: Chronic. Continue home levothyroxine. DVT Prophylaxis: Mechanical contraindication secondary to lower extremity wounds/edema. Lovenox. Discharge Planning Follow-up physical therapy and case management input. Problem Qualifiers (1) Bilateral ankle pain: Qualified Code: M25.571 - Acute bilateral ankle pain Lonnie Jackson 17, 2017 10:51
[2016-08-02] MEDS: ACETAMINOPHEN/HYDROcodone 325 MG/5 MG TAB PO PRN (11:20)
[2016-08-02] MEDS: ENOXAPARIN SODIUM 30 MG/0.3 ML SYRINGE SQ SCH (13:38)
[2016-08-02 17:01] VITALS: BP 96/51; PULSE 70; RESP 18; TEMP 97.9; O2SAT 95
[2016-08-02 19:28] VITALS: BP 108/57; PULSE 68; RESP 18; TEMP 98.2; O2SAT 98
[2016-08-03 00:18] VITALS: BP 110/62; PULSE 65; RESP 18; TEMP 98.1; O2SAT 96
[2016-08-03 04:14] VITALS: BP 100/50; PULSE 60; RESP 17; TEMP 98.2; O2SAT 96
[2016-08-03] MEDS: LEVOTHYROXINE SODIUM 150 MCG TAB PO SCH (05:03)
[2016-08-03 08:15] VITALS: BP 140/69; PULSE 60; RESP 18; TEMP 98; O2SAT 90
[2016-08-03 08:21] LABS: BICARBONATE 19.7 MEQ/L (21.0-32.0); MAGNESIUM 2.1 MG/DL (1.5-2.5); POTASSIUM 4.2 MEQ/L (3.5-5.1)
[2016-08-03] MEDS: SODIUM CHLORIDE 0.9% FLUSH 10 ML FLUSH IV FLUSH SCH ×3 (09:09→22:17)
[2016-08-03] MEDS: ACETAMINOPHEN/HYDROcodone 325 MG/5 MG TAB PO PRN (09:09)
[2016-08-03] MEDS: DOCUSATE SODIUM 50 MG/SENNA 8.6 MG TAB PO SCH ×2 (09:09→21:00)
[2016-08-03] MEDS: ASPIRIN EC 81 MG TABEC PO SCH ×2 (09:09→22:17)
[2016-08-03] MEDS: FUROSEMIDE 20 MG TAB PO SCH (09:09)
[2016-08-03] MEDS: CARVEDILOL 6.25 MG TAB PO SCH ×2 (09:09→21:00)
--- NOTE | 2016-08-03 09:38 | HHI.PR ---
Subjective Remarks Follow-up for fall and failure to thrive. The patient reports ankle pain and swelling has improved. He is sitting up in bed eating. He's happy to case management is working on placement for him. He has no acute complaints or concerns. Objective Vitals Vital Signs Date Time Temp Pulse Resp B/P Pulse Ox O2 Delivery O2 Flow Rate FiO2 08/03/16 08:15 98.0 60 18 140/69 90 08/03/16 04:14 98.2 60 17 100/50 96 08/03/16 00:18 98.1 65 18 110/62 96 08/02/16 19:28 98.2 68 18 108/57 98 08/02/16 17:01 97.9 70 18 96/51 95 08/02/16 10:28 98.0 68 20 140/62 96 I/O 08/02/16 08/02/16 08/02/16 08/03/16 08/03/16 08/03/16 07:00 15:00 23:00 07:00 15:00 23:00 Intake Total 360 ml 820 ml 580 ml Output Total 400 ml 600 ml Balance 360 ml 420 ml -20 ml Intake Oral 360 ml 520 ml IV Total 300 ml 580 ml Output Urine Total 400 ml 600 ml Result Diagram: 08/02/16 0304 08/03/16 0713 Imaging Last Impressions Ankle X-Ray 08/02/16 0000 Signed Impressions: Service Date/Time: Tuesday, August 02, 2016 01:01 - CONCLUSION: 1. Soft tissue swelling at the ankle. No acute bony abnormality. Edouard Gomez MD Objective Remarks GENERAL: Well-developed well-nourished. In no acute distress. SKIN: Warm and dry. Venous stasis skin changes of the lower extremities. Skin tears of the bilateral ankles. Chronic ulceration on the lateral aspect of the left knee with no surrounding erythema or drainage. HEENT: Normocephalic. Pupils equal and round. Mucous membranes pink and moist. CARDIOVASCULAR: Regular rate and rhythm. No murmur appreciated. RESPIRATORY: No accessory muscle use. Clear to auscultation. Breath sounds equal bilaterally. GASTROINTESTINAL: Abdomen soft, non-tender, nondistended. Bowel sounds x4. Mild scrotal edema. MUSCULOSKELETAL: Sitting up with kyphosis of the spine. Bilateral lower extremity edema, trace + on the right and 1+ on the left. NEUROLOGICAL: Awake and alert. No focal neurological deficits. Moves upper and lower extremities spontaneously. Normal speech. PSYCHIATRIC: Pleasant mood and affect; insight and judgment normal. A/P Problem List: (1) Fall ICD Code: W19.XXXA Status: Acute (2) Bilateral ankle pain ICD Code: M25.571 Status: Acute (3) Total self-care deficit ICD Code: R41.89 Status: Acute Assessment and Plan 61-year-old Homeless with a PMH of HTN, CAD, HLD, and Wheelchair Bound who was brought to the ER by EMS secondary to complaints of bilateral ankle pain after fall from wheelchair Fall: s/p mechanical fall from wheelchair, denies LOC or head trauma. No injuries sustained other than superficial skin tear. Bilateral Ankle Pain: secondary to fall, no obvious deformity noted, Ankle X- ray w/ soft tissue swelling, no acute bony injury. Tylenol #3 and [place] as needed. Total Self-Care Deficit: Pt found by EMS to be living in poor conditions. PT consulted, recommends SNF. Case management consulted. CKD stage III: Creatinine 1.93, stable at 1.85 overnight. DC IVF. Chronic basal cell carcinoma of the left knee: Continue outpatient general surgery follow-up for removal. CHF/anasarca: Chronic, diastolic, preserved EF in 2012. Caution with IVF. Continue carvedilol and Lasix. Appear stable. Hypothyroidism: Chronic. Continue home levothyroxine. DVT Prophylaxis: Mechanical contraindication secondary to lower extremity wounds/edema. Lovenox. Discharge Planning Patient is medically clear for discharge to SNF when arranged. Problem Qualifiers (1) Bilateral ankle pain: Qualified Code: M25.571 - Acute bilateral ankle pain Lonnie Jackson Aug 03, 2016 09:38
[2016-08-03] MEDS ORDERED: ACET-534 PO (09:39)
[2016-08-03] MEDS: ENOXAPARIN SODIUM 30 MG/0.3 ML SYRINGE SQ SCH (11:00)
[2016-08-03 12:00] VITALS: BP 102/58; PULSE 67; TEMP 98.2; O2SAT 99
[2016-08-03 16:15] VITALS: BP 120/62; PULSE 66; RESP 18; TEMP 98; O2SAT 99
[2016-08-03 19:36] VITALS: BP 124/59; PULSE 58; RESP 18; TEMP 98.1; O2SAT 97
[2016-08-04] MEDS: ACETAMINOPHEN/CODEINE 300 MG/30 MG TAB PO PRN (03:54)
[2016-08-04 06:18] VITALS: BP 121/68; PULSE 66; RESP 18; TEMP 98; O2SAT 98
[2016-08-04] MEDS: LEVOTHYROXINE SODIUM 150 MCG TAB PO SCH (06:36)
[2016-08-04 08:38] VITALS: BP 98/57; PULSE 62; RESP 16; TEMP 98.4; O2SAT 97
[2016-08-04] MEDS: FUROSEMIDE 20 MG TAB PO SCH (09:18)
[2016-08-04] MEDS: ENOXAPARIN SODIUM 30 MG/0.3 ML SYRINGE SQ SCH (09:18)
[2016-08-04] MEDS: CARVEDILOL 6.25 MG TAB PO SCH ×2 (09:18→21:05)
[2016-08-04] MEDS: ASPIRIN EC 81 MG TABEC PO SCH ×2 (09:19→21:04)
[2016-08-04] MEDS: DOCUSATE SODIUM 50 MG/SENNA 8.6 MG TAB PO SCH ×2 (09:19→21:00)
[2016-08-04] MEDS: SODIUM CHLORIDE 0.9% FLUSH 10 ML FLUSH IV FLUSH SCH ×2 (09:19→21:00)
--- NOTE | 2016-08-04 09:58 | HHI.PR ---
Subjective Remarks Follow up for fall, failure to thrive. The patient reports continue right ankle pain, however improving. He reports pain at the site of his left leg wound. Denies fevers/chills. Denies any other medical complaints at this time. He is looking forward to rehab placement. Objective Vitals Vital Signs Date Time Temp Pulse Resp B/P Pulse Ox O2 Delivery O2 Flow Rate FiO2 08/04/16 08:38 98.4 62 16 98/57 97 08/04/16 06:18 98.0 66 18 121/68 98 08/04/16 04:55 21 08/03/16 19:36 98.1 58 18 124/59 97 08/03/16 16:15 98.0 66 18 120/62 99 08/03/16 12:23 18 08/03/16 12:00 98.2 67 102/58 99 I/O 08/03/16 08/03/16 08/03/16 08/04/16 08/04/16 08/04/16 07:00 15:00 23:00 07:00 15:00 23:00 Intake Total 580 ml 1050 ml Output Total 600 ml Balance -20 ml 1050 ml Intake Oral 1050 ml IV Total 580 ml Output Urine Total 600 ml # Voids 1 Result Diagram: 08/02/16 0304 08/03/16 0713 Imaging Last Impressions Ankle X-Ray 08/02/16 0000 Signed Impressions: Service Date/Time: Tuesday, August 02, 2016 01:01 - CONCLUSION: 1. Soft tissue swelling at the ankle. No acute bony abnormality. Edouard Gomze MD Objective Remarks GENERAL: Well-nourished, well-developed obese middle aged male patient in [facility]. SKIN: Warm and dry. Venous stasis skin changes of the lower extremities. Skin tears of the bilateral ankles. Chronic ulceration on the lateral aspect of the left knee with no surrounding erythema or drainage. HEENT: Normocephalic. Atraumatic.Pupils equal and round. Mucous membranes pink and moist. NECK: Supple. Trachea midline. CARDIOVASCULAR: Regular rate and rhythm. S1, S2 noted. No murmur appreciated. RESPIRATORY: No accessory muscle use. Clear to auscultation. Breath sounds equal bilaterally. GASTROINTESTINAL: Abdomen soft, non-tender, nondistended. Normoactive bowel sounds x4. GENITOURINARY: mild scrotal edema, no erythema. MUSCULOSKELETAL: No obvious deformities. 1+ bilateral lower extremity edema. NEUROLOGICAL: Awake and alert. No obvious cranial nerve deficits. Motor grossly within normal limits. Moves all extremities spontaneously. Normal speech. PSYCHIATRIC: Appropriate mood and affect; insight and judgment normal. Medications and IVs Current Medications Medications (Trade) Dose Ordered Sig/Krys Route Start Time Stop Time Status Last Admin (NS Flush) 2 ml UNSCH PRN IV FLUSH 08/02/16 03:00 (NS Flush) 2 ml BID IV FLUSH 08/02/16 09:00 08/04/16 09:19 (Zofran Inj) 4 mg Q6H PRN IVP 08/02/16 03:00 (Tylenol) 650 mg Q6H PRN PO 08/02/16 03:00 ([place] 5-325 Mg) 1 tab Q4H PRN PO 08/02/16 03:00 08/03/16 09:09 (Yashira-Colace) 1 tab BID PO 08/02/16 09:00 08/03/16 09:09 (Milk Of Magnesia Liq) 30 ml Q12H PRN PO 08/02/16 03:00 (Senokot) 17.2 mg Q12H PRN PO 08/02/16 03:00 (Dulcolax Supp) 10 mg DAILY PRN RECTAL 08/02/16 03:00 (Lactulose Liq) 30 ml DAILY PRN PO 08/02/16 03:00 (Ecotrin Ec) 81 mg BID PO 08/02/16 09:00 08/04/16 09:19 (Coreg) 6.25 mg BID PO 08/02/16 09:00 08/04/16 09:18 (Lasix) 20 mg DAILY PO 08/02/16 09:00 08/04/16 09:18 (Synthroid) 150 mcg DAILY@0600 PO 08/03/16 06:00 08/04/16 06:36 (Tylenol-Codeine #3) 1 tab Q6H PRN PO 08/02/16 10:45 08/04/16 03:54 (Lovenox Inj) 30 mg Q24H SQ 08/02/16 11:00 08/04/16 09:18 A/P Problem List: (1) Fall ICD Code: W19.XXXA Status: Acute (2) Bilateral ankle pain ICD Code: M25.571 Status: Acute (3) Total self-care deficit ICD Code: R41.89 Status: Acute Assessment and Plan 61-year-old Homeless with a PMH of HTN, CAD, HLD, and Wheelchair Bound who was brought to the ER by EMS secondary to complaints of bilateral ankle pain after fall from wheelchair Fall: s/p mechanical fall from wheelchair, denies LOC or head trauma. No injuries sustained other than superficial skin tear. Wound care consulted. Bilateral Ankle Pain: secondary to fall, no obvious deformity noted, Ankle X- ray w/ soft tissue swelling, no acute bony injury. Tylenol #3 and [place] as needed. Total Self-Care Deficit: Pt found by EMS to be living in poor conditions. PT consulted, recommends SNF. Case management consulted. CKD stage III: Creatinine 1.93, stable at 1.85 overnight. Discontinue IVF. Avoid nephrotoxins. Chronic basal cell carcinoma of the left knee: Continue outpatient general surgery follow-up for removal. CHF/anasarca: Chronic, diastolic, preserved EF in 2012. Caution with IVF. Continue carvedilol and Lasix. Appear stable. Hypothyroidism: Chronic. Continue home levothyroxine. DVT Prophylaxis: Lovenox. Mechanical contraindication secondary to lower extremity wounds/edema. Discharge Planning Awaiting placement, case management assisting. Problem Qualifiers (1) Bilateral ankle pain: Qualified Code: M25.571 - Acute bilateral ankle pain Anita Chung PA-C Aug 04, 2016 9:58 am
[2016-08-04 11:52] VITALS: BP 119/65; PULSE 60; RESP 18; TEMP 97.8; O2SAT 98
[2016-08-04 15:35] VITALS: BP 127/75; PULSE 64; RESP 18; TEMP 98.6; O2SAT 96
[2016-08-04 19:36] VITALS: BP 121/78; PULSE 65; RESP 18; TEMP 98.5; O2SAT 97
[2016-08-05] MEDS: ACETAMINOPHEN/CODEINE 300 MG/30 MG TAB PO PRN (01:11)
[2016-08-05] MEDS: LEVOTHYROXINE SODIUM 150 MCG TAB PO SCH (06:03)
[2016-08-05 08:14] VITALS: BP 86/52; PULSE 56; RESP 20; TEMP 98.3; O2SAT 96
--- NOTE | 2016-08-05 08:49 | HHI.PR ---
Subjective Remarks Follow up for fall, failure to thrive. The patient reports feeling well today. Denies any ankle pains. He believes his lower extremity edema is improving after re-starting his Lasix. He has no other medical complaints. Objective Vitals Vital Signs Date Time Temp Pulse Resp B/P Pulse Ox O2 Delivery O2 Flow Rate FiO2 08/05/16 08:14 98.3 56 20 86/52 96 08/04/16 19:36 98.5 65 18 121/78 97 08/04/16 15:35 98.6 64 18 127/75 96 08/04/16 11:52 97.8 60 18 119/65 98 I/O 08/04/16 08/04/16 08/04/16 08/05/16 08/05/16 08/05/16 07:00 15:00 23:00 07:00 15:00 23:00 Intake Total 200 ml Balance 200 ml Intake Oral 200 ml Result Diagram: 08/02/16 0304 08/03/16 0713 Imaging Last Impressions Ankle X-Ray 08/02/16 0000 Signed Impressions: Service Date/Time: Thursday, August 02, 2016 01:01 - CONCLUSION: 1. Soft tissue swelling at the ankle. No acute bony abnormality. Edouard Gomez MD Objective Remarks GENERAL: Well-nourished, well-developed obese middle aged male patient in [facility]. SKIN: Warm and dry. Venous stasis skin changes of the lower extremities. Skin tears of the bilateral ankles. Chronic ulceration on the lateral aspect of the left knee with no surrounding erythema or drainage. HEENT: Normocephalic. Atraumatic.Pupils equal and round. Mucous membranes pink and moist. NECK: Supple. Trachea midline. CARDIOVASCULAR: Regular rate and rhythm. S1, S2 noted. No murmur appreciated. RESPIRATORY: No accessory muscle use. Clear to auscultation. Breath sounds equal bilaterally. GASTROINTESTINAL: Abdomen soft, non-tender, nondistended. Normoactive bowel sounds x4. GENITOURINARY: mild scrotal edema, no erythema. MUSCULOSKELETAL: No obvious deformities. 1+ bilateral lower extremity edema. NEUROLOGICAL: Awake and alert. No obvious cranial nerve deficits. Motor grossly within normal limits. Moves all extremities spontaneously. Normal speech. PSYCHIATRIC: Appropriate mood and affect; insight and judgment normal. Medications and IVs Current Medications Medications (Trade) Dose Ordered Sig/Krys Route Start Time Stop Time Status Last Admin (NS Flush) 2 ml UNSCH PRN IV FLUSH 08/02/16 03:00 (NS Flush) 2 ml BID IV FLUSH 08/02/16 09:00 08/04/16 09:19 (Zofran Inj) 4 mg Q6H PRN IVP 08/02/16 03:00 (Tylenol) 650 mg Q6H PRN PO 08/02/16 03:00 ([place] 5-325 Mg) 1 tab Q4H PRN PO 08/02/16 03:00 08/03/16 09:09 (Yashira-Colace) 1 tab BID PO 08/02/16 09:00 08/03/16 09:09 (Milk Of Magnesia Liq) 30 ml Q12H PRN PO 08/02/16 03:00 (Senokot) 17.2 mg Q12H PRN PO 08/02/16 03:00 (Dulcolax Supp) 10 mg DAILY PRN RECTAL 08/02/16 03:00 (Lactulose Liq) 30 ml DAILY PRN PO 08/02/16 03:00 (Ecotrin Ec) 81 mg BID PO 08/02/16 09:00 08/04/16 21:04 (Coreg) 6.25 mg BID PO 08/02/16 09:00 08/04/16 21:05 (Lasix) 20 mg DAILY PO 08/02/16 09:00 08/04/16 09:18 (Synthroid) 150 mcg DAILY@0600 PO 08/03/16 06:00 08/05/16 06:03 (Tylenol-Codeine #3) 1 tab Q6H PRN PO 08/02/16 10:45 08/05/16 01:11 (Lovenox Inj) 30 mg Q24H SQ 08/02/16 11:00 08/04/16 09:18 A/P Problem List: (1) Fall ICD Code: W19.XXXA Status: Acute (2) Bilateral ankle pain ICD Code: M25.571 Status: Acute (3) Total self-care deficit ICD Code: R41.89 Status: Acute Assessment and Plan 61-year-old Homeless with a PMH of HTN, CAD, HLD, and Wheelchair Bound who was brought to the ER by EMS secondary to complaints of bilateral ankle pain after fall from wheelchair Fall: s/p mechanical fall from wheelchair, denies LOC or head trauma. No injuries sustained other than superficial skin tear. PT recommends rehab. Bilateral Ankle Pain: secondary to fall, no obvious deformity noted, Ankle X- ray w/ soft tissue swelling, no acute bony injury. Tylenol #3 and [place] as needed. Total Self-Care Deficit: Pt found by EMS to be living in poor conditions. PT consulted, recommends SNF. Case management consulted. CKD stage III: Creatinine 1.93, stable at 1.85 overnight. Discontinue IVF. Avoid nephrotoxins. Chronic basal cell carcinoma of the left knee: Continue outpatient general surgery follow-up for removal. Consult wound care for now. CHF/anasarca: Chronic, diastolic, preserved EF in 2012. Caution with IVF. Continue carvedilol and Lasix. Appear stable. Hypothyroidism: Chronic. Continue home levothyroxine. DVT Prophylaxis: Lovenox. Mechanical contraindication secondary to lower extremity wounds/edema. Discharge Planning Awaiting placement, case management assisting. Problem Qualifiers (1) Bilateral ankle pain: Qualified Code: M25.571 - Acute bilateral ankle pain Anita Chung PA-C Aug 05, 2016 8:49 am
[2016-08-05] MEDS: CARVEDILOL 6.25 MG TAB PO SCH (09:00)
[2016-08-05] MEDS: FUROSEMIDE 20 MG TAB PO SCH (09:00)
[2016-08-05 09:33] VITALS: BP 100/60; PULSE 53
[2016-08-05] MEDS: ASPIRIN EC 81 MG TABEC PO SCH (10:28)
[2016-08-05] MEDS: ENOXAPARIN SODIUM 30 MG/0.3 ML SYRINGE SQ SCH (10:28)
[2016-08-05] MEDS: SODIUM CHLORIDE 0.9% FLUSH 10 ML FLUSH IV FLUSH SCH (10:28)
[2016-08-05] MEDS: DOCUSATE SODIUM 50 MG/SENNA 8.6 MG TAB PO SCH (10:29)
[2016-08-05 12:23] VITALS: BP 116/68; PULSE 54; RESP 16; TEMP 98; O2SAT 100
--- NOTE | 2016-08-05 14:04 | HHI.DS ---
cc: Gayla Pizano MD Discharge Summary Admission Date Aug 02, 2016 at 2:39 am Discharge Date: Aug 05, 2016 Admitting Diagnosis FTT, bilat ankle pain (1) Fall ICD Code: W19.XXXA Diagnosis: Principal (2) Bilateral ankle pain ICD Code: M25.571 Diagnosis: Principal (3) Total self-care deficit ICD Code: R41.89 Diagnosis: Secondary Procedures None. Brief History - From Admission This is a 61-year-old Homeless with a PMH of HTN, CAD, Hyperlipidemia and Wheelchair Bound was brought to the ER by EMS secondary to complaints of bilateral ankle pain after fall from wheelchair. Per patient, he was attempting to transfer when he had sudden fall. No head trauma or LOC reported. Per EMS, patient's clothes and socks were soaked in urine and house was unkempt. Pt initially reported living w/ friend, however unable to provide address or phone for possible HHC. Asked to admit for placement. Pt without complaints at this time. Vitals stable. CBC/BMP: 08/02/16 0304 08/03/16 0713 Significant Findings Laboratory Tests Test 08/03/16 07:13 Chloride Level 112 MEQ/L (98-107) Carbon Dioxide Level 19.7 MEQ/L (21.0-32.0) Blood Urea Nitrogen 32 MG/DL (7-18) Creatinine 1.85 MG/DL (0.60-1.30) Estimat Glomerular Filtration 37 ML/MIN (>89) Rate Calcium Level 8.2 MG/DL (8.5-10.1) Imaging Last Impressions Ankle X-Ray 08/02/16 0000 Signed Impressions: Service Date/Time: Tuesday, August 02, 2016 01:01 - CONCLUSION: 1. Soft tissue swelling at the ankle. No acute bony abnormality. Edouard Gomez MD PE at Discharge GENERAL: Well-nourished, well-developed obese middle aged male patient in [facility]. SKIN: Warm and dry. Venous stasis skin changes of the lower extremities. Skin tears of the bilateral ankles. Chronic ulceration on the lateral aspect of the left knee with no surrounding erythema or drainage. HEENT: Normocephalic. Atraumatic.Pupils equal and round. Mucous membranes pink and moist. NECK: Supple. Trachea midline. CARDIOVASCULAR: Regular rate and rhythm. S1, S2 noted. No murmur appreciated. RESPIRATORY: No accessory muscle use. Clear to auscultation. Breath sounds equal bilaterally. GASTROINTESTINAL: Abdomen soft, non-tender, nondistended. Normoactive bowel sounds x4. GENITOURINARY: mild scrotal edema, no erythema. MUSCULOSKELETAL: No obvious deformities. 1+ bilateral lower extremity edema. NEUROLOGICAL: Awake and alert. No obvious cranial nerve deficits. Motor grossly within normal limits. Moves all extremities spontaneously. Normal speech. PSYCHIATRIC: Appropriate mood and affect; insight and judgment normal. Hospital Course 61-year-old Homeless with a PMH of HTN, CAD, HLD, and Wheelchair Bound who was brought to the ER by EMS secondary to complaints of bilateral ankle pain after fall from wheelchair Fall: s/p mechanical fall from wheelchair, denies LOC or head trauma. No injuries sustained other than superficial skin tear. PT recommends rehab. Bilateral Ankle Pain: secondary to fall, no obvious deformity noted, Ankle X- ray w/ soft tissue swelling, no acute bony injury. Tylenol #3 and [place] as needed. Pain resolved. Total Self-Care Deficit: Pt found by EMS to be living in poor conditions. PT consulted, recommends SNF. Case management arranged placement at [facility]. CKD stage III: Creatinine 1.93, stable at 1.85. Discontinued IVF. Avoid nephrotoxins. Chronic basal cell carcinoma of the left knee: Continue outpatient general surgery follow-up for removal. Consult wound care for now. Discussed with patient's PCP Dr. Pizano who has arranged for the patient to see a surgeon as outpatient. CHF/anasarca: Chronic, diastolic, preserved EF in 2013. Caution with IVF. Continue carvedilol and Lasix. Appear stable. Hypothyroidism: Chronic. Continue home levothyroxine. DVT Prophylaxis: Lovenox. Mechanical contraindication secondary to lower extremity wounds/edema. On 08/04/16, had long discussion with patient's PCP Dr. Pizano who reported the patient is extremely difficult to manage as the patient does not follow up as instructed, does not continue wound care, gives various address at which he does not reside at. Dr. Pizano strongly recommended placement for this patient to have close follow up with physicians and wound care. Pt Condition on Discharge: Stable Discharge Disposition: Discharge to SNF Discharge Time: > 30 minutes Discharge Instructions DIET: Follow Instructions for: Heart Healthy Diet Activities you can perform: Regular-No Restrictions Follow up Referrals: PCP Follow-up - 2-3 Days New Medications: Acetaminophen W/ Codeine (Acetaminophen/Codeine Daya 300-30 mg) 1 Tab Tab 1 TAB PO Q6H PRN PAIN SCALE 6 TO 10 #12 TAB Continued Medications: Aspirin DR (Aspirin DR) 81 Mg Tabdr 81 MG PO BID Ref 0 TAB Carvedilol (Coreg) 6.25 Mg Tab 6.25 MG PO BID #60 Ref 0 TAB Cyanocobalamin (B-12) 100 Mcg Tab 200 MCG PO DAILY Nutritional Supplement #1 Ref 0 BOTTLE Furosemide (Lasix) 20 Mg Tab 20 MG PO DAILY #30 Ref 0 TAB Levothyroxine (Synthroid) 150 Mcg Tab 150 MCG PO DAILY Thyroid #30 Ref 0 TAB Discontinued Medications: Amoxicillin-Clavulanate (Augmentin) 500-125 mg Tab 500 MG PO Q8HR cellulitis #27 TAB Ciclopirox Topical (Ciclopirox Topical) 0.77% Gel 1 APPLIC TOPICAL BID PRN FUNGUS ON LEFT LOWER LEG #30 Ref 0 GM Levothyroxine (Levothyroxine) 50 Mcg Tab 50 MCG PO DAILY Thyroid #30 Ref 0 TAB Anita Chung PA-C Aug 05, 2016 2:04 pm
== END 2016-08-05 13:48 | disposition home or self-care (01) ==
LOC: NEPE 00:45 → NEDA 02:39 → NEPGCP 04:33
PROVIDERS: ADMIT Hospitalist; ATTEND Hospitalist
DX: S80.812A Abrasion, left lower leg, initial encounter (principal); S80.811A Abrasion, right lower leg, initial encounter; L89.899 Pressure ulcer of other site, unspecified stage; M16.0 Bilateral primary osteoarthritis of hip; E11.22 Type 2 diabetes mellitus with diabetic chronic kidney disease; N18.3 Chronic kidney disease, stage 3 (moderate); I50.32 Chronic diastolic (congestive) heart failure; R60.1 Generalized edema; R62.7 Adult failure to thrive; W05.0XXA Fall from non-moving wheelchair, initial encounter; E03.9 Hypothyroidism, unspecified; I25.10 Atherosclerotic heart disease of native coronary artery without angina pectoris; C44.719 Basal cell carcinoma of skin of left lower limb, including hip; E78.5 Hyperlipidemia, unspecified; Z99.3 Dependence on wheelchair; Z59.0 Homelessness; Z95.5 Presence of coronary angioplasty implant and graft; Z73.6 Limitation of activities due to disability; Z79.82 Long term (current) use of aspirin
CPT/HCPCS: 73610; 80048; 80053; 83735; 85025; 97110; 97162; 99285; G0378; G8987; G8988; J1650; J7030

== ENCOUNTER 2016-09-10 23:45 | Emergency (ER) | payer OTHER, MEDICAID ==
[~2016-09-10 23:45] MED LIST changes: +ACET-534 PO; -AUGM500T7 PO; -CICL0.773 TOPICAL; -FERR325T PO; +LEVO.15 PO; -LEVO50TA4 PO; -LISI-519 PO; -MULT-135 PO; -TYLETAB34 PO
[2016-09-10 23:49] VITALS: BP 139/88; PULSE 70; RESP 16; TEMP 98.2; O2SAT 98
[2016-09-11] MEDS ORDERED: VANCOMYCIN INJ 1,000 MG in SODIUM CHLOR 0.9% 250 ML INJ 250 ML IV STA (00:50)
[2016-09-11] MEDS ORDERED: PIPERACIL-TAZO 4.5 GM PREMIX 100 ML IV STA (00:50)
[2016-09-11] MEDS ORDERED: SODIUM CHLOR 0.9% 1000 ML INJ 1,000 ML IV ONE ×3 (00:50)
--- NOTE | 2016-09-11 01:09 | PD ---
HPI . Left thigh wound Chief Complaint: Skin Problem Time Seen by Provider: 00:49 Travel History International Travel<30 days: No Contact w/Intl Traveler<30days: No Traveled to known affect area: No History of Present Illness HPI This patient presents with a nonhealing left 5 wound. He states that he scraped his thigh a couple of days ago and it is not getting any better. He now complains of some redness and swelling of his left lower extremity. He denies any fever. No modifying factors. This patient is homeless. He is wheelchair-bound. PFSH Past Medical History Hx Anticoagulant Therapy: Yes (ASA) Arthritis: Yes Asthma: No Blood Disorders: No Heart Rhythm Problems: No Cancer: No Cardiac Catheterization: Yes Cardiovascular Problems: Yes High Cholesterol: Yes Chemotherapy: No Chest Pain: No Congestive Heart Failure: No COPD: No Coronary Artery Disease: Yes Diabetes: Yes Patient Takes Glucophage: No Diminished Hearing: Yes (SLIGHT HEARING LOSS ) Endocrine: No Gastrointestinal Disorders: No Genitourinary: No Hypertension: No Immune Disorder: No Implanted Vascular Access Dvce: No Musculoskeletal: Yes Neurologic: No Reproductive: No Respiratory: Yes Integumentary: Yes (wounds to bilat legs) Immunizations Current: No Radiation Therapy: No Sleep Apnea: Yes Thyroid Disease: Yes (HYPO-) Tetanus Vaccination: > 5 Years Influenza Vaccination: Yes Past Surgical History Cardiac Surgery: Yes (STENT PLACED IN 09/28) Other Surgery: Yes (RIGHT FOOT) Social History Alcohol Use: No Tobacco Use: No Substance Use: No Allergies-Medications (Allergen,Severity, Reaction): Coded Allergies: *MDRO Multi-Drug Resistant Organism (Verified Adverse Reaction, Unknown, ) 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 Reported Meds & Prescriptions Reported Meds & Active Scripts Active Reported Synthroid (Levothyroxine Sodium) 150 Mcg Tab 150 Mcg PO DAILY B-12 (Cyanocobalamin) 100 Mcg Tab 200 Mcg PO DAILY Coreg (Carvedilol) 6.25 Mg Tab 6.25 Mg PO BID Aspirin DR (Aspirin) 81 Mg Tabdr 81 Mg PO BID Lasix (Furosemide) 20 Mg Tab 20 Mg PO DAILY Review of Systems Except as stated in HPI: all other systems reviewed are Neg General / Constitutional: No: Fever, Chills Musculoskeletal: Positive: Edema Skin: Positive Change in Pigmentation, Positive Other (wound on the left fall) Physical Exam Narrative GENERAL: Awake and alert and in no acute distress. Disheveled and malodorous. SKIN: Warm and dry. He has a large, deep open wound just proximal to the left knee on the lateral thigh. He has redness and swelling of the left lower extremity distal to the wound. HEAD: Atraumatic. Normocephalic. EYES: Pupils equal and round. Extraocular movements are intact. NECK: Trachea midline. CARDIOVASCULAR: Regular rate and rhythm. RESPIRATORY: No accessory muscle use. MUSCULOSKELETAL: No obvious deformities. No edema. He complains of pain on log rolling of the left hip. NEUROLOGICAL: Awake and alert. No obvious cranial nerve deficits. Motor grossly within normal limits. Normal speech. PSYCHIATRIC: Appropriate mood and affect; insight and judgment normal. Data Data Last Documented VS Vital Signs Date Time Temp Pulse Resp B/P Pulse Ox O2 Delivery O2 Flow Rate FiO2 09/10/16 23:49 98.2 70 16 139/88 98 Room Air Orders Complete Blood Count With Diff (09/11/16 00:50) Comprehensive Metabolic Panel (09/11/16 00:50) Lactic Acid Sepsis Protocol (09/11/16 00:50) Urinalysis - C+S If Indicated (09/11/16 00:50) Blood Culture (09/11/16 00:50) Wound Culture And Gram Stain (09/11/16 00:50) Iv Access Insert/Monitor (09/11/16 00:50) Piperacil-Tazo 4.5 Gm Premix (Zosyn 4.5 (09/11/16 00:50) Vancomycin Inj (Vancomycin Inj) (09/11/16 00:50) Sodium Chlor 0.9% 1000 Ml Inj (Ns 1000 M (09/11/16 00:50) Sodium Chlor 0.9% 1000 Ml Inj (Ns 1000 M (09/11/16 00:50) Sodium Chlor 0.9% 1000 Ml Inj (Ns 1000 M (09/11/16 00:50) Femur (Ap & Lat/2vws) (09/11/16 00:50) Us Leg Venous Doppler (09/11/16 00:50) Labs Laboratory Tests Test 09/11/16 09/11/16 01:40 02:30 White Blood Count 7.7 TH/MM3 Red Blood Count 4.52 MIL/MM3 Hemoglobin 11.8 GM/DL Hematocrit 36.2 % Mean Corpuscular Volume 80.1 FL Mean Corpuscular Hemoglobin 26.1 PG Mean Corpuscular Hemoglobin 32.5 % Concent Red Cell Distribution Width 14.8 % Platelet Count 177 TH/MM3 Mean Platelet Volume 11.3 FL Neutrophils (%) (Auto) 57.5 % Lymphocytes (%) (Auto) 26.4 % Monocytes (%) (Auto) 5.6 % Eosinophils (%) (Auto) 10.1 % Basophils (%) (Auto) 0.4 % Neutrophils # (Auto) 4.4 TH/MM3 Lymphocytes # (Auto) 2.0 TH/MM3 Monocytes # (Auto) 0.4 TH/MM3 Eosinophils # (Auto) 0.8 TH/MM3 Basophils # (Auto) 0.0 TH/MM3 CBC Comment DIFF FINAL Differential Comment Sodium Level 136 MEQ/L Potassium Level 3.4 MEQ/L Chloride Level 104 MEQ/L Carbon Dioxide Level 22.4 MEQ/L Anion Gap 10 MEQ/L Blood Urea Nitrogen 15 MG/DL Creatinine 1.98 MG/DL Estimat Glomerular Filtration 34 ML/MIN Rate Random Glucose 121 MG/DL Lactic Acid Level 1.2 mmol/L Calcium Level 8.9 MG/DL Total Bilirubin 0.4 MG/DL Aspartate Amino Transf 25 U/L (AST/SGOT) Alanine Aminotransferase 20 U/L (ALT/SGPT) Alkaline Phosphatase 58 U/L Total Protein 7.2 GM/DL Albumin 3.3 GM/DL Urine Color YELLOW Urine Turbidity CLEAR Urine pH 5.5 Urine Specific [place] 1.009 Urine Protein NEG mg/dL Urine Glucose (UA) NEG mg/dL Urine Ketones NEG mg/dL Urine Occult Blood NEG Urine Nitrite NEG Urine Bilirubin NEG Urine Urobilinogen LESS THAN 2.0 MG/DL Urine Leukocyte Esterase NEG Urine RBC 1 /hpf Urine WBC 1 /hpf Urine Squamous Epithelial <1 /hpf Cells Microscopic Urinalysis Comment CATH-CULT NOT IND MDM Medical Decision Making Medical Screen Exam Complete: Yes Emergency Medical Condition: Yes Medical Record Reviewed: Yes (this patient has a history of chronic left hip pain. He also has the history of homelessness and failure to thrive. He is wheelchair-bound.) Differential Diagnosis My differential diagnosis includes but is not limited to localized wound infection, cellulitis, abscess Narrative Course Patient presents with a wound on his distal left thigh with cellulitis distal to this. I have ordered a septic workup. He will be treated with Zosyn and vancomycin. I have ordered an ultrasound because of the swelling of the leg. Last Impressions Lower Extremity Ultrasound 09/11/1649 Signed Impressions: Service Date/Time: August 01:41 - CONCLUSION: No DVT is identified within the left lower extremity. Too Da Silva MD Femur X-Ray 09/11/1649 Signed Impressions: Service Date/Time: August 01:14 - CONCLUSION: Stable appearance of the left hip joint with severe joint space narrowing, osteophytes , and flattening and remodeling of the femoral head. No fracture is identified. Too Da Silva MD The plain film was independently viewed by me. CBC & BMP Diagram 09/11/16 01:40 LA 1.2 This patient has a normal white blood count and a normal lactic acid. He is stable for discharge and treatment as an outpatient. Diagnosis Primary Impression: Soft tissue injury of left thigh Additional Impression: Cellulitis Qualified Code: L03.116 - Cellulitis of left lower extremity Patient Instructions: Cellulitis (DC), General Instructions Additional Instructions: Wash the wound twice daily with soap and water. Then cover with a clean dressing. Med/Other Pt SpecificInfo: Prescription(s) given Scripts Sulfamethoxazole-Trimethoprim (Bactrim DS)800-160 Mg Tab1 Tab PO BID #20 TAB Ref 0 Prov:Faith Yen MD 09/11/16 Disposition: 01 DISCHARGE HOME Condition: Stable Faith Yen MD Sep 11, 2016 01:09
--- NOTE | 2016-09-11 01:47 | RADRPT ---
EXAM DATE/TIME: 09/11/2016 01:14 [facility] COMPARISON: CT ABDOMEN & PELVIS W/O CONTRAST, April 30, 2016, 22:19. INDICATIONS : Left leg pain. Patient states he fell. MEDICAL HISTORY : Diabetes mellitus type II. Cerebrovascular accident. SURGICAL HISTORY : None. ENCOUNTER: Initial ACUITY: 3 days PAIN SCORE: 4/10 LOCATION: Left femur. FINDINGS: 5 views of the left femur demonstrate undermineralization of the bones. The left femoral head is abno rmal with severe flattening and remodeled head with severe joint space narrowing and superior migrati on of the femoral head. The appearance is stable from the prior CT. There are osteophytes on the tejinder cent acetabulum. No soft tissue abnormality or radiopaque foreign body is identified. CONCLUSION: Stable appearance of the left hip joint with severe joint space narrowing, osteophytes, and flattenin g and remodeling of the femoral head. No fracture is identified. Too Da Silva MD on September 11, 2016 at 1:43 Board Certified Radiologist. This report was verified electronically.
[2016-09-11 02:15] LABS: AUTOMATED NEUTROPHIL # 4.4 TH/MM3 (1.8-7.7); BASOPHIL % 0.4 % (0.0-2.0); EOSINOPHIL # 0.8 TH/MM3 (0-0.4); EOSINOPHIL % 10.1 % (0.0-4.0); HEMATOCRIT 36.2 % (39.0-51.0); HEMO FLAGS DIFF FINAL; LYMPH % 26.4 % (9.0-44.0); MEAN CELL VOLUME 80.1 FL (80.0-100.0); MEAN CORPUSCULAR HEMOGLOBIN 26.1 PG (27.0-34.0); MEAN CORPUSCULAR HGB CONC 32.5 % (32.0-36.0); MONO % 5.6 % (0.0-8.0); NEUT % 57.5 % (16.0-70.0); PLATELET COUNT 177 TH/MM3 (150-450); RED BLOOD COUNT 4.52 MIL/MM3 (4.50-5.90); RED CELL DISTRIBUTION WIDTH 14.8 % (11.6-17.2); WHITE BLOOD COUNT 7.7 TH/MM3 (4.0-11.0)
--- NOTE | 2016-09-11 02:15 | RADRPT ---
EXAM DATE/TIME: 09/11/2016 01:41 [facility] COMPARISON: No previous studies available for comparison. INDICATIONS : Left leg swelling. MEDICAL HISTORY : Hypothyroidism. Hypercholesterolemia. Arthritis. Hearing loss. Coronary artery disease. Sleep apne a. Diabetes. MRSA. Anticoagulant therapy, Aspirin 81mg. SURGICAL HISTORY : Coronary artery stent. Cardiac cath. Right foot. ENCOUNTER: Initial ACUITY: 4 - 6 days PAIN SCORE: 8/10 LOCATION: Left leg. TECHNIQUE: Venous ultrasound of the leg was performed from the inguinal ligament to the proximal calf. Real-nav e, color Doppler and spectral tracing, compression and augmentation techniques were used. FINDINGS: There is normal compressibility of the deep venous system from the inguinal region to the proximal ca lf. No echogenic clot is seen in the lumen of the common femoral, femoral, popliteal, and posterior tibial veins. There is a normal response of the venous system to proximal and distal augmentation an d respiration. CONCLUSION: No DVT is identified within the left lower extremity. Too Da Silva MD on September 11, 2016 at 2:13 Board Certified Radiologist. This report was verified electronically.
[2016-09-11 02:20] LABS: ALT (GPT) 20 U/L (12-78); ANION GAP 10 MEQ/L (5-15); AST (GOT) 25 U/L (15-37); BICARBONATE 22.4 MEQ/L (21.0-32.0); BLOOD UREA NITROGEN 15 MG/DL (7-18); CHLORIDE 104 MEQ/L (98-107); GLOMERULAR FILTRATION RATE 34 ML/MIN (>89); POTASSIUM 3.4 MEQ/L (3.5-5.1); SODIUM (NA) 136 MEQ/L (136-145)
[2016-09-11 02:22] LABS: ALKALINE PHOSPHATASE 58 U/L (45-117); TOTAL BILIRUBIN ADULT 0.4 MG/DL (0.2-1.0)
[2016-09-11 02:46] LABS: BLOOD, URINE NEG (NEG); GLUCOSE,URINE NEG (NEG); KETONE, URINE NEG (NEG); NITRITE,URINE NEG (NEG); PH, URINE 5.5 (5.0-8.5); SQUAMOUS EPITHELIAL CELL URINE <1 /hpf (0-5); URINE COLOR YELLOW (YELLW/STRAW)
[2016-09-11 02:50] LABS: COMMENT (UR) CATH-CULT NOT IND; CULTURE IF INDICATED CATH CULTURE NOT IND
[2016-09-11] MEDS ORDERED: BACT800T5 PO (03:16)
== END 2016-09-11 04:25 | disposition home or self-care (01) ==
LOC: NEPC 23:45
DX: L03.116 Cellulitis of left lower limb (principal); M25.552 Pain in left hip; G89.29 Other chronic pain; A49.8 Other bacterial infections of unspecified site; M79.89 Other specified soft tissue disorders; R62.7 Adult failure to thrive; E11.9 Type 2 diabetes mellitus without complications; E78.00 Pure hypercholesterolemia, unspecified; I25.10 Atherosclerotic heart disease of native coronary artery without angina pectoris
CPT/HCPCS: 73552; 80053; 81001; 83605; 85025; 86403; 87040; 87070; 87077; 87186; 93971; 96365; 96367; 99285; J2543; J3370; J7030; J7050

== ENCOUNTER 2016-10-16 19:01 | Emergency (ER) | payer OTHER ==
[~2016-10-16] VITALS: Ht 167.6 cm; Wt 111.0 kg
[~2016-10-16 19:01] MED LIST changes: -ACET-534 PO; +BACT800T5 PO
[2016-10-16 19:40] VITALS: BP 120/64; PULSE 73; RESP 16; TEMP 98.1; O2SAT 99
--- NOTE | 2016-10-16 20:11 | PD ---
HPI Chief Complaint: Abdominal Pain Time Seen by Provider: 19:56 Travel History International Travel<30 days: No Contact w/Intl Traveler<30days: No Traveled to known affect area: No History of Present Illness HPI 61yo M with PMH of hip arthritis wheel chair bound and homeless, DM presents to the ED with c/o abdominal pain since yesterday. Pain is mainly epigastric region. Associated with NBNB vomiting, nonbloody diarrhea. Denies any fever, cough, chest pain, sob, focal weakness or numbness. Pt has left leg cellulitis and was evaluated at [place] 09/10/16 and had US negative for DVT and was discharged with bactrim. Pt states he then had a surgery on 09/24/[address] [facility] and has a large wound lateral left knee that he is suppose to get wound care but did not. States the redness is not getting worst. PFSH Past Medical History Hx Anticoagulant Therapy: Yes (ASA) Arthritis: Yes Asthma: No Blood Disorders: No Heart Rhythm Problems: No Cancer: No Cardiac Catheterization: Yes Cardiovascular Problems: Yes High Cholesterol: Yes Chemotherapy: No Chest Pain: No Congestive Heart Failure: No COPD: No Coronary Artery Disease: Yes Diabetes: Yes Patient Takes Glucophage: No Diminished Hearing: Yes (SLIGHT HEARING LOSS ) Endocrine: No Gastrointestinal Disorders: No Genitourinary: No Hypertension: No Immune Disorder: No Implanted Vascular Access Dvce: No Musculoskeletal: Yes Neurologic: No Reproductive: No Respiratory: Yes Integumentary: Yes (wounds to bilat legs) Immunizations Current: No Radiation Therapy: No Sleep Apnea: Yes Thyroid Disease: Yes (HYPO-) Influenza Vaccination: Yes Past Surgical History Cardiac Surgery: Yes (STENT PLACED IN 09/28) Other Surgery: Yes (RIGHT FOOT) Social History Alcohol Use: No Tobacco Use: No Substance Use: No Allergies-Medications (Allergen,Severity, Reaction): Coded Allergies: *MDRO Multi-Drug Resistant Organism (Verified Adverse Reaction, Unknown, ) 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 Disheveled. SKIN: Focused skin assessment warm/dry. HEAD: Atraumatic. Normocephalic. EYES: Pupils equal and round. No scleral icterus. No injection or drainage. ENT: No nasal bleeding or discharge. Mucous membranes pink and moist. NECK: Trachea midline. No JVD. CARDIOVASCULAR: Regular rate and rhythm. No murmur appreciated. RESPIRATORY: No accessory muscle use. Clear to auscultation. Breath sounds equal bilaterally. GASTROINTESTINAL: Abdomen soft, mild epigastric ttp. No rebound tenderness or guarding. MUSCULOSKELETAL: Bilateral lower ext edema. LLE: 9cm by 9cm open wound lateral knee. No active drainage. Appears dry and chronic. +Erythema in tib/fib. Distal pulses intact. NEUROLOGICAL: Awake and alert. No obvious cranial nerve deficits. Motor grossly within normal limits. Normal speech. PSYCHIATRIC: Appropriate mood and affect; insight and judgment normal. Data Data Last Documented VS Vital Signs Date Time Temp Pulse Resp B/P (MAP) Pulse Ox O2 Delivery O2 Flow Rate FiO2 10/17/16 08:35 98.1 78 16 130/77 (94) 99 10/16/16 21:00 Room Air Orders Orders Complete Blood Count With Diff (10/16/16 20:06) Comprehensive Metabolic Panel (10/16/16 20:06) Lipase (10/16/16 20:06) Urinalysis - C+S If Indicated (10/16/16 20:06) Iv Access Insert/Monitor (10/16/16 20:06) Ecg Monitoring (10/16/16 20:06) Oximetry (10/16/16 20:06) Ondansetron Inj (Zofran Inj) (10/16/16 20:15) Sodium Chloride 0.9% Flush (Ns Flush) (10/16/16 20:15) Ketorolac Inj (Toradol Inj) (10/16/16 20:15) Lactic Acid Sepsis Protocol (10/16/16 20:17) Blood Culture (10/16/16 20:17) Clindamycin Inj (Cleocin Inj) (10/16/16 20:30) Tibia/Fibula (Ap/Lat) (10/16/16 ) Labs Laboratory Tests Test 10/16/16 20:05 10/16/16 21:15 White Blood Count 7.3 TH/MM3 Red Blood Count 4.17 MIL/MM3 Hemoglobin 10.8 GM/DL Hematocrit 33.6 % Mean Corpuscular Volume 80.6 FL Mean Corpuscular Hemoglobin 25.8 PG Mean Corpuscular Hemoglobin Concent 32.0 % Red Cell Distribution Width 15.2 % Platelet Count 176 TH/MM3 Mean Platelet Volume 10.2 FL Neutrophils (%) (Auto) 58.2 % Lymphocytes (%) (Auto) 25.7 % Monocytes (%) (Auto) 7.5 % Eosinophils (%) (Auto) 8.1 % Basophils (%) (Auto) 0.5 % Neutrophils # (Auto) 4.3 TH/MM3 Lymphocytes # (Auto) 1.9 TH/MM3 Monocytes # (Auto) 0.6 TH/MM3 Eosinophils # (Auto) 0.6 TH/MM3 Basophils # (Auto) 0.0 TH/MM3 CBC Comment DIFF FINAL Differential Comment Blood Urea Nitrogen 18 MG/DL Creatinine 1.74 MG/DL Random Glucose 81 MG/DL Total Protein 7.1 GM/DL Albumin 2.9 GM/DL Calcium Level 9.2 MG/DL Alkaline Phosphatase 72 U/L Aspartate Amino Transf (AST/SGOT) 17 U/L Alanine Aminotransferase (ALT/SGPT) 13 U/L Total Bilirubin 0.5 MG/DL Sodium Level 138 MEQ/L Potassium Level 3.9 MEQ/L Chloride Level 106 MEQ/L Carbon Dioxide Level 21.5 MEQ/L Anion Gap 11 MEQ/L Estimat Glomerular Filtration Rate 40 ML/MIN Lactic Acid Level 0.9 mmol/L Lipase 160 U/L Urine Color YELLOW Urine Turbidity CLEAR Urine pH 5.5 Urine Specific [place] 1.013 Urine Protein TRACE mg/dL Urine Glucose (UA) NEG mg/dL Urine Ketones NEG mg/dL Urine Occult Blood NEG Urine Nitrite NEG Urine Bilirubin NEG Urine Urobilinogen LESS THAN 2.0 MG/DL Urine Leukocyte Esterase NEG Urine RBC 2 /hpf Urine WBC 1 /hpf Urine Squamous Epithelial Cells 1 /hpf Microscopic Urinalysis Comment CULT NOT INDICATED MDM Medical Decision Making Medical Screen Exam Complete: Yes Emergency Medical Condition: Yes Differential Diagnosis Chronic left leg wound vs. cellulitis vs. pancreatitis vs. gastritis vs. gastroenteritis vs. homelessness Narrative Course 61yo M her complaining of epigastric abdominal pain. VS stable. Pt is afebrile. Labs reviewed, no leukocytosis. H/H normal. Lactic acid normal at 0.9. Creatinine elevated at 1.74 but is at baseline. Lipase normal. UA negative. Pt came for abdominal pain, nausea and was given toradol and zofran. Pt refused CT scan. Pt reviewed after medication and pain and nausea has resolved. Pt is nontoxic appearing. Left leg wound appears chronic and there is no purulent discharge from wound. Labs are also reassuring. Xray left tib/ fib showed edema. Pt has bactrim and can continue it. I tried to call correctional casework specialist to set up outpatient wound care but case management was not available. I instructed pt to follow up with [facility] or ED in 2 days for wound check. Return precautions given. Pt is waiting for case management in the morning to assist with halfway and wound care. Diagnosis Primary Impression: Abdominal pain Qualified Codes: R10.13 - Epigastric pain Patient Instructions: General Instructions Departure Forms: Tests/Procedures Additional Instructions: Please follow up with [facility] in 2 days for wound check. Return to the ED if symptoms worsen. Med/Other Pt SpecificInfo: Prescription(s) given Scripts Acetaminophen (Tylenol) 325 Mg Tab 650 MG PO Q6H Y for PAIN SCALE 1 TO 4, #20 TAB 0 Refills Prov: MultaniJenny 10/16/16 Disposition: 01 DISCHARGE HOME Condition: Stable Jenny Multani DO Oct 16, 2016 20:11
[2016-10-16] MEDS ORDERED: SODIUM CHLORIDE 0.9% FLUSH 10 ML FLUSH IV FLUSH PRN (20:15)
[2016-10-16] MEDS ORDERED: ONDANSETRON HCL 4 MG/2 ML VIAL IVP ONE (20:15)
[2016-10-16] MEDS ORDERED: KETOROLAC TROMETHAMINE 30 MG/ML (IVP) VIAL IVP ONE (20:15)
[2016-10-16] MEDS ORDERED: CLINDAMYCIN INJ 600 MG in SODIUM CHLORIDE 0.9% INJ 100 ML IV ONE (20:30)
[2016-10-16 21:00] VITALS: RESP 18; O2SAT 97
[2016-10-16 21:08] LABS: AUTOMATED NEUTROPHIL # 4.3 TH/MM3 (1.8-7.7); BASOPHIL % 0.5 % (0.0-2.0); EOSINOPHIL # 0.6 TH/MM3 (0-0.4); EOSINOPHIL % 8.1 % (0.0-4.0); HEMATOCRIT 33.6 % (39.0-51.0); HEMO FLAGS DIFF FINAL; LYMPH % 25.7 % (9.0-44.0); LYMPHOCYTE # 1.9 TH/MM3 (1.0-4.8); MEAN CELL VOLUME 80.6 FL (80.0-100.0); MEAN CORPUSCULAR HEMOGLOBIN 25.8 PG (27.0-34.0); MONO % 7.5 % (0.0-8.0); NEUT % 58.2 % (16.0-70.0); PLATELET COUNT 176 TH/MM3 (150-450); RED BLOOD COUNT 4.17 MIL/MM3 (4.50-5.90); RED CELL DISTRIBUTION WIDTH 15.2 % (11.6-17.2); WHITE BLOOD COUNT 7.3 TH/MM3 (4.0-11.0)
[2016-10-16 21:20] LABS: ANION GAP 11 MEQ/L (5-15); AST (GOT) 17 U/L (15-37); BICARBONATE 21.5 MEQ/L (21.0-32.0); BLOOD UREA NITROGEN 18 MG/DL (7-18); CHLORIDE 106 MEQ/L (98-107); GLOMERULAR FILTRATION RATE 40 ML/MIN (>89); POTASSIUM 3.9 MEQ/L (3.5-5.1); SODIUM (NA) 138 MEQ/L (136-145)
[2016-10-16 21:22] LABS: ALT (GPT) 13 U/L (12-78)
[2016-10-16 21:23] LABS: ALKALINE PHOSPHATASE 72 U/L (45-117); TOTAL BILIRUBIN ADULT 0.5 MG/DL (0.2-1.0)
--- NOTE | 2016-10-16 22:06 | RADRPT ---
EXAM DATE/TIME: 10/16/2016 20:43 [facility] COMPARISON: No previous studies available for comparison. INDICATIONS : Knee operation two weeks ago- infection. MEDICAL HISTORY : Diabetes mellitus type II. MRSA SURGICAL HISTORY : Bone placed in foot to straighten ENCOUNTER: Initial ACUITY: 2 weeks PAIN SCORE: 9/10 LOCATION: Left Lower leg. FINDINGS: Two view examination of the left tibia demonstrates no evidence of fracture or dislocation. The bones appear osteopenic. There is edema in the superficial soft tissues. CONCLUSION: Edema. Too Menezes MD on October 16, 2016 at 21:57 Board Certified Radiologist. This report was verified electronically.
[2016-10-16 22:32] LABS: BLOOD, URINE NEG (NEG); COMMENT (UR) CULT NOT INDICATED; CULTURE IF INDICATED CULT NOT INDICATED; GLUCOSE,URINE NEG (NEG); KETONE, URINE NEG (NEG); NITRITE,URINE NEG (NEG); PH, URINE 5.5 (5.0-8.5); SQUAMOUS EPITHELIAL CELL URINE 1 /hpf (0-5); URINE COLOR YELLOW (YELLW/STRAW)
[2016-10-16] MEDS ORDERED: TYLE325T PO (22:50)
[2016-10-17 08:35] VITALS: BP 130/77; TEMP 98.1
== END 2016-10-17 08:33 | disposition home or self-care (01) ==
LOC: NEPC 19:01
DX: R10.13 Epigastric pain (principal); M13.859 Other specified arthritis, unspecified hip; E78.00 Pure hypercholesterolemia, unspecified; I25.10 Atherosclerotic heart disease of native coronary artery without angina pectoris; E11.9 Type 2 diabetes mellitus without complications; E03.9 Hypothyroidism, unspecified; Z99.3 Dependence on wheelchair; Z79.82 Long term (current) use of aspirin; Z79.899 Other long term (current) drug therapy
CPT/HCPCS: 73590; 80053; 81001; 83605; 83690; 85025; 87040; 96365; 96366; 96375; 99284; J1885; J2405

== ENCOUNTER 2016-11-09 02:33 | Emergency (ER) | payer OTHER, MEDICAID ==
[~2016-11-09 02:33] MED LIST changes: +TYLE325T PO
[2016-11-09 02:40] VITALS: BP 115/68; PULSE 67; RESP 18; O2SAT 96
[2016-11-09] MEDS ORDERED: FUROSEMIDE 20 MG TAB PO ONE (03:00)
[2016-11-09] MEDS ORDERED: ACETAMINOPHEN 500 MG CPLT PO ONE (03:00)
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
--- NOTE | 2016-11-09 04:04 | RADRPT ---
EXAM DATE/TIME: 11/09/2016 03:37 [facility] COMPARISON: CT ABDOMEN & PELVIS W/O CONTRAST, April 30, 2016, 22:19. FEMUR LEFT (AP & LAT/2VWS), September 11, 2016, 1:14. INDICATIONS : Bilateral lower extremity pain from falling out of a wheelchair. MEDICAL HISTORY : Hypothyroidism. Hypercholesterolemia. Arthritis. Diabetes MSRA SURGICAL HISTORY : Coronary artery stent. ENCOUNTER: Initial ACUITY: 1 day PAIN SCORE: 10/10 LOCATION: Bilateral legs FINDINGS: Two-view examination of the left hip and AP view of the pelvis was performed. There are chronic defo rmities of both hips characterized by coxa magna, coxa plana, loss of joint space with, and vertical straightening of the femoral neck bilaterally. The configuration is very similar to prior convention al radiographs in August [address] in April 2016. Osseous structures are diffusely osteopenic. No a cute deformity is seen. The bony pelvic ring appears grossly intact. Metallic density projected ove r the right hip chest appearance suggestive of a zipper fastener. CONCLUSION: No acute findings. Chronic deformity both hips similar to prior. Diffuse osteopenia. Gigi Fields MD on November 09, 2016 at 3:58 Board Certified Radiologist. This report was verified electronically.
--- NOTE | 2016-11-09 04:06 | RADRPT ---
EXAM DATE/TIME: 11/09/2016 03:37 [facility] COMPARISON: KNEE RIGHT COMPLETE (4VWS), April 30, 2016, 3:11. INDICATIONS : Bilateral lower extremity pain from falling out of a wheelchair. MEDICAL HISTORY : Hypothyroidism. Hypercholesterolemia. Arthritis. Diabetes MSRA SURGICAL HISTORY : Coronary artery stent. ENCOUNTER: Initial ACUITY: 1 day PAIN SCORE: 10/10 LOCATION: Bilateral legs FINDINGS: Two view examination of the right knee demonstrates no evidence of fracture or dislocation. On the f rontal view, there is a extrinsic opacity superimposed upon the soft tissues of the medial distal janki t. Bony mineralization is mildly decreased. The suprapatellar soft tissues have a normal configurat ion. The overall appearance of the knee is very similar to prior conventional radiographs in April 17. CONCLUSION: No evidence of recent bony injury. Gigi Fields MD on November 09, 2016 at 4:03 Board Certified Radiologist. This report was verified electronically.
== END 2016-11-09 05:32 | disposition home or self-care (01) ==
LOC: NEPC 02:33
DX: M25.561 Pain in right knee (principal); M25.552 Pain in left hip; W05.0XXA Fall from non-moving wheelchair, initial encounter
CPT/HCPCS: 73502; 73560; 99284

== ENCOUNTER 2016-11-23 07:52 | Emergency (ER) | payer MEDICAID, OTHER ==
[~2016-11-23] VITALS: Ht 167.6 cm; Wt 113.5 kg
[2016-11-23 07:58] VITALS: BP 98/61; PULSE 72; RESP 17; TEMP 97.8; O2SAT 96
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
--- NOTE | 2016-11-23 08:50 | RADRPT ---
EXAM DATE/TIME: 11/23/2016 08:27 [facility] COMPARISON: KNEE RIGHT LTD (1 OR 2 VWS), November 09, 2016, 3:37. INDICATIONS : Pain. MEDICAL HISTORY : None. SURGICAL HISTORY : None. ENCOUNTER: Initial ACUITY: 1 week PAIN SCORE: 5/10 LOCATION: Right anterior knee. FINDINGS: There is mild tricompartmental osteoarthritis. There is no significant joint effusion. No acute fract ure is seen. CONCLUSION: 1. Tricompartment osteoarthritis. No acute fracture. Nader Median MD on November 23, 2016 at 8:48 Board Certified Radiologist. This report was verified electronically.
[2016-11-23 08:59] VITALS: BP 100/64
== END 2016-11-23 09:53 ==
LOC: NEPE 07:52
DX: S80.01XA Contusion of right knee, initial encounter (principal); E11.9 Type 2 diabetes mellitus without complications; W08.XXXA Fall from other furniture, initial encounter; Z79.82 Long term (current) use of aspirin; Z99.3 Dependence on wheelchair
CPT/HCPCS: 73564; 99283

== ENCOUNTER 2016-12-27 21:07 | Emergency (ER) | payer OTHER ==
[~2016-12-27] VITALS: Ht 165.1 cm; Wt 110.0 kg
[~2016-12-27 21:07] MED LIST changes: -ASPI81TA5 PO; +ECASA81 PO
[2016-12-27 21:20] VITALS: BP 141/62; PULSE 75; RESP 20; TEMP 97.6; O2SAT 100
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
[2016-12-27] MEDS ORDERED: CLINDAMYCIN INJ 600 MG in SODIUM CHLORIDE 0.9% INJ 50 ML IV ONE (21:45)
[2016-12-27] MEDS ORDERED: SODIUM CHLORIDE 0.9% FLUSH 10 ML FLUSH IV FLUSH PRN (21:45)
[2016-12-27] MEDS ORDERED: CLINDAMYCIN 600 MG PREMIX 50 ML IV ONE (21:45)
[2016-12-27 21:59] VITALS: O2SAT 96
[2016-12-27 22:48] LABS: AUTOMATED NEUTROPHIL # 8.2 TH/MM3 (1.8-7.7); BASOPHIL # 0.1 TH/MM3 (0-0.2); BASOPHIL % 0.6 % (0.0-2.0); EOSINOPHIL # 0.9 TH/MM3 (0-0.4); EOSINOPHIL % 7.8 % (0.0-4.0); HEMATOCRIT 30.5 % (39.0-51.0); HEMO FLAGS DIFF FINAL; LYMPH % 12.6 % (9.0-44.0); LYMPHOCYTE # 1.4 TH/MM3 (1.0-4.8); MEAN CELL VOLUME 82.6 FL (80.0-100.0); MEAN CORPUSCULAR HEMOGLOBIN 26.9 PG (27.0-34.0); MEAN CORPUSCULAR HGB CONC 32.5 % (32.0-36.0); MONO % 4.8 % (0.0-8.0); NEUT % 74.2 % (16.0-70.0); PLATELET COUNT 204 TH/MM3 (150-450); RED CELL DISTRIBUTION WIDTH 15.7 % (11.6-17.2)
[2016-12-27 23:14] LABS: BICARBONATE 21.2 MEQ/L (21.0-32.0); POTASSIUM 4.1 MEQ/L (3.5-5.1)
[2016-12-27] MEDS ORDERED: DOXY100C PO (23:33)
[2016-12-27] MEDS ORDERED: CEPH-460 PO (23:33)
[2016-12-28 08:10] VITALS: BP 117/58; PULSE 74; RESP 18; O2SAT 98
== END 2016-12-28 09:10 | disposition home or self-care (01) ==
LOC: NEPD 21:07
DX: L03.116 Cellulitis of left lower limb (principal); M25.552 Pain in left hip; G89.29 Other chronic pain; M19.90 Unspecified osteoarthritis, unspecified site; E78.00 Pure hypercholesterolemia, unspecified; I25.10 Atherosclerotic heart disease of native coronary artery without angina pectoris; E11.9 Type 2 diabetes mellitus without complications; G47.30 Sleep apnea, unspecified; E07.9 Disorder of thyroid, unspecified
CPT/HCPCS: 80048; 85025; 96365; 96375

== ENCOUNTER 2016-12-31 00:13 | Emergency (ER) | payer OTHER, MEDICAID ==
[~2016-12-31 00:13] MED LIST changes: -BACT800T5 PO; +CEPH-460 PO; +DOXY100C PO; -TYLE325T PO
[2016-12-31 00:26] VITALS: BP 129/76; PULSE 84; RESP 16; TEMP 97.8; O2SAT 98
--- NOTE | 2016-12-31 02:09 | PD ---
HPI Chief Complaint: Fall Time Seen by Provider: 00:19 Travel History International Travel<30 days: No Contact w/Intl Traveler<30days: No Traveled to known affect area: No History of Present Illness HPI The patient is a 61 year old male who presents to the [facility] emergency department with a history of falling forward out of his wheelchair approximately 2 hours prior to arrival. The patient was brought in by ambulance services. The patient is reportedly homeless and has difficulty caring for himself, however he has been in multiple local nursing homes and leaves AGAINST MEDICAL ADVICE. The patient on arrival reports having a headache. The patient reports having an abrasion to the left hand. The patient reports having bilateral knee pain. The patient is wheelchair-bound related to a history of severe arthritis and bilateral hips. On review of systems, the patient denies having any known recent fevers, cough, congestion, neck pain, chest pain, shortness of breath, abdominal pain, vomiting, diarrhea, urinary symptoms, or new neurologic symptoms. The patient reports that his tetanus is up-to-date. He was last updated 2 years ago. [facility] Past Medical History Narrative Medical The patient's past medical history is significant for hypertension, hypothyroid disorder, hyperlipidemia, sleep apnea, arthritis. Hx Anticoagulant Therapy: Yes (ASA) Arthritis: Yes Asthma: No Blood Disorders: No Heart Rhythm Problems: No Cancer: No Cardiac Catheterization: Yes Cardiovascular Problems: Yes High Cholesterol: Yes Chemotherapy: No Chest Pain: No Congestive Heart Failure: No COPD: No Coronary Artery Disease: Yes Diabetes: No Diminished Hearing: Yes (SLIGHT HEARING LOSS ) Endocrine: No Gastrointestinal Disorders: No Genitourinary: No Hypertension: No Immune Disorder: No Implanted Vascular Access Dvce: No Musculoskeletal: Yes Neurologic: No Reproductive: No Respiratory: Yes Integumentary: Yes Immunizations Current: No Radiation Therapy: No Sleep Apnea: Yes Thyroid Disease: Yes Tetanus Vaccination: < 5 Years Influenza Vaccination: No Past Surgical History Narrative Surgical The patient's past surgical history is significant for cardiac catheterization with stent placement and right foot surgery. Cardiac Surgery: Yes (STENT PLACED IN 09/28) Other Surgery: Yes (RIGHT FOOT) Social History Alcohol Use: No Tobacco Use: No Substance Use: No Allergies-Medications (Allergen,Severity, Reaction): Coded Allergies: *MDRO Multi-Drug Resistant Organism (Verified Adverse Reaction, Unknown, 12/31/16) 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 Reported Meds & Prescriptions Reported Meds & Active Scripts Active Reported Synthroid (Levothyroxine Sodium) 150 Mcg Tab 150 Mcg PO DAILY Coreg (Carvedilol) 6.25 Mg Tab 6.25 Mg PO BID Review of Systems Except as stated in HPI: all other systems reviewed are Neg General / Constitutional: No: Fever Eyes: No: Visual changes HENT: Positive: Headaches, Neck Pain, No: Neck Stiffness Cardiovascular: No: Chest Pain or Discomfort Respiratory: No: Shortness of Breath Gastrointestinal: No: Abdominal Pain Genitourinary: No: Dysuria Musculoskeletal: Positive: Myalgias, Arthralgias, Pain Skin: No Rash Neurologic: No: Weakness Psychiatric: No: Depression Endocrine: No: Polydipsia Hematologic/Lymphatic: No: Easy Bruising Physical Exam Narrative General: The patient is a well-developed well-nourished male, disheveled appearing on examination with a strong odor of urine. Head and Neck exam: Head is normocephalic atraumatic. No visible evidence of trauma, no erythema or ecchymosis. No scalp tenderness on palpation. Eyes: EOMI, pupils are equal round and reactive to light. Nose: Midline septum with pink mucous membranes Mouth: Dentition unremarkable. Moist mucus membranes. Posterior oropharynx is not erythematous. No tonsillar hypertrophy. Uvula midline. Airway patent. Neck: No palpable lymphadenopathy. No nuchal rigidity. No thyromegaly. No spinous process tenderness to palpation. No step-off or crepitus. No erythema or ecchymosis. The patient does however report having cervical paraspinal muscle tenderness on palpation bilaterally. Cardiovascular: Regular rate and rhythm without murmurs, gallops, or rubs. Lungs: Clear to auscultation bilaterally. No wheezes, rhonchi, or rales. Abdomen: Soft, without tenderness to palpation in all 4 quadrants of the abdomen. No guarding, rebound, or rigidity. Normal bowel sounds are audible. No tenderness on palpation of McBurney's point. Extremities: No clubbing or cyanosis. The patient has 1-2+ edema bilateral lower extremities. The patient has hyperpigmentation of bilateral lower extremities related to chronic venous stasis changes. The patient reports having knee pain along the anterior knee bilaterally. There is no step-off or crepitus. No ligament laxity palpated. The patient's capillary refill is 3-4 seconds bilaterally in his feet. Pulses are difficult to palpate in the patient related to his chronic edema. 2+ pulses in bilateral upper extremities. Back: No spinous process tenderness to palpation. No costovertebral angle tenderness to palpation. The patient has kyphosis noted on examination. The patient has no spinous process tenderness to palpation. No step-off or crepitus. No erythema or ecchymosis. Neurologic Exam: Grossly nonfocal. The patient is oriented to person, place, time, and situation. Skin Exam: Skin is warm and dry. Data Data Last Documented VS Vital Signs Date Time Temp Pulse Resp B/P (MAP) Pulse Ox O2 Delivery O2 Flow Rate FiO2 12/31/16 00:26 97.8 84 16 129/76 (93) 98 Orders Orders Acetaminophen (Tylenol) (12/31/16 02:15) Knee, Ltd (1 Or 2vws) (12/31/16 01:55) Knee, Ltd (1 Or 2vws) (12/31/16 01:55) MDM Medical Decision Making Medical Screen Exam Complete: Yes Emergency Medical Condition: Yes Medical Record Reviewed: Yes Interpretation(s) Last Impressions Knee X-Ray 12/31/16154 Signed Impressions: Service Date/Time: Saturday, December 31, 2016 02:14 - CONCLUSION: Unremarkable limited examination of the left knee. Darin Wang MD Knee X-Ray 12/31/16154 Signed Impressions: Service Date/Time: Saturday, December 31, 2016 02:12 - CONCLUSION: Unremarkable limited examination of the right knee. Darin Wang MD Differential Diagnosis Intracranial hemorrhage, versus cervical spine fracture, versus subluxation, versus a fracture, versus knee contusion Narrative Course During the course of the patients emergency department visit, the patients history, examination, and differential diagnosis were reviewed with the patient. The patient was placed on a quality assurance monitor body with oximetry and frequent blood pressure monitoring. The patient had a CT scan of the head and neck ordered, bilateral knee x-rays ordered. The patient was initially provided Tylenol for pain. The patient was taken to CT scan, however the patient refused to lie back to complete the CT scan. He reports that it is related to his chronic back pain. Radiology studies were reviewed and remarkable for bilateral knee x-ray showed no acute abnormality. The patient will be discharged home with a prescription for meloxicam to be taken as needed for pain. The patient is resting comfortably and feels better, is alert and in no distress. The patients results and examination findings were discussed with the patient. The repeat examination is unremarkable and benign. The history, exam, diagnostic testing, and current condition do not suggest any significant pathology to warrant further testing, continued ED treatment, admission, or surgical evaluation at this point. The vital signs have been stable. The patient does not have uncontrollable pain, intractable vomiting, or other significant symptoms. The patient's condition is stable and appropriate for discharge. The patient will pursue further outpatient evaluation with a primary care physician or other designated or consulting physician as indicated in the discharge instructions. The patient expressed understanding and was agreeable with this plan. Diagnosis Primary Impression: Bilateral knee pain Qualified Codes: M25.561 - Pain in right knee; M25.562 - Pain in left knee Additional Impression: Fall Qualified Codes: W19.XXXA - Unspecified fall, initial encounter Referrals: Primary Care Physician 1 week Patient Instructions: General Instructions, Knee Pain (ED) Med/Other Pt SpecificInfo: Prescription(s) given Scripts Meloxicam (Meloxicam) 7.5 Mg Tab 7.5 MG PO DAILY for Arthritis Pain, #7 TAB 0 Refills Prov: Eve Lopez MD 12/31/16 Disposition: 01 DISCHARGE HOME Condition: Stable Eve Lopez MD Dec 31, 2016 02:09
[2016-12-31] MEDS ORDERED: ACETAMINOPHEN 325 MG TAB PO ONE (02:15)
--- NOTE | 2016-12-31 03:02 | RADRPT ---
EXAM DATE/TIME: 12/31/2016 02:12 [facility] COMPARISON: No previous studies available for comparison. INDICATIONS : Knee pain in right knee chronic. MEDICAL HISTORY : None. SURGICAL HISTORY : None. ENCOUNTER: Initial ACUITY: 1 day PAIN SCORE: 0/10 LOCATION: Right knee FINDINGS: Two view examination of the right knee demonstrates no evidence of fracture or dislocation. Bony min eralization is normal. The suprapatellar soft tissues have a normal configuration. CONCLUSION: Unremarkable limited examination of the right knee. Darin Wang MD on December 31, 2016 at 3:00 Board Certified Radiologist. This report was verified electronically.
--- NOTE | 2016-12-31 03:02 | RADRPT ---
EXAM DATE/TIME: 12/31/2016 02:14 [facility] COMPARISON: No previous studies available for comparison. INDICATIONS : Chronic knee pain, MEDICAL HISTORY : None. SURGICAL HISTORY : None. ENCOUNTER: Initial ACUITY: 1 day PAIN SCORE: 0/10 LOCATION: Left knee FINDINGS: Two view examination of the left knee demonstrates no evidence of fracture or dislocation. Bony mine ralization is normal. The suprapatellar soft tissues have a normal configuration. CONCLUSION: Unremarkable limited examination of the left knee. Darin Wang MD on December 31, 2016 at 3:01 Board Certified Radiologist. This report was verified electronically.
[2016-12-31] MEDS ORDERED: MELO7.5T27 PO (03:21)
== END 2016-12-31 04:32 | disposition home or self-care (01) ==
LOC: NEPE 00:13
DX: M25.562 Pain in left knee (principal); M25.561 Pain in right knee; S60.512A Abrasion of left hand, initial encounter; R51 Headache; M79.1 Myalgia; E07.9 Disorder of thyroid, unspecified; G47.30 Sleep apnea, unspecified; I10 Essential (primary) hypertension; W05.0XXA Fall from non-moving wheelchair, initial encounter
CPT/HCPCS: 73560; 99284

== ENCOUNTER 2017-01-01 03:30 | Emergency (ER) | payer OTHER, MEDICAID ==
[~2017-01-01 03:30] MED LIST changes: +MELO7.5T27 PO
[2017-01-01 03:35] VITALS: BP 105/61; PULSE 90; RESP 16; TEMP 98.2; O2SAT 99
--- NOTE | 2017-01-01 04:26 | PD ---
HPI Chief Complaint: Pain: Acute or Chronic Time Seen by Provider: 03:34 Travel History International Travel<30 days: No Contact w/Intl Traveler<30days: No Traveled to known affect area: No History of Present Illness HPI 61-year-old white male presents to emergency department by EMS for evaluation of chronic pain. The patient has a history of mobility problems and ambulates using a wheelchair. Patient has had a history of chronic falls transferring from his wheelchair. The patient once again complains of falls and chronic back , hip and knee pain. He was just seen in the ER 2 days ago for similar complaint. He was seen yesterday at [facility] for the same complaint. The patient has been given prescriptions for pain and skin infections. He has yet to fill his prescriptions. The patient admits to being homeless. Patient has urinary incontinence due to BPH. He states that he has overflow incontinence and is waiting on Dr. Cha to get him a referral to a urologist as well as assisting him in getting into a LONG TERM. The patient had left AGAINST MEDICAL ADVICE from an [facility] because he did not get along with the staff and since then he has been homeless. He is had multiple ER visits most likely due to his homeless status. PFSH Past Medical History Hx Anticoagulant Therapy: Yes (ASA) Arthritis: Yes Asthma: No Blood Disorders: No Heart Rhythm Problems: No Cancer: No Cardiac Catheterization: Yes Cardiovascular Problems: Yes High Cholesterol: Yes Chemotherapy: No Chest Pain: No Congestive Heart Failure: No COPD: No Coronary Artery Disease: Yes Diabetes: No Diminished Hearing: Yes (SLIGHT HEARING LOSS ) Endocrine: No Gastrointestinal Disorders: No Genitourinary: No Hypertension: No Immune Disorder: No Implanted Vascular Access Dvce: No Musculoskeletal: Yes Neurologic: No Reproductive: No Respiratory: Yes Integumentary: Yes Immunizations Current: No Radiation Therapy: No Sleep Apnea: Yes Thyroid Disease: Yes ?: Not Past Surgical History Cardiac Surgery: Yes (STENT PLACED IN 09/28) Other Surgery: Yes (RIGHT FOOT) Social History Alcohol Use: No Tobacco Use: No Substance Use: No Allergies-Medications (Allergen,Severity, Reaction): Coded Allergies: *MDRO Multi-Drug Resistant Organism (Verified Adverse Reaction, Unknown, 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/16) 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 Reported Meds & Prescriptions Reported Meds & Active Scripts Active Meloxicam 7.5 Mg Tab 7.5 Mg PO DAILY Reported Synthroid (Levothyroxine Sodium) 150 Mcg Tab 150 Mcg PO DAILY Coreg (Carvedilol) 6.25 Mg Tab 6.25 Mg PO BID Review of Systems General / Constitutional: No: Fever Eyes: No: Visual changes HENT: No: Headaches Cardiovascular: No: Chest Pain or Discomfort Respiratory: No: Shortness of Breath Gastrointestinal: No: Abdominal Pain Genitourinary: No: Dysuria Musculoskeletal: Positive: Arthralgias, Limited ROM, Weakness, Pain Skin: Positive Rash Neurologic: Positive: Incontinence, No: Weakness Psychiatric: No: Depression Endocrine: No: Polydipsia Hematologic/Lymphatic: No: Easy Bruising Physical Exam Narrative GENERAL: This is a well-nourished, well-developed patient, in no apparent distress. SKIN: Patient has first degree developing into second-degree sacral decubitus along with skin breakdown on both butt cheeks. There is also a large area of erythema and superficial skin breakdown under his pannus with clear serous discharge consistent with panniculitis, ecchymoses or lesions. HEAD: Atraumatic. Normocephalic. EYES: PERRL, EOMI, no discharge or injection. No scleral icterus. EARS: Clear NOSE: Nasal turbinates appear normal. THROAT: Mucosa pink and moist. Airway patent. NECK: Trachea midline. supple, moves head freely. LUNGS: Clear to auscultation. CV: Regular in rhythm. ABDOMEN: Soft nontender. EXT: No clubbing cyanosis. Pulse 1 pedal Edema. Complaints of pain in both hips and both knees. Data Data Last Documented VS Vital Signs Date Time Temp Pulse Resp B/P (MAP) Pulse Ox O2 Delivery O2 Flow Rate FiO2 01/01/17 03:35 98.2 90 16 105/61 (76) 99 [facility] Medical Decision Making Medical Screen Exam Complete: Yes Emergency Medical Condition: Yes Medical Record Reviewed: Yes Differential Diagnosis MDM: High Differential diagnoses: Fracture, sprain, strain, dislocation, contusion, neurovascular injury, cellulitis, decubitus ulcer, panniculitis Narrative Course I discussed the case with Yumiko with case management. They will look into long-term treatment facilities. He will also attempt to contact his primary care doctor in the morning. The patient will be allowed to sleep here in the ER until this time. Patient has prescriptions to treat both his chronic pain in his wound infections. This is chronic pain, falls, sacral decubitus, panniculitis Disposition by case management. Diagnosis Primary Impression: chronic pain Additional Impressions: Falls frequently sacrodecubitus Panniculitis Patient Instructions: General Instructions Additional Instructions: Rest. Get your prescriptions filled and take as directed. Daily wound care with soap, water, Lamisil AT. Follow-up with your doctor within 24 hours for recheck. Return to the ER for emergencies. Med/Other Pt SpecificInfo: No Change to Meds, Wound Care Disposition: 01 DISCHARGE HOME Condition: Stable Edouard Masters Jan 01, 2017 04:26
[2017-01-01 16:30] VITALS: BP 117/64; PULSE 66; RESP 20; O2SAT 97
--- NOTE | 2017-01-01 17:05 | PD ---
Physical Exam Date Seen by Provider: Jan 01, 2017 Time Seen by Provider: 16:55 Data Data Last Documented VS Vital Signs Date Time Temp Pulse Resp B/P (MAP) Pulse Ox O2 Delivery O2 Flow Rate FiO2 01/02/17 10:52 70 20 129/65 (86) 97 Room Air 01/01/17 03:35 98.2 Orders Orders Diet Regular Basic (01/01/17 Lunch) Diet Regular Basic (01/01/17 Dinner) Ed Discharge Order (01/01/17 18:19) Diet Regular Basic (01/02/17 Breakfast) MDM Medical Record Reviewed: Yes Supervised Visit with CEZAR: Yes Narrative Course Patient was seen by previous provider and medically cleared to be dispositioned home. Disposition was left to case management because patient has previously left AGAINST MEDICAL ADVICE from [facility] and is homeless. Case management has been working tirelessly today to establish a facility for patient to be sent to. [place], from case management, has called multiple facilities. Many facilities refused to accept patient. Patient initially stated he would only go to [facility] or the [facility]. [facility] refuses to accept him. The [facility] would take him the patient has no transport. Transport efforts were attempted without any success because patient cannot transfer to and from [employer]'s car. He also has no funds to pay for [employer] or taxi. Patient was informed that there are no other options other than to be discharged. I spoke to the hospitalist on-call, Dr. Liao, for social admit. Hospitalist refused because there are no medical indications for admission at this time. Patient will be discharged. He should follow-up with his primary care physician for direct admission to assisted living facility. Addendum: The morning after discharge, case management was able to facilitate [facility]. Diagnosis Primary Impression: chronic pain Additional Impressions: Falls frequently Panniculitis sacrodecubitus Homelessness Patient Instructions: General Instructions Additional Instruction: Rest. Get your prescriptions filled and take as directed. Daily wound care with soap, water, Lamisil AT. Follow-up with your doctor within 24 hours for recheck. Return to the ER for emergencies. Disposition: 01 DISCHARGE HOME Condition: Stable Indu Keita Jan 01, 2017 17:05
[2017-01-02 10:52] VITALS: BP 129/65; PULSE 70; RESP 20; O2SAT 97
[2017-01-02] MEDS ORDERED: IBUP-232 PO (15:01)
== END 2017-01-02 10:53 | disposition home or self-care (01) ==
LOC: NEPD 03:30
DX: G89.29 Other chronic pain (principal); M79.3 Panniculitis, unspecified; M54.9 Dorsalgia, unspecified; M25.559 Pain in unspecified hip; M25.569 Pain in unspecified knee; I25.10 Atherosclerotic heart disease of native coronary artery without angina pectoris; M19.90 Unspecified osteoarthritis, unspecified site; E78.00 Pure hypercholesterolemia, unspecified; Z59.0 Homelessness
CPT/HCPCS: 99285

== ENCOUNTER 2017-01-02 11:38 | Emergency (ER) | payer OTHER, MEDICAID ==
[~2017-01-02] VITALS: Ht 167.6 cm; Wt 120.0 kg
[2017-01-02 11:41] VITALS: BP 106/58; PULSE 77; RESP 16; TEMP 97.9; O2SAT 98
--- NOTE | 2017-01-02 15:00 | PD ---
HPI Chief Complaint: Injury Time Seen by Provider: 14:11 Travel History International Travel<30 days: No Contact w/Intl Traveler<30days: No Traveled to known affect area: No History of Present Illness HPI 61-year-old male presents to the emergency department complaining of right thigh pain after a fall that occurred yesterday. States he fell out of a chair and onto the ground and developed right thigh pain. She could not describe his fall to me. Patient states that he has normal sensation and movement of his thigh and right lower extremity. He points to the middle aspect of the anterior portion of his thigh. States he has pain with palpation. He has not taken any medication for his pain. PFSH Past Medical History Hx Anticoagulant Therapy: Yes (ASA) Arthritis: Yes Asthma: No Blood Disorders: No Heart Rhythm Problems: No Cancer: No Cardiac Catheterization: Yes Cardiovascular Problems: Yes High Cholesterol: Yes Chemotherapy: No Chest Pain: No Congestive Heart Failure: No COPD: No Coronary Artery Disease: Yes Diabetes: No Diminished Hearing: Yes (SLIGHT HEARING LOSS ) Endocrine: No Gastrointestinal Disorders: No Genitourinary: No Hypertension: No Immune Disorder: No Implanted Vascular Access Dvce: No Musculoskeletal: Yes Neurologic: No Reproductive: No Respiratory: Yes Integumentary: Yes Immunizations Current: No Radiation Therapy: No Sleep Apnea: Yes Thyroid Disease: Yes Past Surgical History Cardiac Surgery: Yes (STENT PLACED IN 09/28) Other Surgery: Yes (RIGHT FOOT) Social History Alcohol Use: No Tobacco Use: No Substance Use: No Allergies-Medications (Allergen,Severity, Reaction): Coded Allergies: *MDRO Multi-Drug Resistant Organism (Verified Adverse Reaction, Unknown, 12/31/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 HEAD: Normocephalic. EYES: No scleral icterus. No injection or drainage. NECK: Supple, trachea midline. No JVD or lymphadenopathy. CARDIOVASCULAR: Regular rate and rhythm without murmurs, gallops, or rubs. RESPIRATORY: No accessory muscle use. MUSCULOSKELETAL: No cyanosis, or edema. Right thigh- TTP mid thigh with small contusion, no ecchymosis or deformities noted. BACK: Nontender without obvious deformity. No CVA tenderness. Data Data Last Documented VS Vital Signs Date Time Temp Pulse Resp B/P (MAP) Pulse Ox O2 Delivery O2 Flow Rate FiO2 01/02/17 11:41 97.9 77 16 106/58 (74) 98 Orders Orders Femur (Ap & Lat/2vws) (01/02/17 ) Ed Discharge Order (01/02/17 15:01) [facility] Medical Decision Making Medical Screen Exam Complete: Yes Emergency Medical Condition: Yes Differential Diagnosis Right femur contusion versus fracture versus abrasion versus muscle strength Narrative Course 61-year-old male presents to the emergency department complaining of right thigh pain after a fall that occurred yesterday. States he fell out of a chair and onto the ground and developed right thigh pain. She could not describe his fall to me. Patient states that he has normal sensation and movement of his thigh and right lower extremity. He points to the middle aspect of the anterior portion of his thigh. States he has pain with palpation. He has not taken any medication for his pain. Vital signs stable Right leg neurovascular intact, no deformities or crepitus- no evidence of fracture Patient unable to lay flat for the xray. Since I have such a low suspicion of fracture or serious injury, decided to cancel the xray and have pt follow up with his primary care physician. Pt is homeless. I spoke with case management and she states that he has been trying to get placed in a home. Patient to follow up with primary care physician. Patient agreed with the plan and will comply. Diagnosis Primary Impression: Contusion of leg Qualified Codes: S80.11XA - Contusion of right lower leg, initial encounter Referrals: [facility] Additional Instructions: If your symptoms persist or worsen return to the emergency department He take [id number] ibuprofen or Tylenol or use the medication as prescribed. Aloe up with [facility] within 3 days. Scripts Ibuprofen (Ibuprofen) 600 Mg Tab 600 MG PO TID for Arthritis Pain for 3 Days, TAB 0 Refills Prov: Jenny Multani DO 01/02/17 Disposition: 01 DISCHARGE HOME Condition: Stable Michelle Mora Jan 02, 2017 15:00
[2017-01-02] MEDS ORDERED: IBUP-232 PO (15:01)
== END 2017-01-02 15:40 | disposition home or self-care (01) ==
LOC: NEPK 11:38
DX: S80.11XA Contusion of right lower leg, initial encounter (principal); W07.XXXA Fall from chair, initial encounter
CPT/HCPCS: 99283

== ENCOUNTER 2017-01-02 17:33 | Emergency (ER) | payer OTHER, MEDICAID ==
[~2017-01-02] VITALS: Ht 167.6 cm; Wt 110.0 kg
[~2017-01-02 17:33] MED LIST changes: +IBUP-232 PO
[2017-01-02 17:42] VITALS: BP 125/58; PULSE 82; RESP 13; TEMP 98.5; O2SAT 99
--- NOTE | 2017-01-02 18:49 | PD ---
HPI Chief Complaint: Medical Clearance Time Seen by Provider: 18:45 Travel History International Travel<30 days: No Contact w/Intl Traveler<30days: No Traveled to known affect area: No History of Present Illness HPI Patient is a 61-year-old male who presents to emergency room for homelessness. Patient reports that he is covered in stool, reports that he wishes to bathed. Patient reports that he is homeless, reports that he is cold and needs a place to stay. Patient was seen in the emergency room this morning, was discharged to the homeless coalition today, reports that he needs a warm place to stay. Patient reports that he had an episode of diarrhea earlier today, patient requesting to be cleaned. Patient with no abdominal pain, no nausea vomiting and diarrhea this time. Patient at this point with no medical complaints History Past Medical Histgory Hx Cancer: No Hx Chemotherapy: No Hx Radiation Therapy: No Social History Alcohol Use: No Tobacco Use: No Allergies-Medications (Allergen,Severity, Reaction): Coded Allergies: *MDRO Multi-Drug Resistant Organism (Verified Adverse Reaction, Unknown, 12/31/16) 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 Reported Meds & Prescriptions Reported Meds & Active Scripts Active Ibuprofen 600 Mg Tab 600 Mg PO TID 3 Days Meloxicam 7.5 Mg Tab 7.5 Mg PO DAILY Reported Synthroid (Levothyroxine Sodium) 150 Mcg Tab 150 Mcg PO DAILY Coreg (Carvedilol) 6.25 Mg Tab 6.25 Mg PO BID Review of Systems General / Constitutional: No: Fever Eyes: No: Visual changes HENT: No: Headaches Cardiovascular: No: Chest Pain or Discomfort Respiratory: No: Shortness of Breath Gastrointestinal: No: Abdominal Pain Genitourinary: No: Dysuria Musculoskeletal: No: Pain Skin: No Rash Neurologic: No: Weakness Psychiatric: No: Depression Endocrine: No: Polydipsia Hematologic/Lymphatic: No: Easy Bruising Physical Exam Narrative GENERAL: Well-nourished, well-developed patient. SKIN: Focused skin assessment warm/dry. HEAD: Normocephalic. EYES: No scleral icterus. No injection or drainage. NECK: Supple, trachea midline. No JVD or lymphadenopathy. CARDIOVASCULAR: Regular rate and rhythm without murmurs, gallops, or rubs. RESPIRATORY: Breath sounds equal bilaterally. No accessory muscle use. GASTROINTESTINAL: Abdomen soft, non-tender, nondistended. Data Data Last Documented VS Vital Signs Date Time Temp Pulse Resp B/P (MAP) Pulse Ox O2 Delivery O2 Flow Rate FiO2 01/02/17 17:42 98.5 82 13 125/58 (80) 99 MDM Medical Screen Exam Complete: Yes Emergency Medical Condition: No Narrative Course A medical screening exam was performed: At the time of evaluation the presenting medical condition was determined not to be of an emergent nature. The patient was given the option of receiving additional care, but declined. Patient was given options for additional community resources from which to obtain care. The Patient Has Been advised to seek medical attention for their presenting complaint. The patient has been advised to return to the ER at any time if an emergent condition develops. Primary Impression: Encounter for medical screening examination Additional Impression: Homelessness Haley Delgado DO Jan 02, 2017 18:48
== END 2017-01-02 19:04 | disposition left against medical advice (07) ==
LOC: NEDAMB 17:33
DX: R19.7 Diarrhea, unspecified (principal); Z59.0 Homelessness
CPT/HCPCS: 99281

== ENCOUNTER 2017-07-05 10:03 | Emergency (ER) | payer OTHER, MEDICAID ==
[~2017-07-05] VITALS: Ht 170.2 cm; Wt 118.0 kg
[~2017-07-05 10:03] MED LIST changes: -B-12100T PO; -CEPH-460 PO; -DOXY100C PO; -ECASA81 PO; -FURO1TAB62 PO
[2017-07-05 10:15] VITALS: BP 121/70; PULSE 63; RESP 17; TEMP 97.7; O2SAT 100
[2017-07-05] MEDS ORDERED: SODIUM CHLORIDE 0.9% FLUSH 10 ML FLUSH IVF PRN (11:00)
[2017-07-05 11:01] VITALS: O2SAT 98
[2017-07-05 11:31] LABS: AUTOMATED NEUTROPHIL # 5.2 TH/MM3 (1.8-7.7); BASOPHIL % 0.5 % (0.0-2.0); EOSINOPHIL # 0.1 TH/MM3 (0-0.4); EOSINOPHIL % 1.7 % (0.0-4.0); HEMATOCRIT 32.4 % (39.0-51.0); HEMOGLOBIN 11.1 GM/DL (13.0-17.0); LYMPH % 13.3 % (9.0-44.0); LYMPHOCYTE # 0.9 TH/MM3 (1.0-4.8); MEAN CELL VOLUME 82.7 FL (80.0-100.0); MEAN CORPUSCULAR HEMOGLOBIN 28.3 PG (27.0-34.0); MEAN CORPUSCULAR HGB CONC 34.2 % (32.0-36.0); MEAN PLATELET VOLUME 10.3 FL (7.0-11.0); MONO % 4.1 % (0.0-8.0); MONOCYTE # 0.3 TH/MM3 (0-0.9); NEUT % 80.4 % (16.0-70.0); PLATELET COUNT 160 TH/MM3 (150-450); RED BLOOD COUNT 3.92 MIL/MM3 (4.50-5.90); RED CELL DISTRIBUTION WIDTH 15.2 % (11.6-17.2); WHITE BLOOD COUNT 6.4 TH/MM3 (4.0-11.0)
[2017-07-05 11:43] LABS: INTERNATIONAL NORMALIZED RATIO 1.4 RATIO
[2017-07-05 12:04] LABS: ALBUMIN 3.2 GM/DL (3.4-5.0); ALT (GPT) 743 U/L (12-78); AST (GOT) 841 U/L (15-37); BICARBONATE 18.2 MEQ/L (21.0-32.0); BLOOD UREA NITROGEN 34 MG/DL (7-18); CALCIUM 8.2 MG/DL (8.5-10.1); CHLORIDE 112 MEQ/L (98-107); CREATININE 2.22 MG/DL (0.60-1.30); GLOMERULAR FILTRATION RATE 30 ML/MIN (>89); GLUCOSE,RANDOM 81 MG/DL (74-106); MAGNESIUM 2.1 MG/DL (1.5-2.5); SODIUM (NA) 139 MEQ/L (136-145)
[2017-07-05 12:06] LABS: ALKALINE PHOSPHATASE 133 U/L (45-117); TOTAL BILIRUBIN ADULT 0.9 MG/DL (0.2-1.0); TOTAL PROTEIN 7.2 GM/DL (6.4-8.2)
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
--- NOTE | 2017-07-05 13:02 | RADRPT ---
EXAM DATE/TIME: 07/05/2017 12:13 [facility] COMPARISON: No previous studies available for comparison. INDICATIONS : Bilateral leg swelling. MEDICAL HISTORY : Stroke. Hypercholesterolemia. Thyroid disease. Hearing loss. Coronary artery disease. Anticoagulant therpay, asa. Sleep apnea. Arthritis. MRSA. SURGICAL HISTORY : Cardiac stent. Cardiac catheterization. Right foot surgery. ENCOUNTER: Subsequent ACUITY: 2 weeks PAIN SCORE: 2/10 LOCATION: Bilateral legs. TECHNIQUE: Venous ultrasound of the left and right leg was performed from the inguinal ligament to the proximal calf. Real-time, color Doppler and spectral tracing, compression and augmentation techniques were us ed. FINDINGS: RIGHT LEG: There is normal compressibility of the deep venous system from the inguinal region to the proximal ca lf. No echogenic clot is seen in the lumen of the common femoral, femoral, popliteal, and posterior tibial veins. There is a normal response of the venous system to proximal and distal augmentation an d respiration. LEFT LEG: There is normal compressibility of the deep venous system from the inguinal region to the proximal ca lf. No echogenic clot is seen in the lumen of the common femoral, femoral, popliteal, and posterior tibial veins. There is a normal response of the venous system to proximal and distal augmentation an d respiration. CONCLUSION: 1. Negative for deep venous thrombosis bilateral lower extremity. Gigi Fields MD on July 05, 2017 at 12:59 Board Certified Radiologist. This report was verified electronically.
[2017-07-05] MEDS ORDERED: ASP: Only reason for admit - IV antibiotics OTHER ONE (14:15)
[2017-07-05] MEDS ORDERED: ASP: Location of Dalbavancin administration OTHER ONE (14:15)
[2017-07-05] MEDS ORDERED: PHARMACY INFORMATION XX ONE (14:15)
[2017-07-05] MEDS ORDERED: ASP: No known hypersensitivity to Vanco, Telavancin, Dalbavancin OTHER ONE (14:15)
[2017-07-05] MEDS ORDERED: ASP: Does not meet inpatient admission criteria OTHER ONE (14:15)
[2017-07-05] MEDS ORDERED: DALBAVANCIN INJ 1,125 MG in DEXTROSE 5% IN WATER INJ 250 ML IV STA ×2 (14:22)
[2017-07-05 15:00] VITALS: BP 128/70; PULSE 66; RESP 18; O2SAT 97
--- NOTE | 2017-07-05 15:14 | EKG ---
Date Performed: 07/05/2017 Time Performed: 11:36:19 PTAGE: 62 years EKG: SINUS BRADYCARDIA RIGHT BUNDLE BRANCH BLOCK LEFT ANTERIOR FASCICULAR BLOCK POSSIBLE HIGH LA TERAL INFARCT, AGE UNDETERMINED ABNORMAL ECG PREVIOUS TRACING : 03/05/2016 14.53 No significant change from previous tracing noted. DOCTOR: Bobby Almanza Interpretating Date/Time 07/05/2017 15:12:41
== END 2017-07-05 18:50 | disposition home or self-care (01) ==
LOC: NEPC 10:03
DX: R74.0 Nonspecific elevation of levels of transaminase and lactic acid dehydrogenase [LDH] (principal); L03.116 Cellulitis of left lower limb; M79.604 Pain in right leg; R94.31 Abnormal electrocardiogram [ECG] [EKG]; E66.9 Obesity, unspecified; E07.9 Disorder of thyroid, unspecified; E78.00 Pure hypercholesterolemia, unspecified; G47.30 Sleep apnea, unspecified; Z79.899 Other long term (current) drug therapy; Z79.82 Long term (current) use of aspirin; Z87.39 Personal history of other diseases of the musculoskeletal system and connective tissue; Z86.79 Personal history of other diseases of the circulatory system; Z87.09 Personal history of other diseases of the respiratory system
CPT/HCPCS: 80053; 83735; 85025; 85610; 85730; 93005; 93970; 96365; 96366; 99284; J0875; J7060